=== PATIENT | female | born 1945 | race Caucasian/White ===

== ENCOUNTER 2022-09-30 15:05 | Observation (INO) ==
[2022-09-30 16:16] LABS: Basophils # (auto) 0.01 K/uL (0-0.2); Basophils % (auto) 0.1 %; Eosinophils # (auto) 0.07 K/uL (0-0.50); Eosinophils % (auto) 0.7 %; Hematocrit (blood only) 33.4 % (37.0-47.0); Hemoglobin 10.6 g/dl (12.0-16.0); Immature Granulocytes # (auto) 0.04 K/uL (0.01-0.20); Immature Granulocytes % (auto) 0.4 %; Lymphocytes # (auto) 2.23 K/uL (1.2-3.4); Lymphocytes % (auto) 21.2 %; Mean Corpuscular Hemoglobin 24.9 pg (25.0-34.0); Mean Corpuscular Hgb Conc 31.7 g/dL (32.0-36.0); Mean Corpuscular Volume 78.4 fL (80.0-100.0); Mean Platelet Volume 8.7 fL (9.4-12.4); Monocytes # (auto) 1.04 K/uL (0.11-0.59); Monocytes % (auto) 9.9 %; Neutrophils # (auto) 7.12 K/uL (1.40-6.50); Neutrophils % (auto) 67.7 %; Platelet Count 368 K/uL (130-400); RDW Coefficient of Variation 17.9 % (11.5-14.5); RDW Standard Deviation 50.6 fL (36.4-46.3); Red Blood Count 4.26 M/uL (4.20-5.40); White Blood Count 10.51 K/ul (4.8-10.8)
--- NOTE | 2022-09-30 16:22 | Emergency Department Note ---
Impression & Plan Partial small bowel obstruction, DVT (deep venous thrombosis) ED Provider Note NAME: RAMA LAWTON AGE: 77 SEX: F : 1945 ARRIVES VIA: Ambulance INFORMANT: Patient ED PROVIDER(S): Tommy Yanes DO CHIEF COMPLAINT: Swelling in the right lower extremity HPI: Patient is a 77-year-old female who presents to the ER for abdominal pain associated with swelling in the right lower extremity. Patient symptoms have been present and worsening for the past 2 months. She was seen at [place] and had a thrombectomy performed there in mid September. She was discharged on Coumadin. Her INR has been therapeutic. Her swelling in the right lower extremity has been getting worse. She admits to some nausea no vomiting. She did vomit over the weekend on Wednesday. Denies any headache or change in vision. No chest pain. No dysuria, urgency, or frequency. She denies any tingling or numbness but admits to pain and difficulty walking in the right leg. PAST MEDICAL HISTORY:See Below PAST SURGICAL HISTORY:See Below FAMILY HISTORY:See Below SOCIAL HISTORY:See Below HOME MEDICATIONS:See Below ALLERGIES:See Below VITALS:See Below PHYSICAL EXAMINATION: GENERAL: Sitting up in bed, alert, well appearing, well nourished, no distress, non-toxic EYE EXAM: normal conjunctiva. OROPHARYNX: no exudate, no erythema, lips, buccal mucosa, and tongue normal and mucous membranes are moist NECK: supple, no nuchal rigidity, no adenopathy, non-tender LUNGS: Clear to auscultation. Normal chest wall mechanics HEART: no murmurs, S1 normal and S2 normal ABDOMEN: abdomen soft, non-tender, normo-active bowel sounds, no masses, no rebound or guarding. UPPER EXTREMITIES: upper extremities are grossly normal. LOWER EXTREMITIES: Pitting edema in the right extremity significantly larger than the left. Difficult to obtain DP and PT. NEURO EXAM: Normal sensorium, cranial nerves II-XII grossly intact, normal speech, no gross weakness of arms, no gross weakness of legs. MEDICAL DECISION MAKING: Patient is a 77-year-old female who presents ER for above-stated complaint. IV was established blood work was obtained. Labs show no significant leukocytosis. Mild anemia 10. INR therapeutic at 2.1. BMP along LFTs bilirubin and troponin and lipase was negative. Patient does have a history of cancer and does have a positive PET scan per the report of the daughter. Patient is on Coumadin. Significant increase in swelling in the right leg consistent with failure of Coumadin. Ideally the patient would have been on Lovenox with a known cancer and DVT. Patient was placed on heparin drip. CT abdomen pelvis showed partial bowel obstruction. Discussed with Andre from general surgery who evaluate the patient. Discussed with Dr. Rivera for further evaluation management treatment from the hospitalist service. Patient was placed on heparin drip and given heparin bolus in light of the therapeutic Coumadin at 2.1 which is clearly not treating the DVT. Triage Nursing notes reviewed. Limited review of prior medical records performed Vital Signs: reviewed and remarkable for no significant abnormalities Differential diagnosis: Differential diagnoses includes but is not limited to gastritis, peptic ulcer disease, GERD, gallbladder disease, pancreatitis, small bowel obstruction, appendicitis, diverticulitis, hernia, urinary tract infection, torsion, perforation, trauma, infectious. ER treatment provided: See below Diagnostics interpreted by me include EKG and cardiac monitoring as listed below: -Cardiac Monitoring: An order was placed for continuous cardiac monitoring. The monitor shows a rate of 90 with sinus rhythm. -ECG: Sinus rhythm rate of 85 Normal axis No PVCs Septal Q waves QTc 421 -Laboratory studies:Interpreted by me as stated above in MDM and shown below. Imaging studies: Xrays: As interpreted by me: Portable AP upright 1 view of the chest shows no focal infiltrate Venous duplex of the right lower extremity shows extensive DVT Arterial duplex of the leg shows normal pulses CTs show: CT abdomen pelvis as described above Consultation(s): As described in MDM Procedures:none Critical Care: I have personally spent 32 minutes of critical care time in the direct management of this patient. This includes bedside care, interpretation of diagnostic studies, and testing, discussion with consultants, patient, and family members, and other required patient management activities. This 32 minutes is in excess of all separately billable procedures. Past Med/Surg History Social History Smoking Status: Never smoker Preferred Language: Estonian Feels Safe at Home: Yes Allergies Allergies Allergy/AdvReac Type Severity Reaction Status Date / Time No Known Drug Allergies Allergy Unknown . Verified 09/30/22 17:38 Home Meds Home Medications Medication Instructions Recorded Confirmed acetaminophen 500 mg tablet 500 - 1,000 mg PO Q6H PRN Pain 09/30/22 09/30/22 (Tylenol Extra Strength) hydrochlorothiazide 25 mg tablet 25 mg PO DAILY PRN swelling in legs 09/30/22 09/30/22 metoprolol succinate 50 mg 50 mg PO DAILY 09/30/22 09/30/22 tablet,extended release 24 hr oxycodone-acetaminophen 5 mg-325 1 tab PO Q6 PRN Pain 09/30/22 09/30/22 mg tablet pantoprazole 40 mg tablet,delayed 40 mg PO QAM 09/30/22 09/30/22 release promethazine 12.5 mg tablet 12.6 mg PO Q6 PRN Nausea And 09/30/22 09/30/22 Vomiting warfarin 2.5 mg tablet 2.5 mg PO UD 09/30/22 09/30/22 Results & Data (ED) Vital Signs Vital Signs - 24 hr 09/30/22 15:13 09/30/22 16:01 09/30/22 16:21 Temperature 36.4 C L Temperature Source Temporal Artery Scan Pulse Rate 92 H 85 Pulse Rate [Apical] 88 Pulse Rate from SpO2 Sensor Pulse Rhythm [Apical] Regular Respiratory Rate 20 17 Respiratory Depth Normal Normal Blood Pressure 136/79 Blood Pressure [Left Arm] 156/89 H Blood Pressure Mean 98 Blood Pressure Mean [Left Arm] 111 Pulse Oximetry 96 95 Oxygen Delivery Method Room Air Room Air Sepsis Recent Fever Within 48 Hours No Sepsis New/Unexplained Change in Mental Status N/A Sepsis Action Taken by Nursing No Action Required 09/30/22 16:20 09/30/22 16:20 09/30/22 16:30 Temperature Temperature Source Pulse Rate 86 86 Pulse Rate [Apical] Pulse Rate from SpO2 Sensor 87 86 Pulse Rhythm [Apical] Respiratory Rate 22 17 Respiratory Depth Blood Pressure 156/99 H Blood Pressure [Left Arm] Blood Pressure Mean 101 Blood Pressure Mean [Left Arm] Pulse Oximetry 95 96 Oxygen Delivery Method Sepsis Recent Fever Within 48 Hours Sepsis New/Unexplained Change in Mental Status Sepsis Action Taken by Nursing 09/30/22 18:26 09/30/22 18:30 09/30/22 18:40 Temperature Temperature Source Pulse Rate 90 90 90 Pulse Rate [Apical] Pulse Rate from SpO2 Sensor 90 90 92 H Pulse Rhythm [Apical] Respiratory Rate 18 21 20 Respiratory Depth Blood Pressure Blood Pressure [Left Arm] Blood Pressure Mean Blood Pressure Mean [Left Arm] Pulse Oximetry 97 97 96 Oxygen Delivery Method Sepsis Recent Fever Within 48 Hours Sepsis New/Unexplained Change in Mental Status Sepsis Action Taken by Nursing 09/30/22 19:07 09/30/22 20:09 Temperature Temperature Source Pulse Rate Pulse Rate [Apical] 92 H 101 H Pulse Rate from SpO2 Sensor Pulse Rhythm [Apical] Respiratory Rate 20 20 Respiratory Depth Normal Blood Pressure Blood Pressure [Left Arm] 119/70 140/85 Blood Pressure Mean Blood Pressure Mean [Left Arm] 86 103 Pulse Oximetry 96 96 Oxygen Delivery Method Room Air Room Air Sepsis Recent Fever Within 48 Hours Sepsis New/Unexplained Change in Mental Status Sepsis Action Taken by Nursing Laboratory Data 09/30/22 15:58 09/30/22 15:58 Lab Results 09/30/22 09/30/22 09/30/22 Range/Units 15:58 15:58 15:58 WBC 10.51 (4.8-10.8) K/ul RBC 4.26 (4.20-5.40) M/uL Hgb 10.6 L (12.0-16.0) g/dl Hct 33.4 L (37.0-47.0) % MCV 78.4 L (80.0-100.0) fL MCH 24.9 L (25.0-34.0) pg MCHC 31.7 L (32.0-36.0) g/dL RDW Std Deviation 50.6 H (36.4-46.3) fL RDW Coeff of Adam 17.9 H (11.5-14.5) % Plt Count 368 (130-400) K/uL MPV 8.7 L (9.4-12.4) fL Immature Gran % (Auto) 0.4 % Neut % (Auto) 67.7 % Lymph % (Auto) 21.2 % Bibb % (Auto) 9.9 % Eos % (Auto) 0.7 % Baso % (Auto) 0.1 % Neut # (Auto) 7.12 H (1.40-6.50) K/uL Lymph # (Auto) 2.23 (1.2-3.4) K/uL Bibb # (Auto) 1.04 H (0.11-0.59) K/uL Eos # (Auto) 0.07 (0-0.50) K/uL Baso # (Auto) 0.01 (0-0.2) K/uL Immature Gran # (Auto) 0.04 (0.01-0.20) K/uL PT 21.9 H (9.0-12.0) Seconds INR 2.1 H (0.9-1.1) APTT (21.0-31.0) Seconds PTT Ratio Sodium 135 L (136-145) mmol/L Potassium 3.9 (3.5-5.1) mmol/L Chloride 104 (98-107) mmol/L Carbon Dioxide 23 (21-32) mmol/L Anion Gap 8 (3-11) BUN 36 H (6-23) mg/dl Creatinine 1.02 (0.6-1.2) mg/dl Est Cr Clr Drug Dosing Not Reportable Est GFR ( Amer) 61.4 ml/min Est GFR (Non-Af Amer) 53.0 ml/min BUN/Creatinine Ratio 35.3 H (10-20) Glucose 123 H (70-99(Fasting)) mg/dl Calcium 8.4 L (8.6-10.3) mg/dl Total Bilirubin 0.3 (0.2-1.0) mg/dl AST 10 L (13-39) U/L ALT 6 L (7-52) U/L Alkaline Phosphatase 54 (34-104) U/L Troponin I High Sens 6.6 (0-14) pg/ml Total Protein 6.5 (6.0-8.3) gm/dl Albumin 3.0 L (3.4-5.0) gm/dl Globulin 3.5 (2.5-4.0) gm/dl Albumin/Globulin Ratio 0.9 (0.9-2) Lipase 19 (11-82) U/L 09/30/22 Range/Units 15:58 WBC (4.8-10.8) K/ul RBC (4.20-5.40) M/uL Hgb (12.0-16.0) g/dl Hct (37.0-47.0) % MCV (80.0-100.0) fL MCH (25.0-34.0) pg MCHC (32.0-36.0) g/dL RDW Std Deviation (36.4-46.3) fL RDW Coeff of Adam (11.5-14.5) % Plt Count (130-400) K/uL MPV (9.4-12.4) fL Immature Gran % (Auto) % Neut % (Auto) % Lymph % (Auto) % Bibb % (Auto) % Eos % (Auto) % Baso % (Auto) % Neut # (Auto) (1.40-6.50) K/uL Lymph # (Auto) (1.2-3.4) K/uL Bibb # (Auto) (0.11-0.59) K/uL Eos # (Auto) (0-0.50) K/uL Baso # (Auto) (0-0.2) K/uL Immature Gran # (Auto) (0.01-0.20) K/uL PT (9.0-12.0) Seconds INR (0.9-1.1) APTT 35.6 H (21.0-31.0) Seconds PTT Ratio 1.3 Sodium (136-145) mmol/L Potassium (3.5-5.1) mmol/L Chloride (98-107) mmol/L Carbon Dioxide (21-32) mmol/L Anion Gap (3-11) BUN (6-23) mg/dl Creatinine (0.6-1.2) mg/dl Est Cr Clr Drug Dosing Est GFR ( Amer) ml/min Est GFR (Non-Af Amer) ml/min BUN/Creatinine Ratio (10-20) Glucose (70-99(Fasting)) mg/dl Calcium (8.6-10.3) mg/dl Total Bilirubin (0.2-1.0) mg/dl AST (13-39) U/L ALT (7-52) U/L Alkaline Phosphatase (34-104) U/L Troponin I High Sens (0-14) pg/ml Total Protein (6.0-8.3) gm/dl Albumin (3.4-5.0) gm/dl Globulin (2.5-4.0) gm/dl Albumin/Globulin Ratio (0.9-2) Lipase (11-82) U/L Administered Medications Heparin Sodium/Dextrose (Heparin Sodium/Dextrose) 25,000 units in 500 mls @ 27 mls/hr IV .[id number] [facility]; Protocol Stop: 10/30/22 19:59 Last Admin: 09/30/22 20:22 Dose: 1,350 units/hr, 27 mls/hr Documented By: Co-signed By: AY Discontinued Medications Heparin Sodium (Porcine) (Heparin Sod (Porcine) 1000 Unit/Ml) 6,000 units IV NOW ONE Stop: 09/30/22 20:16 Last Admin: 09/30/22 20:22 Dose: 6,000 units Documented By: Co-signed By: AY Heparin Sodium/Dextrose (Heparin Iv Adult Wt-Based Standard With Bolus Protocol) 1 each IV NOW STA; Protocol Stop: 09/30/22 19:42 Last Admin: 09/30/22 20:27 Dose: 1 each Documented By: Ioversol (Optiray 320 100ml) 93 ml IV ONCE ONE Stop: 09/30/22 18:21 Last Admin: 09/30/22 18:22 Dose: 93 ml Documented By: JONAS Imaging Data Radiologist's Impression: Abdomen/Pelvis CT 09/30/22 16:19 CT abd pelvis IV con only CLINICAL HISTORY: llq abd pain and swelling in rle TECHNIQUE: Helical axial images of the abdomen and pelvis were obtained and displayed. Automated dose lowering techniques and/or adjustment according to patient size were utilized for this exam. This exam was performed with intrave nous contrast. CT DOSE: 1380.75 mGy.cm COMPARISON: None available at the time of this dictation. FINDINGS: Lower chest: No acute abnormality. Liver: Unremarkable. No focal lesions are seen. Gallbladder and biliary tree: Patient is status post cholecystectomy. No intra- or extrahepatic biliary ductal dilation. Pancreas: Unremarkable, no focal lesions. Spleen: Unremarkable. Adrenals: Unremarkable. Kidneys and ureters: Unremarkable. Bladder: Unremarkable. Reproductive organs: Surgical clips are seen about the uterus. There is marked thickening of the endometrium for a postmenopausal patient with the appearance of spiculated margins. Bowel: Numerous gas-distended loops of small bowel measure up to 35 mm in diameter. Under distended distal bowel is seen. There is a gradual transition to under distended bowel which appears to center around the endometrial mass in the pelvis. Postsurgical changes of partial colectomy are seen with a relatively small amount of stool. Lymph nodes Retroperitoneal: There is a 13 mm right retroperitoneal lymph node. Additional smaller nodes are seen. Pelvic: Unremarkable. Mesenteric: Subcentimeter lymph nodes are noted. Peritoneum: Ill-defined mesenteric nodules are seen for example in the anterior pelvis measuring approximately 16 mm in diameter. Moderate ascites is seen. Vessels: There is questionable narrowing of the right iliac vein at the level of the pelvis. The distal vein appears distended. Aortic calcifications are seen and there is a tiny infrarenal aneurysm measuring 20 mm. Abdominal wall: Prominent fat stranding and swelling is seen most prominently in the right lower extremity. Bones: Degenerative changes in the visualized spine. IMPRESSION: 1. There is marked thickening of the endometrial cavity with spiculation concerning for metastatic endometrial carcinoma. Prominent lymph nodes are seen in the mesentery and retroperitoneum and there are ill-defined mesenteric mass is concerning for peritoneal deposits. Prominent ascites is seen. 2. Partial small bowel obstruction with numerous distended loops of small bowel which appear to transition sagittally to underdistended bowel distal to the pelvic mass. 3. Additional findings as above. ACT 112: Negative or not required by law. Electronically signed by: Cristi Pastrana M.D. 09/30/2022 7:25 PM Venous Doppler Study 09/30/22 16:19 US venous doppler LE RT CLINICAL HISTORY: swelling rle TECHNIQUE: Right lower extremity real-time compression venous ultrasound with Color Doppler imaging. Utilizing real-time ultrasonic imaging multiple real time high-resolution ultrasonic images with compression and noncompression maneuvers of the deep venous system in addition to color doppler imaging were performed from the common femoral vein through the proximal calf veins. COMPARISON: None available at the time of this dictation. FINDINGS/IMPRESSION: Occlusive thrombus extends from the right common femoral vein through the calf vessels. There is also extension into the greater saphenous vein. ACT 112: Negative or not required by law. Electronically signed by: Cristi Pastrana M.D. 09/30/2022 5:34 PM Duplex Scan Lower Extremity Artery 09/30/22 16:24 US arterial duplex LE RT CLINICAL HISTORY: rle swelling TECHNIQUE: Real-time grayscale and color and spectral Doppler ultrasound imaging of the right lower extremity arteries was performed. Measurements calculated based on NASCET criteria. COMPARISON: None available at the time of this dictation. FINDINGS: Biphasic waveforms are seen throughout the right lower extremity without elevated velocities. IMPRESSION: Biphasic waveforms without hemodynamically significant stenosis. ACT 112: Negative or not required by law. Electronically signed by: Cristi Pastrana M.D. 09/30/2022 5:48 PM Discharge Plan Visit Data Chief Complaint: Abdominal Pain Stated Complaint: ABDOMINAL PAIN, SWELLING TO GROIN ED Provider: Tommy Yanes Discharge Problem: Partial small bowel obstruction, DVT (deep venous thrombosis) Forms Stand Alone Forms: [facility] Prescriptions Prescriptions: No Action warfarin 2.5 mg tablet 2.5 mg PO UD Rx Instructions: per INR 2.6 yesterday metoprolol succinate 50 mg tablet extended release 24 hr 50 mg PO DAILY pantoprazole 40 mg tablet,delayed release (DR/EC) 40 mg PO QAM hydrochlorothiazide 25 mg tablet 25 mg PO DAILY PRN (Reason: swelling in legs) promethazine 12.5 mg tablet 12.6 mg PO Q6 PRN (Reason: Nausea And Vomiting) acetaminophen [Tylenol Extra Strength] 500 mg Tablet 500 - 1,000 mg PO Q6H PRN (Reason: Pain) Rx Instructions: doseage depends on last time having percocet oxycodone-acetaminophen 5-325 mg tablet 1 tab PO Q6 PRN (Reason: Pain) Referrals Referrals: John Covington [Primary Care Provider] -
[2022-09-30 16:27] LABS: Anion Gap 8 (3-11); Blood Urea Nitrogen 36 mg/dl (6-23); Carbon Dioxide 23 mmol/L (21-32); Chloride 104 mmol/L (98-107); Potassium 3.9 mmol/L (3.5-5.1); Sodium 135 mmol/L (136-145)
[2022-09-30 16:28] LABS: Alanine Aminotransferase 6 U/L (7-52); Albumin Globulin Ratio 0.9 (0.9-2); Alkaline Phosphatase 54 U/L (34-104); Aspartate Aminotransferase 10 U/L (13-39); BUN Creatinine Ratio 35.3 (10-20); Bilirubin,Total 0.3 mg/dl (0.2-1.0); Calcium 8.4 mg/dl (8.6-10.3); Est GFR (African American) 61.4 ml/min; Globulin 3.5 gm/dl (2.5-4.0); Glucose 123 mg/dl (70-99(Fasting)); Lipase 19 U/L (11-82); Total Protein 6.5 gm/dl (6.0-8.3)
--- NOTE | 2022-09-30 16:35 | Electrocardiogram Report ---
Test Reason : Blood Pressure : / mmHG Vent. Rate : 085 BPM Atrial Rate : 085 BPM P-R Int : 148 ms QRS Dur : 076 ms QT Int : 354 ms P-R-T Axes : 047 007 028 degrees QTc Int : 421 ms Normal sinus rhythm Anterior infarct , age undetermined Abnormal ECG No previous ECGs available Confirmed by Santi Carrillo ([id number]) on 09/30/2022 4:34:46 PM Referred By: Confirmed By:Santi Carrillo
[2022-09-30 16:36] LABS: INR 2.1 (0.9-1.1); Prothrombin Time 21.9 Seconds (9.0-12.0)
[2022-09-30 17:16] LABS: Troponin I High Sensitivity 6.6 pg/ml (0-14)
--- NOTE | 2022-09-30 17:36 | Ultrasound Report ---
US venous doppler LE RT CLINICAL HISTORY: swelling rle TECHNIQUE: Right lower extremity real-time compression venous ultrasound with Color Doppler imaging. Utilizing real-time ultrasonic imaging multiple real time high-resolution ultrasonic images with comp ression and noncompression maneuvers of the deep venous system in addition to color doppler imaging w ere performed from the common femoral vein through the proximal calf veins. COMPARISON: None available at the time of this dictation. FINDINGS/IMPRESSION: Occlusive thrombus extends from the right common femoral vein through the calf vessels. There is also extension into the greater saphenous vein. ACT 112: Negative or not required by law. Electronically signed by: Cristi Pastrana M.D. 09/30/2022 5:34 PM
--- NOTE | 2022-09-30 17:50 | Ultrasound Report ---
US arterial duplex LE RT CLINICAL HISTORY: rle swelling TECHNIQUE: Real-time grayscale and color and spectral Doppler ultrasound imaging of the right lower e xtremity arteries was performed. Measurements calculated based on NASCET criteria. COMPARISON: None available at the time of this dictation. FINDINGS: Biphasic waveforms are seen throughout the right lower extremity without elevated velocities. IMPRESSION: Biphasic waveforms without hemodynamically significant stenosis. ACT 112: Negative or not required by law. Electronically signed by: Cristi Pastrana M.D. 09/30/2022 5:48 PM
[2022-09-30] MEDS ORDERED: OPTIRAY 320 100ml IV ONE (18:20)
--- NOTE | 2022-09-30 19:27 | CT Scan Report ---
CT abd pelvis IV con only CLINICAL HISTORY: llq abd pain and swelling in rle TECHNIQUE: Helical axial images of the abdomen and pelvis were obtained and displayed. Automated dose lowering techniques and/or adjustment according to patient size were utilized for this exam. This e xam was performed with intravenous contrast. CT DOSE: 1380.75 mGy.cm COMPARISON: None available at the time of this dictation. FINDINGS: Lower chest: No acute abnormality. Liver: Unremarkable. No focal lesions are seen. Gallbladder and biliary tree: Patient is status post cholecystectomy. No intra- or extrahepatic bilia ry ductal dilation. Pancreas: Unremarkable, no focal lesions. Spleen: Unremarkable. Adrenals: Unremarkable. Kidneys and ureters: Unremarkable. Bladder: Unremarkable. Reproductive organs: Surgical clips are seen about the uterus. There is marked thickening of the endo metrium for a postmenopausal patient with the appearance of spiculated margins. Bowel: Numerous gas-distended loops of small bowel measure up to 35 mm in diameter. Under distended d istal bowel is seen. There is a gradual transition to under distended bowel which appears to center a round the endometrial mass in the pelvis. Postsurgical changes of partial colectomy are seen with a r elatively small amount of stool. Lymph nodes Retroperitoneal: There is a 13 mm right retroperitoneal lymph node. Additional smaller nodes are seen . Pelvic: Unremarkable. Mesenteric: Subcentimeter lymph nodes are noted. Peritoneum: Ill-defined mesenteric nodules are seen for example in the anterior pelvis measuring appr oximately 16 mm in diameter. Moderate ascites is seen. Vessels: There is questionable narrowing of the right iliac vein at the level of the pelvis. The dist al vein appears distended. Aortic calcifications are seen and there is a tiny infrarenal aneurysm marcelino suring 20 mm. Abdominal wall: Prominent fat stranding and swelling is seen most prominently in the right lower extr emity. Bones: Degenerative changes in the visualized spine. IMPRESSION: 1. There is marked thickening of the endometrial cavity with spiculation concerning for metastatic e ndometrial carcinoma. Prominent lymph nodes are seen in the mesentery and retroperitoneum and there a re ill-defined mesenteric mass is concerning for peritoneal deposits. Prominent ascites is seen. 2. Partial small bowel obstruction with numerous distended loops of small bowel which appear to ward sition sagittally to underdistended bowel distal to the pelvic mass. 3. Additional findings as above. ACT 112: Negative or not required by law. Electronically signed by: Cristi Pastrana M.D. 09/30/2022 7:25 PM
[2022-09-30] MEDS ORDERED: Heparin IV Adult Wt-Based Standard WITH Bolus Protocol IV STA (19:41)
--- NOTE | 2022-09-30 19:56 | History & Physical Report ---
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 in [place], initially scheduled for biopsies of lymph nodes and endometrial/abdominal masses in November -Unsure if she will be able to wait until November for biopsy and initiation of treatment -For now we can treat her acute issues here, but could consider eventual transfer to [facility] for expedited biopsies -Was on Warfarin, INR today at 2.1, was transitioned to a heparin drip in the ED -Will likely need to be transferred to [facility] prior to discharge or transfer -AM CBC, CMP, Mag, PT/INR and aptt -NPO except meds for now with partial SBO (2) Partial small bowel obstruction: Plan: -Found on CT of the abd/pelvis today -Currently comfortable, labs BM was yesterday but is still passing gas -Was evaluated by General Surgery in the ED, recommends conservative treatment for now -NPO except meds, will give light IV fluids overnight (3) Endometrial mass: Plan: -Patient with known masses of the endometrium with Prominent lymph nodes are seen in the mesentery and retroperitoneum and there are ill-defined mesenteric mass is concerning for peritoneal deposits -Patient also noted to have prominent ascites, likely due to her known cancer and vein compression, could consider IR consult for drainage but would be difficult due to current anticoagulation for DVT -Will need biopsies at [facility] as discussed above (4) HTN (hypertension): Plan: -Stable -Hold hydrochlorothiazide -Will continue PO metoprolol to prevent rebound tachycardia Plan The patient was discussed with Dr. Rivera at the time of the admission History of Present Illness Chief Complaint: abdominal pain Primary Care Provider: John Langley is a 77 year old female with a PMH significant for cervical cancer S/P Chemo/radiation/brachytherapy at [facility] approximately 10 years ago, colon cancer S/P partial colectomy approximately 3 years ago, recently diagnosed PE's and RLE DVT on Warfarin, HTN, who presented to the [facility] ED on 09/30/22 via ALS for abdominal pain. In the ED vitals were stable. Labs were significant for an INR of 2.1, BUN of 36, sodium of 135 and calcium of 8.4. She was noted to have a significantly swollen/erythematous right LE. Venous doppler of the RLE was read as "Occlusive thrombus extends from the right common femoral vein through the calf vessels. There is also extension into the greater saphenous vein.". Arterial doppler of the RLE was read as "Biphasic waveforms without hemodynam ically significant stenosis.". Ct of the abd/pelvis with IV con was read as "1.There is marked thickening of the endometrial cavity with spiculation concerning for metastatic endometrial carcinoma. Prominent lymph nodes are seen in the mesentery and retroperitoneum and there are ill-defined mesenteric mass is concerning for peritoneal deposits. Prominent ascites is seen. 2. Partial small bowel obstruction with numerous distended loops of small bowel which appear to transition sagittally to underdistended bowel distal to the pelvic mass. 3. Additional findings as above.". The patient was evaluated by general surgery for her partial SBO who recommended conservative at this time. Prior to admission the patient was started on a heparin drip. At time of the exam the exam the patient was lying in bed, tearful but in no acute distress with her Daughter (Mckenna) sitting bedside, history was obtained from both. Her daughter states that the patient was previously diagnosed with cervical cancer which invaded her uterine wall. She completed chemo/radiation/brachytherapy but they did not remove her uterus as the procedure would have been too complicated. They state that all of this treatment was down in [place] at [facility]. Approximately 3 years ago she was diagnosed with colon cancer and underwent partial colectomy at [facility]. She had been in her normal state of health until she had a PET scan completed on August 13 where her recurrently abdominal masses and lymphadenopathy were found. They have been coordinating with her [facility] provider for biopsy, which cannot be scheduled until November at [facility]. On 09/12 she presented to the [facility] ED and was diagnosed with RLE DVT and PE's. She was initially started on a heparin drip and transitioned to eliquis on discharge. On 09/14 she returned to the [facility] ED with worsening swelling, erythema, and pain of the RLE. She underwent IR thrombectomy of the recurrent DVT. Her daughter states they were told the large lymph nodes compressing the large veins in the RLE which is contributing to her DVT's. She was transitioned to Warfarin and discharged home on 09/24. She started to develop Nausea and non- bloody emesis on 09/27 where she presented back to the [facility] ED where she was given IV fluids and zofran with improvement of symptoms. Her daughter brought her to our ED today for worsening abd pain and RLE swelling/eryth graciela/pain. The patient and her daughter are aware of her recurrent cancer which is contributing to her partial SBO and recurrent DVT's. Her daughter is concerned that her mother is not going to be able to wait until November for biopsies of her known masses and enlarged lymph nodes. For now they are in agreement with initial treatment of her acute issues here with possible transfer to [place] if able for expedited biopsy and treatment. Her last bowel movement was yesterday, she is still passing gas today. The patient denies recent fever, chills, chest pain, SOB, hematemesis, dysuria, hematuria, melena, and recent trauma. We had a long discussion regarding code status, she wishes to be a DNR/DNI. Please refer to Dr. Rivera's attestation for any changes to the treatment plan. Allergies Allergy/AdvReac Type Severity Reaction Status Date / Time No Known Drug Allergies Allergy Unknown . Verified 09/30/22 17:38 Home Medications Medication Instructions Recorded Confirmed Type acetaminophen 500 mg tablet 500 - 1,000 mg PO Q6H PRN Pain 09/30/22 09/30/22 History (Tylenol Extra Strength) hydrochlorothiazide 25 mg tablet 25 mg PO DAILY PRN swelling in legs 09/30/22 09/30/22 History metoprolol succinate 50 mg 50 mg PO DAILY 09/30/22 09/30/22 History tablet,extended release 24 hr oxycodone-acetaminophen 5 mg-325 1 tab PO Q6 PRN Pain 09/30/22 09/30/22 History mg tablet pantoprazole 40 mg tablet,delayed 40 mg PO QAM 09/30/22 09/30/22 History release promethazine 12.5 mg tablet 12.6 mg PO Q6 PRN Nausea And 09/30/22 09/30/22 History Vomiting warfarin 2.5 mg tablet 2.5 mg PO UD 09/30/22 09/30/22 History Past Med/Surg History Social History Smoking Status: Never smoker Second Hand Exposure: No; Do You Dip or Chew Tobacco: No; Tobacco Cessation Education Requested by Patient: No Hx Alcohol Use: No Hx Substance Use: No Preferred Language: Hungarian Communication Ability: Effective 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 Required: No Beliefs That Will Affect Care: None Current Living Situation: Alone Feels Safe at Home: Yes Safety Concerns: Feels Safe At This Time Assistive Devices: Bedside Commode Physical Exam Physical Exam: Physical Exam: General: In no acute distress, stated age, chronically ill-appearing but non- toxic HEENT: Normocephalic, atraumatic, no scleral icterus, pupils around round, symmetrical, and reactive to light, moist mucus membranes, trachea midline, no thyromegaly Chest/Pulm: No respiratory distress, symmetrical chest expansion, clear breath sounds throughout Cardiac: RRR, no murmurs noted Abdomen: Negative for ascites and bruising, normoactive bowel sounds, soft, mildly tender in the upper abdominal ayers, no rebound tenderness Musculoskeletal: No acute trauma in the BL upper and lower extremities Extremities: Radial, dorsalis pedis, and posterior tibial pulses are palpable and intact in the LLE, RLE with significant (4+) edema with erythema and tenderness to palpation Skin: RLE is erythematous and not consistent with cellulitis Neuro: Alert and oriented to person, place, month, year, and president, no focal defects, no tremors noted Psych: anxious/tearful due to current medical issues, but pleasant and cooperative during the exam Results & Data Results & Data Vital Signs (Past 12 Hours) Vital Signs Temp Pulse Pulse Resp BP BP Pulse Ox 09/30/22 19:07 92 H 20 119/70 96 09/30/22 18:40 90 20 96 09/30/22 18:30 90 21 97 09/30/22 18:26 90 18 97 09/30/22 16:30 86 17 96 09/30/22 16:20 86 22 95 09/30/22 16:20 156/99 H 09/30/22 16:21 85 09/30/22 16:01 88 17 156/89 H 95 09/30/22 15:13 36.4 C L 92 H 20 136/79 96 O2 Del Method 09/30/22 19:07 Room Air 09/30/22 18:40 09/30/22 18:30 09/30/22 18:26 09/30/22 16:30 09/30/22 16:20 09/30/22 16:20 09/30/22 16:21 09/30/22 16:01 Room Air 09/30/22 15:13 Room Air Laboratory Results Abnormal lab results 09/30/22 09/30/22 09/30/22 Range/Units 15:58 15:58 15:58 Hgb 10.6 L (12.0-16.0) g/dl Hct 33.4 L (37.0-47.0) % MCV 78.4 L (80.0-100.0) fL MCH 24.9 L (25.0-34.0) pg MCHC 31.7 L (32.0-36.0) g/dL RDW Std Deviation 50.6 H (36.4-46.3) fL RDW Coeff of Adam 17.9 H (11.5-14.5) % MPV 8.7 L (9.4-12.4) fL Neut # (Auto) 7.12 H (1.40-6.50) K/uL Anderson # (Auto) 1.04 H (0.11-0.59) K/uL PT 21.9 H (9.0-12.0) Seconds INR 2.1 H (0.9-1.1) APTT (21.0-31.0) Seconds Sodium 135 L (136-145) mmol/L BUN 36 H (6-23) mg/dl BUN/Creatinine Ratio 35.3 H (10-20) Glucose 123 H (70-99(Fasting)) mg/dl Calcium 8.4 L (8.6-10.3) mg/dl AST 10 L (13-39) U/L ALT 6 L (7-52) U/L Albumin 3.0 L (3.4-5.0) gm/dl 09/30/22 Range/Units 15:58 Hgb (12.0-16.0) g/dl Hct (37.0-47.0) % MCV (80.0-100.0) fL MCH (25.0-34.0) pg MCHC (32.0-36.0) g/dL RDW Std Deviation (36.4-46.3) fL RDW Coeff of Adam (11.5-14.5) % MPV (9.4-12.4) fL Neut # (Auto) (1.40-6.50) K/uL Anderson # (Auto) (0.11-0.59) K/uL PT (9.0-12.0) Seconds INR (0.9-1.1) APTT 35.6 H (21.0-31.0) Seconds Sodium (136-145) mmol/L BUN (6-23) mg/dl BUN/Creatinine Ratio (10-20) Glucose (70-99(Fasting)) mg/dl Calcium (8.6-10.3) mg/dl AST (13-39) U/L ALT (7-52) U/L Albumin (3.4-5.0) gm/dl Diagnostic Findings Abdomen/Pelvis CT 09/30/22 16:19 CT abd pelvis IV con only CLINICAL HISTORY: llq abd pain and swelling in rle TECHNIQUE: Helical axial images of the abdomen and pelvis were obtained and displayed. Automated dose lowering techniques and/or adjustment according to patient size were utilized for this exam. This exam was performed with intravenous contrast. CT DOSE: 1380.75 mGy.cm COMPARISON: None available at the time of this dictation. FINDINGS: Lower chest: No acute abnormality. Liver: Unremarkable. No focal lesions are seen. Gallbladder and biliary tree: Patient is status post cholecystectomy. No intra- or extrahepatic biliary ductal dilation. Pancreas: Unremarkable, no focal lesions. Spleen: Unremarkable. Adrenals: Unremarkable. Kidneys and ureters: Unremarkable. Bladder: Unremarkable. Reproductive organs: Surgical clips are seen about the uterus. There is marked thickening of the endometrium for a postmenopausal patient with the appearance of spiculated margins. Bowel: Numerous gas-distended loops of small bowel measure up to 35 mm in diameter. Under distended distal bowel is seen. There is a gradual transition to under distended bowel which appears to center around the endometrial mass in the pelvis. Postsurgical changes of partial colectomy are seen with a relatively small amount of stool. Lymph nodes Retroperitoneal: There is a 13 mm right retroperitoneal lymph node. Additional smaller nodes are seen. Pelvic: Unremarkable. Mesenteric: Subcentimeter lymph nodes are noted. Peritoneum: Ill-defined mesenteric nodules are seen for example in the anterior pelvis measuring approximately 16 mm in diameter. Moderate ascites is seen. Vessels: There is questionable narrowing of the right iliac vein at the level of the pelvis. The distal vein appears distended. Aortic calcifications are seen and there is a tiny infrarenal aneurysm measuring 20 mm. Abdominal wall: Prominent fat stranding and swelling is seen most prominently in the right lower extremity. Bones: Degenerative changes in the visualized spine. IMPRESSION: 1. There is marked thickening of the endometrial cavity with spiculation concerning for metastatic endometrial carcinoma. Prominent lymph nodes are seen in the mesentery and retroperitoneum and there are ill-defined mesenteric mass is concerning for peritoneal deposits. Prominent ascites is seen. 2. Partial small bowel obstruction with numerous distended loops of small bowel which appear to transition sagittally to underdistended bowel distal to the p elvic mass. 3. Additional findings as above. ACT 112: Negative or not required by law. Electronically signed by: Cristi Pastrana M.D. 09/30/2022 7:25 PM Venous Doppler Study 09/30/22 16:19 US venous doppler LE RT CLINICAL HISTORY: swelling rle TECHNIQUE: Right lower extremity real-time compression venous ultrasound with Color Doppler imaging. Utilizing real-time ultrasonic imaging multiple real time high-resolution ultrasonic images with compression and noncompression maneuvers of the deep venous system in addition to color doppler imaging were performed from the common femoral vein through the proximal calf veins. COMPARISON: None available at the time of this dictation. FINDINGS/IMPRESSION: Occlusive thrombus extends from the right common femoral vein through the calf vessels. There is also extension into the greater saphenous vein. ACT 112: Negative or not required by law. Electronically signed by: Cristi Pastrana M.D. 09/30/2022 5:34 PM Duplex Scan Lower Extremity Artery 09/30/22 16:24 US arterial duplex LE RT CLINICAL HISTORY: rle swelling TECHNIQUE: Real-time grayscale and color and spectral Doppler ultrasound imaging of the right lower extremity arteries was performed. Measurements calculated based on NASCET criteria. COMPARISON: None available at the time of this dictation. FINDINGS: Biphasic waveforms are seen throughout the right lower extremity without elevated velocities. IMPRESSION: Biphasic waveforms without hemodynamically significant stenosis. ACT 112: Negative or not required by law. Electronically signed by: Cristi Pastrana M.D. 09/30/2022 5:48 PM ECG Additional Comments: Normal sinus rhythm Anterior infarct , age undetermined Abnormal ECG No previous ECGs available Confirmed by Santi Carrillo ([id number]) on 09/30/2022 4:34:46 PM Code Status & VTE Plan Code Status DNR/DNI VTE Prophylaxis Plan VTE Prophylaxis will be ordered: Yes Supervising Physician Co-Signing Physician Notes Patient seen and examined, chart reviewed, case discussed with JD Cordova and I agree with the assessment and plan as above. PG Care Time/CCT Total # of Minutes Spent Total Time Spent with Patient: Total time spent is greater than 50% in coordination of care (as documented) at patient's floor/unit and/or counseling patient: [place] [address] INT INP/OBS CARE 3/75MIN Patient Type Established Medical Decision Making High Complexity Diagnoses DVT (deep venous thrombosis) I82.409 Partial small bowel obstruction K56.600 Endometrial mass N94.89 HTN (hypertension) I10
[2022-09-30] MEDS ORDERED: HEPARIN SOD (PORCINE) 1000 UNIT/ML IV ONE ×2 (19:57→20:15)
--- NOTE | 2022-09-30 20:13 | Surgery Consultation ---
Date of Consultation September 30, 2022 Assessment & Plan (1) Partial small bowel obstruction: I discussed with the treating emergency room physician patient is being admitted on the hospitalist service. The patient has been initiated on a heparin drip secondary to her recurrent DVT. Concerning the patient's partial small bowel obstruction we recommend the following: At the present time the patient has an entirely benign abdominal exam. For this evening I recommend keeping the patient n.p.o. and if her abdominal exam improves or remains benign and she continues to pass flatus consideration be given to advancing her diet beginning with clear liquids tomorrow I did discuss the possibility with the patient that if her clinical exam deteriorates or if nausea and vomiting ensue an NG tube may require be required but I do not feel that this is needed at this time Intravenous fluids to be utilized for hydration As needed analgesics and antiemetics to be provided Supervising Physician Co-Signing Physician Notes Dr Dubon- discussed case with Andre Michelle and reviewed history and studies- pt with abd pain, PSbo, Rt LE DVT now on IV heparin. 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 Consider paracentesis to assess ascites for malignancy. Nonoperative mgt of sbo, If she were to require surgery- best to transfer to [place] History of Present Illness Reason for Consultation: Partial small bowel History of Present Illness This is a 77-year-old female who presented to [facility] emergency department secondary to right lower extremity swelling along with a cramp-like abdominal pain. This patient has a complex past medical history which was consistent for previous colon cancer for which she has undergone a partial colon resection. She was unsure of the exact date but believes it was 5 to 10 years ago and was informed by Dr. Odin Neal in [facility]. Patient says that she has had a partial small bowel obstruction since this surgery but did not require surgical intervention. Patient has also had history of uterine cancer for which she underwent chemotherapy along with radiation therapy. Patient has not undergone any surgical resection for this issue and she does follow with a [employer] oncologist at [facility]. She was most recently seen by her BOX [employer] OPER[employer] oncologist on August 17 as patient was noted to have an abnormal PET scan. According to the patient and her daughter she did have a vaginal exam performed which was unrevealing so the patient is subsequent been scheduled for a uterine biopsy which is scheduled for November of this year. Concerning the patient's current abdominal pain she describes a cramp-like abdominal pain that has been present for 1 month. She says that the pain comes and goes without radiation. She notes that the pain is somewhat worse when she is constipated and she reports alternating periods of constipation with loose bowel movements. Approximate 3 days ago she did have nausea and vomiting which has resolved. Over the past several weeks she reports a poor appetite. She has not had any fevers, shakes, or chills. She notes that her most recent colonoscopy was in 2019 and according to her there is no significant pathology noted on the study. Patient did have a normal bowel movement yesterday and she has been passing flatus up to and including the time she has been in the [facility] emergency department. It is nowhere the mention that the patient also has a recent history of a DVT and pulmonary emboli. Patient says that she was treated at [facility] where she underwent extraction of the right lower extremity DVT and interventional radiology. She has since been placed on Coumadin for which she takes. Since arrival to the hospital at [facility] the patient has had labs and imaging which I independently reviewed. Patient did have a chest x-ray that did not show any evidence of pneumonia. A CT scan of the abdomen and pelvis showed the patient had thickening of the endometrial cavity with spiculation which was concerning for metastatic endometrial cancer. She was also noted to have prominent mesenteric and retroperitoneal lymphadenopathy. There is an ill-defined mesenteric mass which was concerning for peritoneal deposits. Patient was noted to have prominent ascites. There were numerous distended loops of small bowel which transitioned near a pelvic mass concerning for partial small bowel obstruction. The patient had a venous Doppler of the right lower extremity which showed occlusive thrombus extending from the right common femoral vein through the calf vessels. This thrombus also involve the greater saphenous vein. The patient had a arterial duplex of the right lower extremity that showed biphasic waveforms without any hemodynamically significant stenosis noted in this extremity. Labs include a CBC her white blood cell count was normal. Hemoglobin and hematocrit were 10.6 and 33.4. Platelet count was normal. Her INR is noted to be 2.1. Chemistry profile shows sodium is 135 with a normal potassium and normal creatinine. BUN was slightly elevated at 36. There is no significant elevation of patient's LFTs or lipase. An EKG showed normal sinus rhythm without any changes indicative of acute ischemia. Since arrival to the emergency department the patient has been initiated on a heparin drip secondary to the right lower extremity DVT noted. At the time of my interview the patient was resting comfortably in bed and she was in no distress. Concerning past medical history the patient has a history of colon cancer, uterine cancer, right lower extremity deep vein thrombosis, pulmonary emboli, and hypertension Concerning past surgical history the patient has undergone a partial colon resection, cholecystectomy, and tubal ligation Allergies Allergy/AdvReac Type Severity Reaction Status Date / Time No Known Drug Allergies Allergy Unknown . Verified 09/30/22 17:38 Home Medications Medication Instructions Recorded Confirmed Type acetaminophen 500 mg tablet 500 - 1,000 mg PO Q6H PRN Pain 09/30/22 09/30/22 History (Tylenol Extra Strength) hydrochlorothiazide 25 mg tablet 25 mg PO DAILY PRN swelling in legs 09/30/22 09/30/22 History metoprolol succinate 50 mg 50 mg PO DAILY 09/30/22 09/30/22 History tablet,extended release 24 hr oxycodone-acetaminophen 5 mg-325 1 tab PO Q6 PRN Pain 09/30/22 09/30/22 History mg tablet pantoprazole 40 mg tablet,delayed 40 mg PO QAM 09/30/22 09/30/22 History release promethazine 12.5 mg tablet 12.6 mg PO Q6 PRN Nausea And 09/30/22 09/30/22 History Vomiting warfarin 2.5 mg tablet 2.5 mg PO UD 09/30/22 09/30/22 History Patient History Social History Smoking Status: Never smoker Preferred Language: Russian Feels Safe at Home: Yes Review of Systems Constitutional: no fever and no chills Ear, Nose, Mouth, Throat: no hearing loss Respiratory: no cough and no dyspnea Cardiovascular: no chest pain Gastrointestinal: as per Subjective / HPI Genitourinary: no dysuria Musculoskeletal: no back pain Integumentary: no rash Neurologic: no localized weakness Physical Exam Constitutional: WD/WN, vitals as above Eyes: no conjunctival abnormality ENMT: Ears: no hearing impairment and no external ear abnormality Mouth: no oropharynx abnormality Neck: trachea midline Respiratory: normal respiratory effort, lungs clear to auscultation Cardiovascular: Rate/Rhythm: regular rate and regular rhythm Gastrointestinal (Abdomen): Abdomen is soft, nonrigid, nondistended. Bowel sounds are present. Patient had a well-healed midline incision from previous laparotomy. There is no pain with palpation. There is no rebound tenderness or guarding. Musculoskeletal: The patient was noted to have marked swelling of her right lower extremity compared to the left lower extremity extending from the ankle all the way to the right groin. Neurologic: moves all extremities Psychiatric: A+Ox3, euthymic affect Results & Data Vital Signs (Past 12 Hours) Vital Signs Temp Pulse Pulse Resp BP BP Pulse Ox 09/30/22 19:07 92 H 20 119/70 96 09/30/22 18:40 90 20 96 09/30/22 18:30 90 21 97 09/30/22 18:26 90 18 97 09/30/22 16:30 86 17 96 09/30/22 16:20 86 22 95 09/30/22 16:20 156/99 H 09/30/22 16:21 85 09/30/22 16:01 88 17 156/89 H 95 09/30/22 15:13 36.4 C L 92 H 20 136/79 96 O2 Del Method 09/30/22 19:07 Room Air 09/30/22 18:40 09/30/22 18:30 09/30/22 18:26 09/30/22 16:30 09/30/22 16:20 09/30/22 16:20 09/30/22 16:21 09/30/22 16:01 Room Air 09/30/22 15:13 Room Air PG Care Time/CCT Total # of Minutes Spent Total Time Spent with Patient: Total time spent is greater than 50% in coordination of care (as documented) at patient's floor/unit and/or counseling patient: Coding Level of Care Code 77755 INT INP/OBS CARE 3/75MIN Diagnoses Partial small bowel obstruction K56.600
[2022-09-30] MEDS: HEPARIN SODIUM/DEXTROSE 25,000 UNITS/500 ML BAG IV SCH (20:22)
[2022-09-30 20:45] LABS: Partial Thromboplastin Ratio 1.3; Partial Thromboplastin Time 35.6 Seconds (21.0-31.0)
[2022-09-30] MEDS: LACTATED RINGER'S 1,000 ML IV SCH (21:32)
[2022-09-30 21:52] LABS: Appearance Urine Clear (Clear); Bacteria Urine Automated 3+ (Negative); Bilirubin Urine Negative (Negative); Blood Urine 1+ (Negative); Color Urine Dark Yellow; Epithelial Cell Urine Auto 20-30 /lpf (0-5); Glucose Urine UA Negative (Negative); Ketones Urine Trace (Negative); Leukocyte Esterase Urine Trace (Negative); Nitrite Urine Positive (Negative); Protein Urine 1+ (Negative); Specific Gravity Urine > 1.045 (1.000-1.030); Urobilinogen Urine Negative (Negative); WBC Urine Automated >30 /hpf (0-5); pH Urine 5.5 (4.5-7.5)
[2022-10-01 02:59] LABS: Partial Thromboplastin Ratio 4.2
[2022-10-01 03:02] LABS: Partial Thromboplastin Time 119.2 Seconds (21.0-31.0)
[2022-10-01] MEDS: ACETAMINOPHEN 1,000 MG/100 ML VIAL IV PRN ×2 (03:16→14:18)
[2022-10-01 03:23] LABS: Calcium 8.6 mg/dl (8.6-10.3); Creatinine Clr Calc Pharmacy 66.9 ml/min; Est GFR (African American) 78.8; Magnesium 1.5 mg/dl (1.7-2.4); Potassium 3.9 mmol/L (3.5-5.1)
[2022-10-01 03:24] LABS: Albumin Globulin Ratio 0.9 (0.9-2); Albumin Level 2.9 gm/dl (3.4-5.0); Basophils # (auto) 0.01 K/uL (0-0.2); Basophils % (auto) 0.1 %; Bilirubin,Total 0.3 mg/dl (0.2-1.0); Eosinophils # (auto) 0.06 K/uL (0-0.50); Eosinophils % (auto) 0.8 %; Globulin 3.1 gm/dl (2.5-4.0); Hematocrit (blood only) 32.5 % (37.0-47.0); Hemoglobin 10.6 g/dl (12.0-16.0); Immature Granulocytes # (auto) 0.02 K/uL (0.01-0.20); Immature Granulocytes % (auto) 0.3 %; Lymphocytes # (auto) 1.72 K/uL (1.2-3.4); Lymphocytes % (auto) 22.4 %; Mean Corpuscular Hemoglobin 24.9 pg (25.0-34.0); Mean Corpuscular Hgb Conc 32.6 g/dL (32.0-36.0); Mean Corpuscular Volume 76.5 fL (80.0-100.0); Mean Platelet Volume 8.8 fL (9.4-12.4); Monocytes # (auto) 0.81 K/uL (0.11-0.59); Monocytes % (auto) 10.6 %; Neutrophils # (auto) 5.05 K/uL (1.40-6.50); Neutrophils % (auto) 65.8 %; Platelet Count 406 K/uL (130-400); RDW Standard Deviation 50.1 fL (36.4-46.3); Red Blood Count 4.25 M/uL (4.20-5.40); White Blood Count 7.67 K/ul (4.8-10.8)
--- NOTE | 2022-10-01 06:44 | XRay Report ---
SINGLE VIEW CHEST CLINICAL HISTORY: Generalized abdominal pain. FINDINGS: An AP, portable, upright chest radiograph is obtained. No prior studies are available for c omparison at the time of dictation. The cardiomediastinal silhouette is unremarkable noting atheroscl erotic calcification of the thoracic aorta. The lungs and pleural spaces are clear. No pneumothorax i s seen. The skeletal structures are osteopenic. The bony thorax is grossly intact. Excreted IV contra st is seen in the renal collecting systems. IMPRESSION: No active disease in the chest. ACT 112: Negative or not required by law. Electronically signed by: Juan Seo M.D. 10/01/2022 6:42 AM
--- NOTE | 2022-10-01 06:56 | Surgery Progress Note ---
Date of Service October 01, 2022 Assessment & Plan (1) Partial small bowel obstruction: Plan: Patient states that her right leg is what is really bothering her and brought her to the hospital She has extensive DVT in the right leg and is now on IV heparin I do not know if the patient would be a candidate for thrombolytic therapy-this would likely require tertiary care center She likely has metastatic endometrial cancer, with malignant ascites and carcinomatosis She has been seen in the past by oncology at [facility]-apparently they told her they cannot operate as she has had too much radiation injury Her ascites could be causing some abdominal pain and dysmotility I would try her on clear liquids and advance her diet as tolerated We have no plan on any operation in this hospital-she would need to be transferred to [place] if this were necessary Admission and Anticipated Discharge Date Admission Date: September 30, 2022 Subjective Patient is awake and alert in no distress She said her right leg bothers her and she has some crampy abdominal pain Review of Systems Review of Systems: All systems reviewed & are unremarkable except as noted in HPI & below Physical Exam Physical Exam: Patient in no distress Her abdomen is soft she has minimal tenderness Constitutional: well developed; no acute distress Eyes: + anicteric sclerae Respiratory: normal respiratory effort; no respiratory distress Cardiovascular: Rate/Rhythm: regular rate Gastrointestinal (Abdomen): Inspection/Auscultation: abdomen not distended See above Musculoskeletal: Head/Neck/Chest: head atraumatic Skin: no rashes, warm and dry Neurologic: awake Psychiatric: Orientation: alert Results & Data Vital Signs (Past 12 Hours) Vital Signs Temp Pulse Pulse Resp BP Pulse Ox Pulse Ox 10/01/22 03:53 36.6 C 83 18 112/69 96 09/30/22 23:17 09/30/22 23:17 93 H 09/30/22 23:17 36.7 C 88 16 121/74 99 09/30/22 23:17 09/30/22 23:17 99 09/30/22 23:37 36.7 C 88 16 121/74 99 09/30/22 22:31 09/30/22 22:23 93 H 20 126/70 95 09/30/22 20:20 93 H 09/30/22 20:09 101 H 20 140/85 96 09/30/22 19:07 92 H 20 119/70 96 O2 Del Method O2 Del Method 10/01/22 03:53 Room Air 09/30/22 23:17 Room Air 09/30/22 23:17 09/30/22 23:17 Room Air 09/30/22 23:17 Room Air 09/30/22 23:17 Room Air 09/30/22 23:37 Room Air 09/30/22 22:31 Room Air 09/30/22 22:23 Room Air 09/30/22 20:20 09/30/22 20:09 Room Air 09/30/22 19:07 Room Air PG Care Time/CCT Total # of Minutes Spent Total Time Spent with Patient: Total time spent is greater than 50% in coordination of care (as documented) at patient's floor/unit and/or counseling patient: Coding Level of Care Code 82450 SUB INP/OBS CARE 04/29MIN Diagnoses Partial small bowel obstruction K56.600
[2022-10-01] MEDS: MAGNESIUM SULFATE / D5W 1 GM/100 ML BAG IV SCH ×2 (08:23→11:31)
[2022-10-01] MEDS ORDERED: METOPROLOL SUCC 50MG EXT REL TAB PO SCH (09:00)
[2022-10-01] MEDS: SENNOSIDES 8.8 MG/5 ML UDC PO SCH ×2 (10:28→20:23)
[2022-10-01] MEDS: LACTATED RINGER'S 1,000 ML IV SCH (10:30)
[2022-10-01] MEDS ORDERED: PANTOprazole 40 MG in SYRINGE 0 ML IV SCH (11:00)
[2022-10-01 11:14] LABS: Partial Thromboplastin Ratio 2.3
[2022-10-01 11:20] LABS: Partial Thromboplastin Time 64.3 Seconds (21.0-31.0)
--- NOTE | 2022-10-01 14:10 | Hospitalist Progress Note ---
Date of Service October 01, 2022 Assessment & Plan (1) DVT (deep venous thrombosis): Plan: Found to have a recurrent, extensive DVT from the right common femoral vein t hrough the calf vessels with extension into the greater saphenous vein. Currently stable. Arterial duplex in the RLE was negative for hemodynamically significant stenosis. Patient was previously on Eliquis and Warfarin and had a thrombectomy for RLE DVT at [facility] on 09/15. Likely secondary to lymphadenopathy for likely recurrent and metastatic endometrial carcinoma. For now we can treat her acute issues here, but could consider eventual transfer to [facility] for expedited biopsies PT/INR: aPtt: -On heparin drip -Will likely need to be transferred to [facility] prior to discharge or transfer (2) Partial small bowel obstruction: Plan: CT showed: "Partial small bowel obstruction with numerous distended loops of sm all bowel which appear to transition sagittally to underdistended bowel distal to the pelvic mass." Currently comfortable, last BM was yesterday but is still passing gas -Was evaluated by General Surgery in the ED, recommends conservative treatment for now -Clear liquids, progressing as patient is comfortable. (3) Endometrial mass: Plan: Patient with known masses of the endometrium with Prominent lymph nodes are seen in the mesentery and retroperitoneum and there are ill-defined mesenteric mass is concerning for peritoneal deposits Patient also noted to have prominent ascites, likely due to her known cancer and vein compression, could consider IR consult for drainage but would be difficult due to current anticoagulation for DVT -Will need biopsies at [facility] as discussed above (4) HTN (hypertension): Plan: Stable -Hold hydrochlorothiazide -Will continue PO metoprolol to prevent rebound tachycardia Plan DVT: Heparin drip FEN: Clear liquids DNR/DNI Dispo: PCU Admission and Anticipated Discharge Date Admission Date: September 30, 2022 Supervising Physician Co-Signing Physician Notes Medical Student Supervision Note: I was personally present during medical student patient encounter and independently interviewed and examined the patient and verified the oshea history and physical, reviewed labs and image studies, discussed the case with Lashon Saeed and agree with the findings and care plan. 77y/o F with uterine cancer with mets and recent right leg dvt s/p thrombectomy here with worsening right leg swelling and pain and abdominal discomfort. DVT - Noted to have acute extensive right leg DVT on doppler. started heparin drip. -considering that patient had recent thrombectomy and has iliac vein compression on CT scan - she needs definitive management. -[facility] has accepted patient for transfer. PSBO - In setting of uterine ca with mets. CT abdomen showed PSBO and multiple lymphadenopathy with prominent ascites -Kept NPO and IVF. -Evaluated by surgery- reviewed need for [facility] transfer in setting of met astatic cancer. Subjective No acute events overnight. Pt is feeling pain free today, secondary to the acetamiophen drip. She does not endorse abdominal pain or leg pain. She reports that she has not had a bowel movement but has passed gas and is hungry. She is on clear fluids. She denies any shortness of breath or chest pain. Review of Systems Respiratory: Denied cough or shortness of breath. Cardiovascular: Additional Comments: Denied chest pain, palpitations Gastrointestinal: Denied nausea, vomiting, diarrhea, abdominal pain. Physical Exam Constitutional: Alert and oriented x3 in hopsital bed Neck: Respiratory: CTA, no increased work of breathing Cardiovascular: Normal rate and regular rhythmn. S1 S2, no r/m/g on exam. Radial pulses equal b/l. Gastrointestinal (Abdomen): Nondistended, nontender, hyperoactive bowel sounds. Musculoskeletal: Could move all extremeties independently. Right leg edema. Right leg noticibly larger than left. Skin was erythematous towards the groin. Was not warm to the touch. Was not tender. Mild edema on the left leg. Skin: Warm dry, no apparent rashed. No weeping in the right leg. Psychiatric: Appropriate mood and affect. Lymphatic: No lymphadenopathy in the neck and cervical region. Results & Data Results & Data Vital Signs (Past 12 Hours) Vital Signs Temp Pulse Resp BP Pulse Ox O2 Del Method 10/01/22 12:00 36.4 C L 85 18 135/81 98 Room Air 10/01/22 08:01 36.4 C L 91 H 21 144/83 H 96 Room Air 10/01/22 03:53 36.6 C 83 18 112/69 96 Room Air Laboratory Results 10/01/22 02:20 10/01/22 02:20 Diagnostic Findings Chest X-Ray 09/30/22 15:20 SINGLE VIEW CHEST CLINICAL HISTORY: Generalized abdominal pain. FINDINGS: An AP, portable, upright chest radiograph is obtained. No prior studies are available for comparison at the time of dictation. The cardiomediastinal silhouette is unremarkable noting atherosclerotic calcification of the thoracic aorta. The lungs and pleural spaces are clear. No pneumothorax is seen. The skeletal structures are osteopenic. The bony thorax is grossly intact. Excreted IV contrast is seen in the renal collecting systems. IMPRESSION: No active disease in the chest. ACT 112: Negative or not required by law. Electronically signed by: Juan Seo M.D. 10/01/2022 6:42 AM Abdomen/Pelvis CT 09/30/22 16:19 CT abd pelvis IV con only CLINICAL HISTORY: llq abd pain and swelling in rle TECHNIQUE: Helical axial images of the abdomen and pelvis were obtained and displayed. Automated dose lowering techniques and/or adjustment according to patient size were utilized for this exam. This exam was performed with intravenous contrast. CT DOSE: 1380.75 mGy.cm COMPARISON: None available at the time of this dictation. FINDINGS: Lower chest: No acute abnormality. Liver: Unremarkable. No focal lesions are seen. Gallbladder and biliary tree: Patient is status post cholecystectomy. No intra- or extrahepatic biliary ductal dilation. Pancreas: Unremarkable, no focal lesions. Spleen: Unremarkable. Adrenals: Unremarkable. Kidneys and ureters: Unremarkable. Bladder: Unremarkable. Reproductive organs: Surgical clips are seen about the uterus. There is marked thickening of the endometrium for a postmenopausal patient with the appearance of spiculated margins. Bowel: Numerous gas-distended loops of small bowel measure up to 35 mm in diameter. Under distended distal bowel is seen. There is a gradual transition to under distended bowel which appears to center around the endometrial mass in the pelvis. Postsurgical changes of partial colectomy are seen with a relatively small amount of stool. Lymph nodes Retroperitoneal: There is a 13 mm right retroperitoneal lymph node. Additional smaller nodes are seen. Pelvic: Unremarkable. Mesenteric: Subcentimeter lymph nodes are noted. Peritoneum: Ill-defined mesenteric nodules are seen for example in the anterior pelvis measuring approximately 16 mm in diameter. Moderate ascites is seen. Vessels: There is questionable narrowing of the right iliac vein at the level of the pelvis. The distal vein appears distended. Aortic calcifications are seen and there is a tiny infrarenal aneurysm measuring 20 mm. Abdominal wall: Prominent fat stranding and swelling is seen most prominently in the right lower extremity. Bones: Degenerative changes in the visualized spine. IMPRESSION: 1. There is marked thickening of the endometrial cavity with spiculation concerning for metastatic endometrial carcinoma. Prominent lymph nodes are seen in the mesentery and retroperitoneum and there are ill-defined mesenteric mass is concerning for peritoneal deposits. Prominent ascites is seen. 2. Partial small bowel obstruction with numerous distended loops of small bowel which appear to transition sagittally to underdistended bowel distal to the pelvic mass. 3. Additional findings as above. ACT 112: Negative or not required by law. Electronically signed by: Cristi Pastrana M.D. 09/30/2022 7:25 PM Venous Doppler Study 09/30/22 16:19 US venous doppler LE RT CLINICAL HISTORY: swelling rle TECHNIQUE: Right lower extremity real-time compression venous ultrasound with Color Doppler imaging. Utilizing real-time ultrasonic imaging multiple real time high-resolution ultrasonic images with compression and noncompression maneuvers of the deep venous system in addition to color doppler imaging were performed from the common femoral vein through the proximal calf veins. COMPARISON: None available at the time of this dictation. FINDINGS/IMPRESSION: Occlusive thrombus extends from the right common femoral vein through the calf vessels. There is also extension into the greater saphenous vein. ACT 112: Negative or not required by law. Electronically signed by: Cristi Pastrana M.D. 09/30/2022 5:34 PM Duplex Scan Lower Extremity Artery 09/30/22 16:24 US arterial duplex LE RT CLINICAL HISTORY: rle swelling TECHNIQUE: Real-time grayscale and color and spectral Doppler ultrasound imaging of the right lower extremity arteries was performed. Measurements calculated based on NASCET criteria. COMPARISON: None available at the time of this dictation. FINDINGS: Biphasic waveforms are seen throughout the right lower extremity without elevated velocities. IMPRESSION: Biphasic waveforms without hemodynamically significant stenosis. ACT 112: Negative or not required by law. Electronically signed by: Cristi Pastrana M.D. 09/30/2022 5:48 PM
[2022-10-01] MEDS: HEPARIN SODIUM/DEXTROSE 25,000 UNITS/500 ML BAG IV SCH (18:29)
--- NOTE | 2022-10-02 06:27 | Consultation ---
Date of Consultation October 02, 2022 Assessment & Plan (1) Endometrial mass: Record review patient has an apparent metastatic malignancy which perhaps is more likely her relapsed cervical cancer though her colon cancer is more recent. Appropriate plans were made for transfer and she has been sent to [facility] where her original treatment for cervical cancer had been delivered. Plan Patient has been appropriately transferred to a quaternary center. We will be happy to help evaluate and manage her locally if it becomes appropriate after her treatment there. History of Present Illness Reason for Consultation: History of both cervical and colon cancer presenting with extensive right leg DVT and signs of widespread metastatic malignancy Attending Physician: Mellissa Zuniga MD History of Present Illness Patient was transferred to [facility] prior to oncology consult being completed Allergies Allergy/AdvReac Type Severity Reaction Status Date / Time No Known Drug Allergies Allergy Unknown . Verified 09/30/22 17:38 Home Medications Medication Instructions Recorded Confirmed Type acetaminophen 500 mg tablet 500 - 1,000 mg PO Q6H PRN Pain 09/30/22 09/30/22 History (Tylenol Extra Strength) hydrochlorothiazide 25 mg tablet 25 mg PO DAILY PRN swelling in legs 09/30/22 09/30/22 History metoprolol succinate 50 mg 50 mg PO DAILY 09/30/22 09/30/22 History tablet,extended release 24 hr oxycodone-acetaminophen 5 mg-325 1 tab PO Q6 PRN Pain 09/30/22 09/30/22 History mg tablet pantoprazole 40 mg tablet,delayed 40 mg PO QAM 09/30/22 09/30/22 History release promethazine 12.5 mg tablet 12.6 mg PO Q6 PRN Nausea And 09/30/22 09/30/22 History Vomiting warfarin 2.5 mg tablet 2.5 mg PO UD 09/30/22 09/30/22 History Patient History Social History Smoking Status: Never smoker Second Hand Exposure: No; Do You Dip or Chew Tobacco: No; Hx Alcohol Use: No Hx Substance Use: No Preferred Language: Vietnamese Communication Ability: Effective Associate Doctor Required: No Beliefs That Will Affect Care: None Current Living Situation: Alone Feels Safe at Home: Yes Assistive Devices: Bedside Commode Results & Data Vital Signs (Past 12 Hours) Vital Signs Temp Pulse Resp BP Pulse Ox O2 Del Method 10/01/22 21:40 36.4 C L 84 18 138/80 95 10/01/22 21:37 36.4 C L 84 18 138/80 95 10/01/22 19:29 36.4 C L 84 18 138/80 95 Room Air PG Care Time/CCT Total # of Minutes Spent Total Time Spent with Patient: Total time spent is greater than 50% in coordination of care (as documented) at patient's floor/unit and/or counseling patient: Coding Level of Care Code None Diagnoses Endometrial mass N94.89
--- NOTE | 2022-10-02 14:44 | Discharge Summary ---
Date of Service October 02, 2022 Admission HPI Per Admitting Provider Korin is a 77 year old female with a PMH significant for cervical cancer S/P Chemo/radiation/brachytherapy at [facility] approximately 10 years ago, colon cancer S/P partial colectomy approximately 3 years ago, recently diagnosed PE's and RLE DVT on Warfarin, HTN, who presented to the [facility] ED on 09/30/22 via ALS for abdominal pain. In the ED vitals were stable. Labs were significant for an INR of 2.1, BUN of 36, sodium of 135 and calcium of 8.4. She was noted to have a significantly swollen/erythematous right LE. Venous doppler of the RLE was read as "Occlusive thrombus extends from the right common femoral vein through the calf vessels. There is also extension into the greater saphenous vein.". Arterial doppler of the RLE was read as "Biphasic waveforms without hemodynamically significant stenosis.". Ct of the abd/pelvis with IV con was read as "1.There is marked thickening of the endometrial cavity with spiculation concerning for metastatic endometrial carcinoma. Prominent lymph nodes are seen in the mesentery and retroperitoneum and there are ill-defined mesenteric mass is concerning for peritoneal deposits. Prominent ascites is seen. 2. Partial small bowel obstruction with numerous distended loops of small bowel which appear to transition sagittally to underdistended bowel distal to the pelvic mass. 3. Additional findings as above.". The patient was evaluated by general surgery for her partial SBO who recommended conservative at this time. Prior to admission the patient was started on a heparin drip. At time of the exam the exam the patient was lying in bed, tearful but in no acute distress with her Daughter (Mckenna) sitting bedside, history was obtained from both. Her daughter states that the patient was previously diagnosed with cervical cancer which invaded her uterine wall. She completed chemo/radiation/brachytherapy but they did not remove her uterus as the procedure would have been too complicated. They state that all of this treatment was down in [place] at [facility]. Approximately 3 years ago she was diagnosed with colon cancer and underwent partial colectomy at [facility]. She had been in her normal state of health until she had a PET scan completed on August 13 where her recurrently abdominal masses and lymphadenopathy were found. They have been coordinating with her [employer]/Onc provider for biopsy, which cannot be scheduled until November at [facility]. On 09/12 she presented to the [place] ED and was diagnosed with RLE DVT and PE's. She was initially started on a heparin drip and transitioned to eliquis on discharge. On 09/14 she returned to the [place] ED with worsening swelling, erythema, and pain of the RLE. She underwent IR thrombectomy of the recurrent DVT. Her daughter states they were told the large lymph nodes compressing the large veins in the RLE which is contributing to her DVT's. She was transitioned to Warfarin and discharged home on 09/24. She started to develop Nausea and non- bloody emesis on 09/27 where she presented back to the [place] ED where she was given IV fluids and zofran with improvement of symptoms. Her daughter brought her to our ED today for worsening abd pain and RLE swelling/erythema/pain. The patient and her daughter are aware of her recurrent cancer which is contributing to her partial SBO and recurrent DVT's. Her daughter is concerned that her mother is not going to be able to wait until November for biopsies of her known masses and enlarged lymph nodes. For now they are in agreement with initial treatment of her acute issues here with possible transfer to [place] if able for expedited biopsy and treatment. Her last bowel movement was yesterday, she is still passing gas today. The patient denies recent fever, chills, chest pain, SOB, hematemesis, dysuria, hematuria, melena, and recent trauma. We had a long discussion regarding code status, she wishes to be a DNR/DNI. Please refer to Dr. Rivera's attestation for any changes to the treatment plan. Admission Exam Per Admitting Provider Physical Exam: General:In no acute distress, stated age, chronically ill-appearing but non- toxic HEENT:Normocephalic, atraumatic, no scleral icterus, pupils around round, symmetrical, and reactive to light, moist mucus membranes, trachea midline, no thyromegaly Chest/Pulm:No respiratory distress, symmetrical chest expansion, clear breath sounds throughout Cardiac:RRR, no murmurs noted Abdomen:Negative for ascites and bruising, normoactive bowel sounds, soft, mildly tender in the upper abdominal ayers, no rebound tenderness Musculoskeletal:No acute trauma in the BL upper and lower extremities Extremities:Radial, dorsalis pedis, and posterior tibial pulses are palpable and intact in the LLE, RLE with significant (4+) edema with erythema and tenderness to palpation Skin:RLE is erythematous and not consistent with cellulitis Neuro:Alert and oriented to person, place, month, year, and president, no focal defects, no tremors noted Psych:anxious/tearful due to current medical issues, but pleasant and cooperative during the exam Principal Diagnosis Recurrent Deep Vein Thrombosis and partial Small Bowel Obstruction Discharge Exam Constitutional AOx3 afebrile Respiratory CTA, no labored breathing Cardiovascular Regular rhythm normal rate, S1 S2 no r/m/g, radial pulses equal b/l, Gastrointestinal (Abdomen) nd, nt, hyperactive bowel sounds Musculoskeletal Overtly edematous R leg. Can move all extremities independently. Skin no rashes on exam. warm, dry Psychiatric Appropriate mood and affect. Good clinical insight. Discharge Data Allergies Allergy/AdvReac Type Severity Reaction Status Date / Time No Known Drug Allergies Allergy Unknown . Verified 09/30/22 17:38 Consultations 09/30/22 19:42 ED Decision to Admit Stat 09/30/22 20:55 Consult General Surgery Routine 10/01/22 18:29 Consult Hematology Routine 10/01/22 19:13 Burn CD for patient Stat Ordered Studies 09/30/22 16:19 CT Abd and Pelvis [CT abd pelvis IV con only] Stat US venous doppler LE RT Stat 09/30/22 16:24 US arterial duplex LE RT Stat Hospital Course (1) DVT (deep venous thrombosis): Pt presented in the ER with 3 days of increased pain and swelling in right leg, warm to the touch. Patient was previously on Eliquis and Warfarin and had a thrombectomy for RLE DVT at [facility] on 09/15. Venous Doppler noted extensive DVT from the right common femoral vein through the calf vessels with extension into the greater saphenous vein. Arterial duplex in the RLE was negative for hemodynamically significant stenosis. Patient was started on a heparin drip. CT showed compression of the common iliac vein by lymph node, likely recurrent and metastatic endometrial carcinoma. Considering recurrence of extensive DVT and iliac vein stenosis from lymphadenopathy - Determined a need for transfer to [facility] for expedited biopsies and potential lymph node removal. (2) Partial small bowel obstruction: On admission, CT showed: "Partial small bowel obstruction with numerous distended loops of small bowel which appear to transition sagittally to underdistended bowel distal to the pelvic mass." Was evaluated by General Surgery and recommended for conservative treatment. Patient was on clear liquids and treated with Senna. (3) Endometrial mass: Patient with known masses of the endometrium with Prominent lymph nodes are seen in the mesentery and retroperitoneum and there are ill-defined mesenteric mass is concerning for peritoneal deposits Patient also noted to have prominent ascites, likely due to her known cancer and vein compression, could consider IR consult for drainage but would be difficult due to current anticoagulation for DVT (4) HTN (hypertension): Held hydrochlorothiazide and continued PO metoprolol to prevent rebound tachycardia Total Time Total Time Spent Total Time Spent (In Minutes): See attending attestation Discharge Plan Discharge Items Patient Disposition: Transfer Acute Care Hospital Reason For Visit: RIGHT LE DVT, SMALL BOWEL OBSTRUCTION Discharge Diagnosis: Recurrent DVT, metastatic disease, partial SBO Activity: Per Instructions section Non-emergency contact: Primary Care Provider Call non-emergency contact if: your symptoms worsen Follow-up/Referrals: John Covington [Primary Care Provider] - Diet: Regular Addtl Attending Provider Instructions: (1) DVT (deep venous thrombosis): Plan: Found to have a recurrent, extensive DVT from the right common femoral vein through the calf vessels with extension into the greater saphenous vein. Currently stable. Arterial duplex in the RLE was negative for hemodynamically significant stenosis. Patient was previously on Eliquis and Warfarin and had a thrombectomy for RLE DVT at [facility] on 09/15. Likely secondary to lymphadenopathy for likely recurrent and metastatic endometrial carcinoma. For now we can treat her acute issues here, but could consider eventual transfer to [facility] for expedited biopsies PT/INR: aPtt: -On heparin drip -Will likely need to be transferred to [facility] prior to discharge or transfer (2) Partial small bowel obstruction: Plan: CT showed: "Partial small bowel obstruction with numerous distended loops of small bowel which appear to transition sagittally to underdistended bowel distal to the pelvic mass." Currently comfortable, last BM was yesterday but is still passing gas -Was evaluated by General Surgery in the ED, recommends conservative treatment for now -Clear liquids, progressing as patient is comfortable. (3) Endometrial mass: Plan: Patient with known masses of the endometrium with Prominent lymph nodes are seen in the mesentery and retroperitoneum and there are ill-defined mesenteric mass is concerning for peritoneal deposits Patient also noted to have prominent ascites, likely due to her known cancer and vein compression, could consider IR consult for drainage but would be difficult due to current anticoagulation for DVT -Will need biopsies at [facility] as discussed above (4) HTN (hypertension): Plan: Stable -Hold hydrochlorothiazide -Will continue PO metoprolol to prevent rebound tachycardia Plan DVT: Heparin drip FEN: Clear liquids DNR/DNI Pending Studies at Discharge: No Stand-Alone Forms: [facility] Skilled Items Patient informed of condition?: Yes DNR: Yes Discharge Level of Care: Other Communicable Disease: No Discharge Prognosis: Improving Lines: Peripheral IV Urinary Catheter: No Medications and DC Order Prescriptions: Continued warfarin 2.5 mg tablet 2.5 mg PO UD Rx Instructions: per INR 2.6 yesterday metoprolol succinate 50 mg tablet extended release 24 hr 50 mg PO DAILY pantoprazole 40 mg tablet,delayed release (DR/EC) 40 mg PO QAM hydrochlorothiazide 25 mg tablet 25 mg PO DAILY PRN (Reason: swelling in legs) promethazine 12.5 mg tablet 12.6 mg PO Q6 PRN (Reason: Nausea And Vomiting) acetaminophen [Tylenol Extra Strength] 500 mg Tablet 500 - 1,000 mg PO Q6H PRN (Reason: Pain) Rx Instructions: doseage depends on last time having percocet oxycodone-acetaminophen 5-325 mg tablet 1 tab PO Q6 PRN (Reason: Pain) Discharge Orders: Discharge Order (Routine); Ordered 10/01/22 Ordered By: Danny Pacheco Admission Data Admit Date/Time: 09/30/22 20:10 Attending Provider: Mellissa Zuniga Admit Provider: Payton Rivera Primary Care Provider: John Covington Other Providers: Payton Rivera ; [place] Raya Jeanne Other Interventions: Discharge Summary Assessment (RN) Last Done: 10/01/22 21:40
== END 2022-10-01 22:07 | disposition short-term general hospital (02) | DRG 300 ==
LOC: ED 15:05 → INTOOBSV 20:10 → SUATTDRO 20:10 → 4W 20:10

== ENCOUNTER 2022-10-22 14:25 | Inpatient (IN) ==
--- NOTE | 2022-10-22 15:14 | Emergency Department Note ---
Impression & Plan CHI (closed head injury), Contusion of face, Contusion of knee, Acute UTI (urinary tract infection), Acute hyponatremia, Anasarca ED Provider Note ED Provider Note NAME: RAMA LAWTON AGE:77 SEX: Female : 1945 ARRIVES VIA: EMS INFORMANT: Patient ED PROVIDER(s): Tatiana Herrera DO CHIEF COMPLAINT: Fall, head injury HPI: This is a 77-year-old female who presents emergency department due to concern for fall and accompanying head injury. Patient was just coming home from rehab with her daughter. She got out of the daughter's vehicle and started using her walker and had to step up over a small 2 or 3 inch step onto the pavement. Daughter states she got 1 leg up over and then her knee gave out and she dropped onto that knee and down to her hands and knees. She went to try and lower herself and then abruptly fell striking her head and face on the pavement. Daughter states there is no loss of consciousness. Patient does use Lovenox daily. She does have a history of no malignancy as well as blood clots. She has chronic difficulty walking and significant edema secondary to these conditions. Patient complains of pain to the face where she struck her head/face as well as pain at the left knee which was the knee she fell onto. Daughter states no other change in mentation and she is at baseline right now. Daughter states she did take a dose of pain medication at time of discharge from the rehab facility. PAST MEDICAL HISTORY:See Below PAST SURGICAL HISTORY:See Below FAMILY HISTORY:See Below SOCIAL HISTORY:See Below HOME MEDICATIONS:See Below ALLERGIES:See Below VITALS:See Below PHYSICAL EXAMINATION: GENERAL: alert, well appearing, well nourished, no distress, non-toxic HEAD: nc/at, contusion noted to left forehead, nasal bridge, with small superficial laceration/abrasion noted to nasal bridge additionally NOSE: No epistaxis EYE EXAM: normal conjunctiva, PERRL and EOM's grossly intact OROPHARYNX: no exudate, no erythema, lips, buccal mucosa, and tongue normal and mucous membranes are moist NECK: supple, no nuchal rigidity, no adenopathy, non-tender, c collar in place LUNGS: Clear to auscultation. Normal chest wall mechanics, no w/r/r HEART: no murmurs, S1 normal and S2 normal CHEST WALL: Nontender with palpation, no crepitus, no step-off, no ecchymosis ABDOMEN: abdomen soft, non-tender, normo-active bowel sounds, no masses, no rebound or guarding. Edema noted laterally out over the flanks which daughter states is normal. No overlying ecchymosis. PELVIS: Stable to compression, nontender with palpation BACK: Back is symmetrical on inspection and there is no deformity, no midline tenderness, no CVA tenderness. SKIN: no rashes, petechiae, orbruising UPPER EXTREMITIES: upper extremities are grossly normal. FROM, nml pulses b/l. No evidence of trauma or deformity. LOWER EXTREMITIES: 3+ b/l pitting edema. Baseline range of motion and strength per daughter at bedside, evolving ecchymosis and abrasion noted at left knee and patient does report pain with flexion of the left knee, nml pulses b/l. NEURO EXAM: Normal sensorium, cranial nerves II-XII grossly intact, normal speech, no facial droop,nogross weakness of arms, no gross weakness of legs. Gross sensation intact. No ataxia. Vital Signs: reviewed and remarkable Differential Diagnosis: Dehydration, mechanical fall, syncope, medication ADR, electrolyte abnormality, MEDICAL DECISION MAKING: This is a 77-year-old female who presents emergency department after an accidental fall while going into her daughter's house. Patient was afebrile and vital signs stable, she was at cognitive baseline per the daughter's report upon my evaluation. She complained of pain at her knees as well as facial pain. Patient with obvious head/facial trauma. Labs are drawn and sent, IV established, EKG performed at bedside and interpreted by me as were x-rays of the patient's knees bilaterally and a chest x-ray, patient was monitored on telemetry. She was sent for additional CT imaging due to the trauma, her advanced age, as well as concurrent use of Lovenox. Patient noted to have a leukocytosis which is new compared to prior. This was discussed with the daughter and we pursued obtaining a urine specimen. This did reveal a UTI and she was given a dose of antibiotics. Patient also found to have worsening hyponatremia compared to prior. I called and discussed with the daughter that the fall today may have been multifactorial as well the patient does have chronic weakness and ambulatory dysfunction, she may have also been more weak or dizzy due to the addition of the pain medication as well as the concurrent UTI and her worsening hyponatremia. Due to overall concern is daughter intends to h ave her home however home health arrangements have not yet been made, I feel it is in the patient's best interest to be monitored as an inpatient for additional treatment. Daughter verbalized understanding and was in agreement with this plan. Consultation(s): 2010: Discussed with Dr. Dean. ER Treatment Provided: See below Diagnostics Interpreted By Me: -ECG: Normal sinus at 97, normal axis, normal intervals, no acute ST/T wave changes -Cardiac Monitoring: An order was placed for continuous cardiac monitoring. The monitor shows a rate of 96 with normal sinus rhythm. -Laboratory studies: As stated above and show below. -Imaging studies: X-ray Chest: A single view study of the chest was reviewed and was negative for cardiomegaly, focal infiltrate, effusion, pulmonary edema, or wide mediastinum. No evidence of rib fracture or pneumothorax Triage Nursing Note Reviewed Prior/Outside Records Reviewed Past Med/Surg History Social History Smoking Status: Never smoker Second Hand Exposure: No; Do You Dip or Chew Tobacco: No; Hx Alcohol Use: No Hx Substance Use: No Preferred Language: Guamanian Communication Ability: Effective Employment Appeals Examiner Required: No Beliefs That Will Affect Care: None Current Living Situation: Alone Feels Safe at Home: Yes Assistive Devices: Bedside Commode Allergies Allergies Allergy/AdvReac Type Severity Reaction Status Date / Time No Known Drug Allergies Allergy Unknown . Verified 09/30/22 17:38 Home Meds Home Medications Medication Instructions Recorded Confirmed acetaminophen 500 mg tablet 500 - 1,000 mg PO Q6H PRN Pain 09/30/22 10/22/22 (Tylenol Extra Strength) metoprolol succinate 50 mg 50 mg PO DAILY 09/30/22 10/22/22 tablet,extended release 24 hr pantoprazole 40 mg tablet,delayed 40 mg PO QAM 09/30/22 10/22/22 release enoxaparin 100 mg/mL subcutaneous 100 mg subcut BID 10/22/22 10/22/22 syringe granisetron HCl 1 mg tablet 1 mg PO Q12H PRN n/v 10/22/22 10/22/22 hydromorphone 2 mg tablet 2 mg PO Q3H PRN Pain 10/22/22 10/22/22 (Dilaudid) metoclopramide HCl 10 mg tablet 10 mg PO BID 10/22/22 10/22/22 (Reglan) simethicone 1 tab PO Q6H PRN Other 10/22/22 10/22/22 Results & Data (ED) Vital Signs Vital Signs - 24 hr 10/22/22 14:32 10/22/22 14:58 10/22/22 17:46 Temperature 36.7 C Temperature Source Oral Pulse Rate 99 H 98 H Pulse Rate [Apical] 97 H Pulse Rhythm [Apical] Regular Respiratory Rate 18 18 Respiratory Effort / Characteristics Non-Labored Spontaneous Non-Labored Spontaneous Respiratory Depth Normal Normal Respiratory Pattern Regular Regular Blood Pressure 136/89 Blood Pressure [Right Arm] 139/97 Blood Pressure Mean 104 Blood Pressure Mean [Right Arm] 111 Blood Pressure Position Lying Blood Pressure Position [Right Arm] Lying Pulse Oximetry 94 96 Oxygen Delivery Method Room Air Sepsis Recent Fever Within 48 Hours No Sepsis New/Unexplained Change in Mental Status No Sepsis Action Taken by Nursing No Action Required 10/22/22 18:50 10/22/22 19:31 10/22/22 21:08 Temperature Temperature Source Pulse Rate 104 H Pulse Rate [Apical] 104 H 105 H Pulse Rhythm [Apical] Regular Regular Respiratory Rate 18 18 Respiratory Effort / Characteristics Non-Labored Spontaneous Non-Labored Spontaneous Respiratory Depth Normal Normal Respiratory Pattern Regular Regular Blood Pressure Blood Pressure [Right Arm] 144/90 H 134/89 Blood Pressure Mean Blood Pressure Mean [Right Arm] 108 104 Blood Pressure Position Blood Pressure Position [Right Arm] Lying Pulse Oximetry 96 96 Oxygen Delivery Method Room Air Room Air Sepsis Recent Fever Within 48 Hours Sepsis New/Unexplained Change in Mental Status Sepsis Action Taken by Nursing 10/22/22 22:45 Temperature Temperature Source Pulse Rate 98 H Pulse Rate [Apical] Pulse Rhythm [Apical] Respiratory Rate Respiratory Effort / Characteristics Respiratory Depth Respiratory Pattern Blood Pressure Blood Pressure [Right Arm] Blood Pressure Mean Blood Pressure Mean [Right Arm] Blood Pressure Position Blood Pressure Position [Right Arm] Pulse Oximetry Oxygen Delivery Method Sepsis Recent Fever Within 48 Hours Sepsis New/Unexplained Change in Mental Status Sepsis Action Taken by Nursing Laboratory Data 10/22/22 15:16 10/22/22 15:16 Lab Results 10/22/22 10/22/22 10/22/22 Range/Units 15:16 15:16 18:08 WBC 19.13 H (4.8-10.8) K/ul RBC 4.33 (4.20-5.40) M/uL Hgb 10.7 L (12.0-16.0) g/dl Hct 33.5 L (37.0-47.0) % MCV 77.4 L (80.0-100.0) fL MCH 24.7 L (25.0-34.0) pg MCHC 31.9 L (32.0-36.0) g/dL RDW Std Deviation 50.7 H (36.4-46.3) fL RDW Coeff of Adam 18.4 H (11.5-14.5) % Plt Count 584 H (130-400) K/uL MPV 8.6 L (9.4-12.4) fL Immature Gran % (Auto) 0.8 % Neut % (Auto) 88.5 % Lymph % (Auto) 4.9 % [place] % (Auto) 5.5 % Eos % (Auto) 0.1 % Baso % (Auto) 0.2 % Neut # (Auto) 16.96 H (1.40-6.50) K/uL Lymph # (Auto) 0.93 L (1.2-3.4) K/uL [place] # (Auto) 1.05 H (0.11-0.59) K/uL Eos # (Auto) 0.01 (0-0.50) K/uL Baso # (Auto) 0.03 (0-0.2) K/uL Immature Gran # (Auto) 0.15 (0.01-0.20) K/uL Sodium 125 L (136-145) mmol/L Potassium 5.7 H (3.5-5.1) mmol/L Chloride 95 L (98-107) mmol/L Carbon Dioxide 22 (21-32) mmol/L Anion Gap 8 (3-11) BUN 49 H (6-23) mg/dl Creatinine 1.10 (0.6-1.2) mg/dl Est Cr Clr Drug Dosing 53.6 ml/min Est GFR ( Amer) 56.1 ml/min Est GFR (Non-Af Amer) 48.4 ml/min BUN/Creatinine Ratio 44.5 H (10-20) Glucose 123 H (70-99(Fasting)) mg/dl Calcium 8.5 L (8.6-10.3) mg/dl Total Bilirubin 0.4 (0.2-1.0) mg/dl AST 11 L (13-39) U/L ALT 6 L (7-52) U/L Alkaline Phosphatase 108 H (34-104) U/L Total Protein 5.7 L (6.0-8.3) gm/dl Albumin 2.6 L (3.4-5.0) gm/dl Globulin 3.1 (2.5-4.0) gm/dl Albumin/Globulin Ratio 0.8 L (0.9-2) Urine Color Dark Yellow Urine Appearance Turbid A (Clear) Urine pH 7.0 (4.5-7.5) Ur Specific [place] 1.022 (1.000-1.030) Urine Protein 1+ H (Negative) Urine Glucose (UA) Negative (Negative) Urine Ketones Trace H (Negative) Urine Blood 1+ H (Negative) Urine Nitrite Negative (Negative) Urine Bilirubin Negative (Negative) Urine Urobilinogen Negative (Negative) Ur Leukocyte Esterase 1+ H (Negative) Urine WBC (Auto) >30 H (0-5) /hpf Urine RBC (Auto) >30 H (0-4) /hpf U Hyaline Cast (Auto) 1-5 (0-5) /lpf U Epithel Cells (Auto) 0-5 (0-5) /lpf Urine Bacteria (Auto) 4+ H (Negative) Urine Yeast Not Reportable SARS-CoV-2 (PCR) (Negative) Influenza Type A (PCR) (Neg) Influenza Type B (PCR) (Neg) RSV (RT-PCR) (Neg) 10/22/22 Range/Units 19:42 WBC (4.8-10.8) K/ul RBC (4.20-5.40) M/uL Hgb (12.0-16.0) g/dl Hct (37.0-47.0) % MCV (80.0-100.0) fL MCH (25.0-34.0) pg MCHC (32.0-36.0) g/dL RDW Std Deviation (36.4-46.3) fL RDW Coeff of Adam (11.5-14.5) % Plt Count (130-400) K/uL MPV (9.4-12.4) fL Immature Gran % (Auto) % Neut % (Auto) % Lymph % (Auto) % [place] % (Auto) % Eos % (Auto) % Baso % (Auto) % Neut # (Auto) (1.40-6.50) K/uL Lymph # (Auto) (1.2-3.4) K/uL [place] # (Auto) (0.11-0.59) K/uL Eos # (Auto) (0-0.50) K/uL Baso # (Auto) (0-0.2) K/uL Immature Gran # (Auto) (0.01-0.20) K/uL Sodium (136-145) mmol/L Potassium (3.5-5.1) mmol/L Chloride (98-107) mmol/L Carbon Dioxide (21-32) mmol/L Anion Gap (3-11) BUN (6-23) mg/dl Creatinine (0.6-1.2) mg/dl Est Cr Clr Drug Dosing ml/min Est GFR ( Amer) ml/min Est GFR (Non-Af Amer) ml/min BUN/Creatinine Ratio (10-20) Glucose (70-99(Fasting)) mg/dl Calcium (8.6-10.3) mg/dl Total Bilirubin (0.2-1.0) mg/dl AST (13-39) U/L ALT (7-52) U/L Alkaline Phosphatase (34-104) U/L Total Protein (6.0-8.3) gm/dl Albumin (3.4-5.0) gm/dl Globulin (2.5-4.0) gm/dl Albumin/Globulin Ratio (0.9-2) Urine Color Urine Appearance (Clear) Urine pH (4.5-7.5) Ur Specific [place] (1.000-1.030) Urine Protein (Negative) Urine Glucose (UA) (Negative) Urine Ketones (Negative) Urine Blood (Negative) Urine Nitrite (Negative) Urine Bilirubin (Negative) Urine Urobilinogen (Negative) Ur Leukocyte Esterase (Negative) Urine WBC (Auto) (0-5) /hpf Urine RBC (Auto) (0-4) /hpf U Hyaline Cast (Auto) (0-5) /lpf U Epithel Cells (Auto) (0-5) /lpf Urine Bacteria (Auto) (Negative) Urine Yeast SARS-CoV-2 (PCR) NEGATIVE (Negative) Influenza Type A (PCR) Negative (Neg) Influenza Type B (PCR) Negative (Neg) RSV (RT-PCR) Negative (Neg) Administered Medications Albumin Human (Albumin 25%) 25 gm in 100 mls @ 50 mls/hr IV 2200 ONE Stop: 10/22/22 23:59 Last Admin: 10/22/22 21:54 Dose: 50 mls/hr Documented By: JULIO Discontinued Medications Enoxaparin Sodium (Enoxaparin 100 Mg/1ml Syr) 100 mg SQ NOW STA Stop: 10/22/22 21:50 Last Admin: 10/22/22 21:58 Dose: 100 mg Documented By: JULIO Acetaminophen (Ofirmev) 1,000 mg in 100 mls @ 400 mls/hr IV NOW STA Stop: 10/22/22 19:15 Last Infusion: 10/22/22 21:03 Dose: 0 mls/hr Documented By: Admin: 10/22/22 20:25 Dose: 400 mls/hr Documented By: JULIO Cefepime HCl (Maxipime) 2,000 mg in 20 mls @ 5 mls/min IV NOW STA; Protocol Stop: 10/22/22 19:05 Last Admin: 10/22/22 20:24 Dose: 5 mls/min Documented By: JULIO Imaging Data Radiologist's Impression: Cervical Spine CT 10/22/22 15:08 CT SCAN OF THE CERVICAL SPINE CLINICAL HISTORY: Trauma. COMPARISON STUDY: No priors. TECHNIQUE: CT scan of the cervical spine is performed from the skull base to the upper thoracic spine. Images are reviewed in the axial, sagittal, and coronal planes. IV contrast was not administered for this examination. A dose lowering technique was utilized adhering to the principles of ALARA. FINDINGS: Skeletal structures: The skeletal structures are osteopenic. C1 is fused with the occiput. There is partial bony fusion of C2 and C3. There is no evidence of fracture or subluxation involving the cervical spine. Vertebral body height is maintained. There is minimal anterolisthesis at C3-C4. Alignment is otherwise preserved. There is straightening of the cervical lordosis. Anterior osteophytes are seen throughout. The odontoid process and lateral masses are intact. The atlantoaxial articulation is preserved. The spinous processes appear intact. There is [id number] multilevel facet arthropathy. Intervertebral discs: There is mild multilevel disc space narrowing. Central canal: Grossly patent. Soft tissues: The prevertebral and paraspinous soft tissues are within normal limits. Calvarium: The visualized calvarium at the skull base appears intact. Brain parenchyma: Partially visualized brain parenchyma at the skull base is within normal limits. Sinuses and mastoids: The visualized paranasal sinuses are clear. The mastoid air cells are well pneumatized. Lung apices: Clear as visualized. IMPRESSION: 1. There is no evidence of cervical spine fracture or subluxation. 2. Osteopenia with developmental and degenerative change as above. ACT 112: Negative or not required by law. Electronically signed by: Juan Seo M.D. 10/22/2022 4:43 PM Chest X-Ray 10/22/22 15:08 SUPINE PORTABLE AP CHEST RADIOGRAPH CLINICAL HISTORY: trauma COMPARISON STUDY: Chest radiograph September 30, 2022. FINDINGS: There is no pneumothorax on supine exam. Minimal hazy right basilar opacity is noted. There may be a trace right pleural effusion. A hiatal hernia is noted. Cardiomediastinal silhouette is otherwise unremarkable on supine exam. IMPRESSION: 1. No pneumothorax identified on supine exam. 2. Hazy right basilar opacity. This could reflect a small right pleural effusion or minimal airspace opacity. ACT 112: Negative or not required by law. Electronically signed by: Ernesto Nguyen M.D. 10/22/2022 5:[address] 10/22/22 15:[address] WITHOUT CONTRAST CLINICAL HISTORY: trauma COMPARISON STUDY: None. TECHNIQUE: A maxillofacial CT was performed without IV contrast. Coronal and sagittal reformats were viewed. Automated exposure control was utilized for the study. A dose lowering technique was utilized adhering to the principles of ALARA. FINDINGS: There may be a nasal contusion. No acute facial bone fracture is identified. Globes are intact. No retrobulbar hematoma. Alignment of the temporomandibular joints is anatomic. Severe degenerative changes within the upper cervical spine are noted. Cervical spine CT will be reported separately. IMPRESSION: No acute facial fracture. ACT 112: Negative or not required by law. Electronically signed by: Ernesto Nguyen M.D. 10/22/2022 4:[address] 10/22/22 15:08 CT OF THE HEAD WITHOUT CONTRAST CLINICAL HISTORY: trauma COMPARISON STUDY: No previous studies for comparison. CT DOSE: 1212.84 mGy.cm TECHNIQUE: Helical axial images of the head were obtained without IV contrast. Automated exposure control was utilized for the study. A dose lowering technique was utilized adhering to the principles of ALARA. FINDINGS: No acute intracranial hemorrhage, midline shift or mass effect is present. A 4 mm calcific density within the left cerebellar hemisphere is noted. This is not acute. There is bilateral basilar ganglia calcification. The ventricular system is unremarkable. The basal cisterns are patent. No extra- axial collections are present. There are no findings to suggest acute dural s inus thrombosis or acute territorial infarct. No significant calvarial abnormalities are present. Visualized portions of the sinuses and mastoid air cells are clear. IMPRESSION: 1. No acute intracranial findings. 2. No acute calvarial fracture. ACT 112: Negative or not required by law. Electronically signed by: Ernesto Nguyen M.D. 10/22/2022 4:33 PM Knee X-Ray 10/22/22 15:08 XR knee LT 1 or 2V routine CLINICAL HISTORY: trauma COMPARISON: None FINDINGS: No definite acute fracture is identified. Note is made of a vertical lucency through the patella on AP projection. There is no joint effusion. A 1.6 cm calcific density medial to the distal tibial plateau is chronic. Severe medial compartment joint space narrowing is noted with osteophytosis. There are several suspected joint bodies. Soft tissue swelling is noted. IMPRESSION: 1. Vertical lucency through the patella on AP projection. This is likely art ifactual however an acute nondisplaced fracture could appear similar. 2. Severe left knee osteoarthritis with several suspected joint bodies. 3. Left knee soft tissue swelling. ACT 112: Negative or not required by law. Electronically signed by: Ernesto Nguyen M.D. 10/22/2022 4:39 PM Knee X-Ray 10/22/22 15:08 XR knee RT 1 or 2V routine CLINICAL HISTORY: trauma COMPARISON: None FINDINGS: No definite acute fracture is identified. There is no joint effusion. Apparent lucency within the patella on AP projection is noted. This appears to have sclerotic margins. Severe medial compartment joint space narrowing is noted. There is knee soft tissue swelling. Patellofemoral compartment osteophytosis also present. IMPRESSION: 1. No definite acute fracture. Apparent lucency within the patella on AP projection. This is likely artifactual or chronic. An acute fracture is considered less likely although could be correlated with point tenderness. 2. Severe medial compartment osteoarthritis of the right knee. 3. Right knee soft tissue swelling. ACT 112: Negative or not required by law. Electronically signed by: Ernesto Nguyen M.D. 10/22/2022 5:01 PM Discharge Plan Visit Data Chief Complaint: Fall ED Provider: Tatiana Herrera Discharge Problem: CHI (closed head injury), Contusion of face, Contusion of knee, Acute UTI (urinary tract infection), Acute hyponatremia, Anasarca Forms Stand Alone Forms: [facility] Prescriptions Prescriptions: No Action hydromorphone [Dilaudid] 2 mg Tablet 2 mg PO Q3H PRN (Reason: Pain) metoclopramide HCl [Reglan] 10 mg Tablet 10 mg PO BID Rx Instructions: before meals and at bedtime enoxaparin 100 mg/mL syringe 100 mg subcut BID Rx Instructions: due for dose tonight granisetron HCl [Kytril] 1 mg Tablet 1 mg PO Q12H PRN (Reason: n/v) simethicone 1 tab PO Q6H PRN (Reason: Other) metoprolol succinate 50 mg tablet extended release 24 hr 50 mg PO DAILY pantoprazole 40 mg tablet,delayed release (DR/EC) 40 mg PO QAM acetaminophen [Tylenol Extra Strength] 500 mg Tablet 500 - 1,000 mg PO Q6H PRN (Reason: Pain) Rx Instructions: doseage depends on last time having percocet Referrals Referrals: John Covington [Primary Care Provider] -
[2022-10-22 15:40] LABS: Basophils # (auto) 0.03 K/uL (0-0.2); Basophils % (auto) 0.2 %; Eosinophils # (auto) 0.01 K/uL (0-0.50); Eosinophils % (auto) 0.1 %; Hematocrit (blood only) 33.5 % (37.0-47.0); Hemoglobin 10.7 g/dl (12.0-16.0); Immature Granulocytes # (auto) 0.15 K/uL (0.01-0.20); Immature Granulocytes % (auto) 0.8 %; Lymphocytes # (auto) 0.93 K/uL (1.2-3.4); Lymphocytes % (auto) 4.9 %; Mean Corpuscular Hemoglobin 24.7 pg (25.0-34.0); Mean Corpuscular Hgb Conc 31.9 g/dL (32.0-36.0); Mean Corpuscular Volume 77.4 fL (80.0-100.0); Mean Platelet Volume 8.6 fL (9.4-12.4); Monocytes # (auto) 1.05 K/uL (0.11-0.59); Monocytes % (auto) 5.5 %; Neutrophils # (auto) 16.96 K/uL (1.40-6.50); Neutrophils % (auto) 88.5 %; Platelet Count 584 K/uL (130-400); RDW Coefficient of Variation 18.4 % (11.5-14.5); RDW Standard Deviation 50.7 fL (36.4-46.3); Red Blood Count 4.33 M/uL (4.20-5.40); White Blood Count 19.13 K/ul (4.8-10.8)
[2022-10-22 15:54] LABS: Albumin Globulin Ratio 0.8 (0.9-2); Albumin Level 2.6 gm/dl (3.4-5.0); BUN Creatinine Ratio 44.5 (10-20); Bilirubin,Total 0.4 mg/dl (0.2-1.0); Calcium 8.5 mg/dl (8.6-10.3); Creatinine Clr Calc Pharmacy 53.6 ml/min; Est GFR (African American) 56.1 ml/min; Est GFR (Non-African American) 48.4 ml/min; Globulin 3.1 gm/dl (2.5-4.0); Potassium 5.7 mmol/L (3.5-5.1); Total Protein 5.7 gm/dl (6.0-8.3)
--- NOTE | 2022-10-22 16:35 | CT Scan Report ---
CT OF THE HEAD WITHOUT CONTRAST CLINICAL HISTORY: trauma COMPARISON STUDY: No previous studies for comparison. CT DOSE: 1212.84 mGy.cm TECHNIQUE: Helical axial images of the head were obtained without IV contrast. Automated exposure con trol was utilized for the study. A dose lowering technique was utilized adhering to the principles o f ALARA. FINDINGS: No acute intracranial hemorrhage, midline shift or mass effect is present. A 4 mm calcific density within the left cerebellar hemisphere is noted. This is not acute. There is bilateral basilar ganglia calcification. The ventricular system is unremarkable. The basal cisterns are patent. No ext ra-axial collections are present. There are no findings to suggest acute dural sinus thrombosis or ac tesfaye territorial infarct. No significant calvarial abnormalities are present. Visualized portions of t he sinuses and mastoid air cells are clear. IMPRESSION: 1. No acute intracranial findings. 2. No acute calvarial fracture. ACT 112: Negative or not required by law. Electronically signed by: Ernesto Nguyen M.D. 10/22/2022 4:33 PM
--- NOTE | 2022-10-22 16:39 | CT Scan Report ---
MAXILLOFACIAL CT WITHOUT CONTRAST CLINICAL HISTORY: trauma COMPARISON STUDY: None. TECHNIQUE: A maxillofacial CT was performed without IV contrast. Coronal and sagittal reformats were viewed. Automated exposure control was utilized for the study. A dose lowering technique was utiliz ed adhering to the principles of ALARA. FINDINGS: There may be a nasal contusion. No acute facial bone fracture is identified. Globes are int act. No retrobulbar hematoma. Alignment of the temporomandibular joints is anatomic. Severe degenerat guru changes within the upper cervical spine are noted. Cervical spine CT will be reported separately. IMPRESSION: No acute facial fracture. ACT 112: Negative or not required by law. Electronically signed by: Ernesto Nguyen M.D. 10/22/2022 4:36 PM
--- NOTE | 2022-10-22 16:40 | XRay Report ---
XR knee LT 1 or 2V routine CLINICAL HISTORY: trauma COMPARISON: None FINDINGS: No definite acute fracture is identified. Note is made of a vertical lucency through the p atella on AP projection. There is no joint effusion. A 1.6 cm calcific density medial to the distal t ibial plateau is chronic. Severe medial compartment joint space narrowing is noted with osteophytosis . There are several suspected joint bodies. Soft tissue swelling is noted. IMPRESSION: 1. Vertical lucency through the patella on AP projection. This is likely artifactual however an acute nondisplaced fracture could appear similar. 2. Severe left knee osteoarthritis with several suspected joint bodies. 3. Left knee soft tissue swelling. ACT 112: Negative or not required by law. Electronically signed by: Ernesto Nguyen M.D. 10/22/2022 4:39 PM
--- NOTE | 2022-10-22 16:44 | CT Scan Report ---
CT SCAN OF THE CERVICAL SPINE CLINICAL HISTORY: Trauma. COMPARISON STUDY: No priors. TECHNIQUE: CT scan of the cervical spine is performed from the skull base to the upper thoracic spine . Images are reviewed in the axial, sagittal, and coronal planes. IV contrast was not administered fo r this examination. A dose lowering technique was utilized adhering to the principles of ALARA. FINDINGS: Skeletal structures: The skeletal structures are osteopenic. C1 is fused with the occiput. There is p artial bony fusion of C2 and C3. There is no evidence of fracture or subluxation involving the cervic al spine. Vertebral body height is maintained. There is minimal anterolisthesis at C3-C4. Alignment i s otherwise preserved. There is straightening of the cervical lordosis. Anterior osteophytes are seen throughout. The odontoid process and lateral masses are intact. The atlantoaxial articulation is pr eserved. The spinous processes appear intact. There is [id number]-[id number] multilevel facet arthropathy. Intervertebral discs: There is mild multilevel disc space narrowing. Central canal: Grossly patent. Soft tissues: The prevertebral and paraspinous soft tissues are within normal limits. Calvarium: The visualized calvarium at the skull base appears intact. Brain parenchyma: Partially visualized brain parenchyma at the skull base is within normal limits. Sinuses and mastoids: The visualized paranasal sinuses are clear. The mastoid air cells are well pneu matized. Lung apices: Clear as visualized. IMPRESSION: 1. There is no evidence of cervical spine fracture or subluxation. 2. Osteopenia with developmental and degenerative change as above. ACT 112: Negative or not required by law. Electronically signed by: Juan Seo M.D. 10/22/2022 4:43 PM
--- NOTE | 2022-10-22 17:03 | XRay Report ---
XR knee RT 1 or 2V routine CLINICAL HISTORY: trauma COMPARISON: None FINDINGS: No definite acute fracture is identified. There is no joint effusion. Apparent lucency wit hin the patella on AP projection is noted. This appears to have sclerotic margins. Severe medial comp artment joint space narrowing is noted. There is knee soft tissue swelling. Patellofemoral compartmen t osteophytosis also present. IMPRESSION: 1. No definite acute fracture. Apparent lucency within the patella on AP projection. This is likely a rtifactual or chronic. An acute fracture is considered less likely although could be correlated with point tenderness. 2. Severe medial compartment osteoarthritis of the right knee. 3. Right knee soft tissue swelling. ACT 112: Negative or not required by law. Electronically signed by: Ernesto Nguyen M.D. 10/22/2022 5:01 PM
--- NOTE | 2022-10-22 17:07 | XRay Report ---
SUPINE PORTABLE AP CHEST RADIOGRAPH CLINICAL HISTORY: trauma COMPARISON STUDY: Chest radiograph September 30, 2022. FINDINGS: There is no pneumothorax on supine exam. Minimal hazy right basilar opacity is noted. There may be a trace right pleural effusion. A hiatal hernia is noted. Cardiomediastinal silhouette is oth erwise unremarkable on supine exam. IMPRESSION: 1. No pneumothorax identified on supine exam. 2. Hazy right basilar opacity. This could reflect a small right pleural effusion or minimal airspace opacity. ACT 112: Negative or not required by law. Electronically signed by: Ernesto Nguyen M.D. 10/22/2022 5:05 PM
--- NOTE | 2022-10-22 17:31 | Electrocardiogram Report ---
Test Reason : Blood Pressure : / mmHG Vent. Rate : 097 BPM Atrial Rate : 097 BPM P-R Int : 138 ms QRS Dur : 074 ms QT Int : 320 ms P-R-T Axes : 050 -18 062 degrees QTc Int : 406 ms Normal sinus rhythm When compared with ECG of 30-SEP-2022 16:15, Nonspecific T wave abnormality no longer evident in Anterior leads Confirmed by David Rashid ([id number]) on 10/22/2022 5:31:17 PM Referred By: REFERRED SELF Confirmed By:Michael Rashid
[2022-10-22 18:31] LABS: Appearance Urine Turbid (Clear); Bacteria Urine Automated 4+ (Negative); Bilirubin Urine Negative (Negative); Blood Urine 1+ (Negative); Color Urine Dark Yellow; Epithelial Cell Urine Auto 0-5 /lpf (0-5); Glucose Urine UA Negative (Negative); Ketones Urine Trace (Negative); Leukocyte Esterase Urine 1+ (Negative); Nitrite Urine Negative (Negative); Protein Urine 1+ (Negative); RBC Urine Automated >30 /hpf (0-4); Specific Gravity Urine 1.022 (1.000-1.030); Urobilinogen Urine Negative (Negative); WBC Urine Automated >30 /hpf (0-5)
[2022-10-22] MEDS ORDERED: ACETAMINOPHEN 1,000 MG/100 ML VIAL IV STA (19:01)
[2022-10-22] MEDS ORDERED: CEFEPIME 2,000 MG/20 ML VIAL IV STA (19:02)
--- NOTE | 2022-10-22 20:36 | History & Physical Report ---
Date of Service October 22, 2022 Assessment & Plan (1) CHI (closed head injury): (2) Acute hyponatremia: (3) Anasarca: (4) DVT (deep venous thrombosis): (5) Acute UTI (urinary tract infection): Plan Closed head injury- Secondary to mechanical fall as she was trying to get up over step with her walker when getting out of a car Minor skin abrasions on face and forehead CT of the head was negative Hyponatremia/anasarca- Secondary to volume overload Sodium is 125, potassium 5.7, albumin is 2.6, Give albumin 25 g IV twice daily followed by furosemide 40 mg IV twice daily, with first doses this evening Follow serial BMP and magnesium levels in a.m. 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, and was changed to Lovenox during last admission History of Present Illness Chief Complaint: The patient presents to the emergency department with reports that as she was getting out of her daughter's car, and trying to step up over a step onto the pavement with her walker, she lifted 1 leg up successfully, then when she attempted to lift a second leg up, she ultimately fell forward, hitting her face and head Primary Care Provider: John Covington The patient is a 77-year-old female with a past medical history including anasarca, endometrial mass, hypertension, DVT right lower extremity and partial small bowel obstruction. She was most recently mated to [facility] from 09/30-10/02/2022 for partial small bowel obstruction and DVT of right lower extremity. She was then sent to rehab,, had completed her stay today, and was attempting to get out of her daughter's car and into her daughter's house, when she fell as noted above. Allergies Allergy/AdvReac Type Severity Reaction Status Date / Time No Known Drug Allergies Allergy Unknown . Verified 09/30/22 17:38 Home Medications Medication Instructions Recorded Confirmed Type acetaminophen 500 mg tablet 500 - 1,000 mg PO Q6H PRN Pain 09/30/22 10/22/22 History (Tylenol Extra Strength) metoprolol succinate 50 mg 50 mg PO DAILY 09/30/22 10/22/22 History tablet,extended release 24 hr pantoprazole 40 mg tablet,delayed 40 mg PO QAM 09/30/22 10/22/22 History release enoxaparin 100 mg/mL subcutaneous 100 mg subcut BID 10/22/22 10/22/22 History syringe granisetron HCl 1 mg tablet 1 mg PO Q12H PRN n/v 10/22/22 10/22/22 History hydromorphone 2 mg tablet 2 mg PO Q3H PRN Pain 10/22/22 10/22/22 History (Dilaudid) metoclopramide HCl 10 mg tablet 10 mg PO BID 10/22/22 10/22/22 History (Reglan) simethicone 1 tab PO Q6H PRN Other 10/22/22 10/22/22 History Past Med/Surg History Social History Smoking Status: Never smoker Second Hand Exposure: No; Do You Dip or Chew Tobacco: No; Tobacco Cessation Education Requested by Patient: No Hx Alcohol Use: No Hx Substance Use: No Preferred Language: Lebanese Communication Ability: Effective Education Technician Required: No Beliefs That Will Affect Care: None Current Living Situation: Alone Other Information That Helps Us Care for You: No Feels Safe at Home: Yes Safety Concerns: Feels Safe At This Time Assistive Devices: Cane, Walker and Wheelchair Review of Systems Review of Systems: The patient denies chest pain, palpitations, shortness of breath, dyspnea on exertion, cough, sore throat, fevers, chills, sweats, nausea, vomiting, diarrhea , constipation, abdominal pain, pelvic pain, blood in urine or stool, dysuria, urinary frequency or urgency, lightheadedness, dizziness, headache, memory loss, loss of consciousness, focal or generalized weakness, numbness or tingling in arms, generalized arthralgias or myalgias, back or neck pain, or night sweats. The review of systems is otherwise negative other than for that already noted above, and at least 10 systems have been reviewed. Physical Exam Physical Exam: The patient is awake, alert and oriented 3, well developed and well nourished, abrasions on nose and forehead, lying in bed and in no acute distress. HEENT--PERRL, EOMI, mucous membranes and oropharynx normal. Neck--supple. No JVD. No bruits. Thyroid normal, trachea midline, no adenopathy. Heart--normal S1 and S2. No murmurs, rubs or gallops. Lungs--clear bilaterally, no respiratory distress, no accessory muscle use. Abdomen--normal bowel sounds and soft. Nontender. Nondistended, no hernias or masses, no organomegaly. Extremities--2+ bilateral pretibial, and thigh pitting edema Dermatologic--facial abrasions as noted Neurologic--cranial nerves II through XII grossly intact. Rheumatologic--normal range of motion. Psychiatric--normal affect. Results & Data Results & Data Vital Signs (Past 12 Hours) Vital Signs Temp Pulse Pulse Resp BP BP Pulse Ox 10/22/22 19:31 104 H 18 144/90 H 96 10/22/22 18:50 104 H 10/22/22 17:46 97 H 18 139/97 96 10/22/22 14:58 98 H 10/22/22 14:32 36.7 C 99 H 18 136/89 94 O2 Del Method 10/22/22 19:31 Room Air 10/22/22 18:50 10/22/22 17:46 10/22/22 14:58 10/22/22 14:32 Room Air Laboratory Results Laboratory Results WBC 19.13 K/ul (4.8-10.8) H 10/22/22 15:16 RBC 4.33 M/uL (4.20-5.40) 10/22/22 15:16 Hgb 10.7 g/dl (12.0-16.0) L 10/22/22 15:16 Hct 33.5 % (37.0-47.0) L 10/22/22 15:16 MCV 77.4 fL (80.0-100.0) L 10/22/22 15:16 MCH 24.7 pg (25.0-34.0) L 10/22/22 15:16 MCHC 31.9 g/dL (32.0-36.0) L 10/22/22 15:16 RDW Std Deviation 50.7 fL (36.4-46.3) H 10/22/22 15:16 RDW Coeff of Adam 18.4 % (11.5-14.5) H 10/22/22 15:16 Plt Count 584 K/uL (130-400) H 10/22/22 15:16 MPV 8.6 fL (9.4-12.4) L 10/22/22 15:16 Immature Gran % (Auto) 0.8 % 10/22/22 15:16 Neut % (Auto) 88.5 % 10/22/22 15:16 Lymph % (Auto) 4.9 % 10/22/22 15:16 Guthrie % (Auto) 5.5 % 10/22/22 15:16 Eos % (Auto) 0.1 % 10/22/22 15:16 Baso % (Auto) 0.2 % 10/22/22 15:16 Neut # (Auto) 16.96 K/uL (1.40-6.50) H 10/22/22 15:16 Lymph # (Auto) 0.93 K/uL (1.2-3.4) L 10/22/22 15:16 Guthrie # (Auto) 1.05 K/uL (0.11-0.59) H 10/22/22 15:16 Eos # (Auto) 0.01 K/uL (0-0.50) 10/22/22 15:16 Baso # (Auto) 0.03 K/uL (0-0.2) 10/22/22 15:16 Immature Gran # (Auto) 0.15 K/uL (0.01-0.20) 10/22/22 15:16 Sodium 125 mmol/L (136-145) L 10/22/22 15:16 Potassium 5.7 mmol/L (3.5-5.1) H 10/22/22 15:16 Chloride 95 mmol/L (98-107) L 10/22/22 15:16 Carbon Dioxide 22 mmol/L (21-32) 10/22/22 15:16 Anion Gap 8 (3-11) 10/22/22 15:16 BUN 49 mg/dl (6-23) H 10/22/22 15:16 Creatinine 1.10 mg/dl (0.6-1.2) 10/22/22 15:16 Est Cr Clr Drug Dosing 53.6 ml/min 10/22/22 15:16 Est GFR ( Amer) 56.1 ml/min 10/22/22 15:16 Est GFR (Non-Af Amer) 48.4 ml/min 10/22/22 15:16 BUN/Creatinine Ratio 44.5 (10-20) H 10/22/22 15:16 Glucose 123 mg/dl (70-99(Fasting)) H 10/22/22 15:16 Calcium 8.5 mg/dl (8.6-10.3) L 10/22/22 15:16 Total Bilirubin 0.4 mg/dl (0.2-1.0) 10/22/22 15:16 AST 11 U/L (13-39) L 10/22/22 15:16 ALT 6 U/L (7-52) L 10/22/22 15:16 Alkaline Phosphatase 108 U/L (34-104) H 10/22/22 15:16 Total Protein 5.7 gm/dl (6.0-8.3) L 10/22/22 15:16 Albumin 2.6 gm/dl (3.4-5.0) L 10/22/22 15:16 Globulin 3.1 gm/dl (2.5-4.0) 10/22/22 15:16 Albumin/Globulin Ratio 0.8 (0.9-2) L 10/22/22 15:16 Urine Color Dark Yellow 10/22/22 18:08 Urine Appearance Turbid (Clear) A 10/22/22 18:08 Urine pH 7.0 (4.5-7.5) 10/22/22 18:08 Ur Specific Alma 1.022 (1.000-1.030) 10/22/22 18:08 Urine Protein 1+ (Negative) H 10/22/22 18:08 Urine Glucose (UA) Negative (Negative) 10/22/22 18:08 Urine Ketones Trace (Negative) H 10/22/22 18:08 Urine Blood 1+ (Negative) H 10/22/22 18:08 Urine Nitrite Negative (Negative) 10/22/22 18:08 Urine Bilirubin Negative (Negative) 10/22/22 18:08 Urine Urobilinogen Negative (Negative) 10/22/22 18:08 Ur Leukocyte Esterase 1+ (Negative) H 10/22/22 18:08 Urine WBC (Auto) >30 /hpf (0-5) H 10/22/22 18:08 Urine RBC (Auto) >30 /hpf (0-4) H 10/22/22 18:08 U Hyaline Cast (Auto) 1-5 /lpf (0-5) 10/22/22 18:08 U Epithel Cells (Auto) 0-5 /lpf (0-5) 10/22/22 18:08 Urine Bacteria (Auto) 4+ (Negative) H 10/22/22 18:08 Urine Yeast Not Reportable 10/22/22 18:08 SARS-CoV-2 (PCR) NEGATIVE (Negative) 10/22/22 19:42 Influenza Type A (PCR) Negative (Neg) 10/22/22 19:42 Influenza Type B (PCR) Negative (Neg) 10/22/22 19:42 RSV (RT-PCR) Negative (Neg) 10/22/22 19:[address] 10/22/22 15:08 CT SCAN OF THE CERVICAL SPINE CLINICAL HISTORY: Trauma. COMPARISON STUDY: No priors. TECHNIQUE: CT scan of the cervical spine is performed from the skull base to the upper thoracic spine. Images are reviewed in the axial, sagittal, and coronal planes. IV contrast was not administered for this examination. A dose lowering technique was utilized adhering to the principles of ALARA. FINDINGS: Skeletal structures: The skeletal structures are osteopenic. C1 is fused with the occiput. There is partial bony fusion of C2 and C3. There is no evidence of fracture or subluxation involving the cervical spine. Vertebral body height is maintained. There is minimal anterolisthesis at C3-C4. Alignment is otherwise preserved. There is straightening of the cervical lordosis. Anterior osteophytes are seen throughout. The odontoid process and lateral masses are intact. The atlantoaxial articulation is preserved. The spinous processes appear intact. There is [id number] multilevel facet arthropathy. Intervertebral discs: There is mild multilevel disc space narrowing. Central canal: Grossly patent. Soft tissues: The prevertebral and paraspinous soft tissues are within normal limits. Calvarium: The visualized calvarium at the skull base appears intact. Brain parenchyma: Partially visualized brain parenchyma at the skull base is within normal limits. Sinuses and mastoids: The visualized paranasal sinuses are clear. The mastoid air cells are well pneumatized. Lung apices: Clear as visualized. IMPRESSION: 1. There is no evidence of cervical spine fracture or subluxation. 2. Osteopenia with developmental and degenerative change as above. ACT 112: Negative or not required by law. Electronically signed by: Juan Seo M.D. 10/22/2022 4:43 PM Chest X-Ray 10/22/22 15:08 SUPINE PORTABLE AP CHEST RADIOGRAPH CLINICAL HISTORY: trauma COMPARISON STUDY: Chest radiograph September 30, 2022. FINDINGS: There is no pneumothorax on supine exam. Minimal hazy right basilar opacity is noted. There may be a trace right pleural effusion. A hiatal hernia is noted. Cardiomediastinal silhouette is otherwise unremarkable on supine exam. IMPRESSION: 1. No pneumothorax identified on supine exam. 2. Hazy right basilar opacity. This could reflect a small right pleural effusion or minimal airspace opacity. ACT 112: Negative or not required by law. Electronically signed by: Ernesto Nguyen M.D. 10/22/2022 5:[address] 10/22/22 15:[address] WITHOUT CONTRAST CLINICAL HISTORY: trauma COMPARISON STUDY: None. TECHNIQUE: A maxillofacial CT was performed without IV contrast. Coronal and sagittal reformats were viewed. Automated exposure control was utilized for the study. A dose lowering technique was utilized adhering to the principles of ALARA. FINDINGS: There may be a nasal contusion. No acute facial bone fracture is identified. Globes are intact. No retrobulbar hematoma. Alignment of the temporomandibular joints is anatomic. Severe degenerative changes within the upper cervical spine are noted. Cervical spine CT will be reported separately. IMPRESSION: No acute facial fracture. ACT 112: Negative or not required by law. Electronically signed by: Ernesto Nguyen M.D. 10/22/2022 4:[address] 10/22/22 15:08 CT OF THE HEAD WITHOUT CONTRAST CLINICAL HISTORY: trauma COMPARISON STUDY: No previous studies for comparison. CT DOSE: 1212.84 mGy.cm TECHNIQUE: Helical axial images of the head were obtained without IV contrast. Automated exposure control was utilized for the study. A dose lowering technique was utilized adhering to the principles of ALARA. FINDINGS: No acute intracranial hemorrhage, midline shift or mass effect is present. A 4 mm calcific density within the left cerebellar hemisphere is noted. This is not acute. There is bilateral basilar ganglia calcification. The ventr icular system is unremarkable. The basal cisterns are patent. No extra-axial collections are present. There are no findings to suggest acute dural sinus thrombosis or acute territorial infarct. No significant calvarial abnormalities are present. Visualized portions of the sinuses and mastoid air cells are clear. IMPRESSION: 1. No acute intracranial findings. 2. No acute calvarial fracture. ACT 112: Negative or not required by law. Electronically signed by: Ernesto Nguyen M.D. 10/22/2022 4:33 PM Knee X-Ray 10/22/22 15:08 XR knee RT 1 or 2V routine CLINICAL HISTORY: trauma COMPARISON: None FINDINGS: No definite acute fracture is identified. There is no joint effusion. Apparent lucency within the patella on AP projection is noted. This appears to have sclerotic margins. Severe medial compartment joint space narrowing is noted. There is knee soft tissue swelling. Patellofemoral compartment osteophytosis also present. IMPRESSION: 1. No definite acute fracture. Apparent lucency within the patella on AP projection. This is likely artifactual or chronic. An acute fracture is considered less likely although could be correlated with point tenderness. 2. Severe medial compartment osteoarthritis of the right knee. 3. Right knee soft tissue swelling. ACT 112: Negative or not required by law. Electronically signed by: Ernesto Nguyen M.D. 10/22/2022 5:01 PM Code Status & VTE Plan Code Status Full code VTE Prophylaxis Plan VTE Prophylaxis will be ordered: Yes PG Care Time/CCT Total # of Minutes Spent Total Time Spent with Patient: Total time spent is greater than 50% in coordination of care (as documented) at patient's floor/unit and/or counseling patient: Coding Level of Care Code 39396 INT INP/OBS CARE 3/75MIN Diagnoses CHI (closed head injury) S09.90XA Acute hyponatremia E87.1 Anasarca R60.1 DVT (deep venous thrombosis) I82.409 Acute UTI (urinary tract infection) N39.0
[2022-10-22 20:39] LABS: Influenza A virus by PCR Negative (Neg); Influenza B virus by PCR Negative (Neg); RSV by PCR Negative (Neg); SARS CoV2 RNA(COVID-19) Ceph NEGATIVE (Negative)
[2022-10-22] MEDS ORDERED: ENOXAPARIN 100 MG/1ML SYR SQ STA (21:49)
[2022-10-22] MEDS ORDERED: ALBUMIN 25% 25 GM/100 ML VIAL IV ONE (22:00)
[2022-10-22] MEDS ORDERED: FUROSEMIDE 40 MG/4 ML VIAL IV ONE (23:00)
[2022-10-23] MEDS ORDERED: FUROSEMIDE 40 MG/4 ML VIAL IV ONE
[2022-10-23] MEDS ORDERED: SIMETHICONE 80 MG CHEW PO PRN (00:51)
[2022-10-23] MEDS: METOCLOPRAMIDE HCL 10 MG TABLET PO SCH ×3 (02:17→21:14)
[2022-10-23] MEDS: ACETAMINOPHEN 325 MG TAB PO PRN ×4 (03:08→23:25)
[2022-10-23] MEDS: ONDANSETRON INJ 2 MG/ML 2 ML VIAL IV PRN (03:15)
[2022-10-23] MEDS ORDERED: HYDROmorphone INJ 0.5 MG/0.5 ML SYR IV STA (03:34)
[2022-10-23 08:17] LABS: BUN Creatinine Ratio 42.9 (10-20); Bilirubin,Total 0.5 mg/dl (0.2-1.0); Calcium 8.9 mg/dl (8.6-10.3); Creatinine Clr Calc Pharmacy 49.5 ml/min; Globulin 2.9 gm/dl (2.5-4.0); Magnesium 1.7 mg/dl (1.7-2.4); Potassium 5.1 mmol/L (3.5-5.1); Total Protein 5.9 gm/dl (6.0-8.3)
[2022-10-23] MEDS: METOPROLOL SUCC 50MG EXT REL TAB PO SCH (08:28)
[2022-10-23] MEDS: ENOXAPARIN 100 MG/1ML SYR SQ SCH ×2 (08:29→21:14)
[2022-10-23] MEDS: PANTOprazole 40 MG TAB PO SCH (08:29)
[2022-10-23] MEDS: CEFEPIME 2,000 MG in SYRINGE 0 ML IV SCH ×2 (08:36→19:31)
--- NOTE | 2022-10-23 09:07 | Hospitalist Progress Note ---
Date of Service October 23, 2022 Assessment & Plan (1) CHI (closed head injury): Plan: Attending: Dr. Cavanaugh Secondary to mechanical fall getting out of car CT scan of the head was negative for any acute findings (2) Contusion of face: Plan: Secondary to mechanical fall CT of the head and face with no evidence of acute fracture (3) Contusion of knee: Plan: Secondary to mechanical fall No definitive fracture but there is some lucency. PT/OT to see how patient tolerates function. If function is limited, may warrant consultation with orthopedics (4) Acute hyponatremia: Plan: Sodium at 125 on admission This level may be a result of dilution as patient appears to have significant volume overload Diuresis has been initiated Patient given albumin Follow serial labs (5) Endometrial mass: Plan: Patient with previous history of cervical cancer as well as colon cancer. Patient received considerable radiation for her cervical cancer in the past. At this time patient and daughter indicate that completed treatment resulted in remission of all cancer of both the colon as well as the cervix Patient most recently identified with endometrial mass. Patient was transferred to [facility] in [place] where biopsy was obtained. Pathology results are not immediately available, but patient and daughter indicate that it was positive for malignancy. Staining is not available so differentiation is not known at this time Patient continues to have active bleeding from biopsy which was completed 10/05/[address] Jaclyn Rueda from radiation oncology. There may be benefit to radiation to help with bleeding but at this time database is not complete and we are not aware of total fractions received by patient in the past. Records have been requested and will be afforded to Dr. Rueda as soon as available. Nonetheless, we will not be able to initiate mapping or treatment prior to Wednesday Also discussed with Dr. Fish from oncology. He also agrees that once records are reviewed, there may be options regarding chemotherapeutic or immunological treatment but cannot determine that until records are reviewed with current pathology We will request records and have them scanned into [employer] and forwarded to Dr. Fish and Mohit Long discussion with patient and daughter regarding probable third primary malignancy. Patient does want to undergo treatment but understands that current state may result in palliative care and/or hospice. She understands that most likely any treatment will not be curative. She is very engaged in conversation and reports that she does not want to have any heroic resuscitation and would defer from any cardiopulmonary resuscitation including chest compressions, endotracheal intubation, mechanical ventilation or feeding tubes should she have a significant decline. She would want to continue with treatment for any illnesses associated with her malignancy as well as treatment for malignancy if it is available. If it is determined that significant treatment is futile, patient does indicate that she would prefer to be at home on hospice when it is time for her to pass. Daughter is very supportive with her mother's decision. At this time, due to uterine bleeding, severe anasarca, electrolyte imbalance, patient's profound weakness, will continue to remain inpatient pending complete work-up and determination of treatment plan early next week. (6) HTN (hypertension): Plan: Treated with Toprol XL 50 mg p.o. daily at home May be exacerbated secondary to pain from fall We will continue home medications Currently stable with a blood pressure of 127/78. (7) DVT (deep venous thrombosis): Plan: Recent diagnosis and most likely secondary to known malignancy Patient was discharged on enoxaparin 100 mg subcutaneously twice daily Will review for appropriateness of DOAC Ambulate as tolerated Admission and Anticipated Discharge Date Admission Date: October 22, 2022 Subjective Attending: Dr. Cavanaugh This is a 77-year-old female that was recently admitted to [facility] from 09/30/2022 to 10/02/2022 for small bowel obstruction and DVT of right lower extremity. Patient was discharged to rehab and completed her therapy yesterday and was discharged home. She is attempting to get out of her daughter's car after leaving rehab and fell striking her head. CT scan of the head and face were negative for acute findings. X-ray of the knee showed no definite acute fracture. Severe osteoarthritis noted. On admission, patient was hyponatremic with a sodium of 125. She also had elevated potassium of 5.7. Patient does have history of uterine cancer with metastatic spread. Recent hospitalization with significant right lower extremity DVT with thrombectomy. Patient was discharged on enoxaparin 100 mg subcutaneously twice daily. Review of Systems Review of Systems: A total of 10 systems was reviewed and is negative other than as listed in the HPI Physical Exam Physical Exam: GENERAL : No acute distress EYES: No icterus, gaze conjugate NOSE: No evidence of epistaxis MOUTH: No lesions or candidiasis NECK: Supple LUNGS: CTA B/L, no wheezes, rales or rhonchi HEART: Regular, rate controlled ABDOMEN: Soft, NT, BS Present. Considerable ascites appreciated EXTREMITIES: +3 bilateral LE edema, pedal pulses intact and equal bilaterally NEURO: A&OX3 Results & Data Results & Data Vital Signs (Past 12 Hours) Vital Signs Temp Pulse Pulse Resp BP BP Pulse Ox 10/23/22 07:25 36.6 C 101 H 18 127/78 95 10/23/22 02:39 36.5 C 93 H 18 149/86 H 97 10/23/22 00:58 102 H 10/23/22 00:50 36.5 C 97 H 18 150/84 H 99 10/23/22 00:00 93 H 15 152/82 H 97 10/22/22 23:30 95 H 20 138/89 97 10/22/22 23:00 102 H 20 155/90 H 99 10/22/22 22:45 98 H 10/22/22 21:08 105 H 18 134/89 96 O2 Del Method 10/23/22 07:25 Room Air 10/23/22 02:39 Room Air 10/23/22 00:58 10/23/22 00:50 Room Air 10/23/22 00:00 10/22/22 23:30 10/22/22 23:00 10/22/22 22:45 10/22/22 21:08 Room Air Critical Care Results & Data Vital Signs (Past 12 Hours) Vital Signs Temp Pulse Pulse Resp BP BP Pulse Ox 10/23/22 07:25 36.6 C 101 H 18 127/78 95 10/23/22 02:39 36.5 C 93 H 18 149/86 H 97 10/23/22 00:58 102 H 10/23/22 00:50 36.5 C 97 H 18 150/84 H 99 10/23/22 00:00 93 H 15 152/82 H 97 10/22/22 23:30 95 H 20 138/89 97 10/22/22 23:00 102 H 20 155/90 H 99 10/22/22 22:45 98 H 10/22/22 21:08 105 H 18 134/89 96 O2 Del Method 10/23/22 07:25 Room Air 10/23/22 02:39 Room Air 10/23/22 00:58 10/23/22 00:50 Room Air 10/23/22 00:00 10/22/22 23:30 10/22/22 23:00 10/22/22 22:45 10/22/22 21:08 Room Air Lab & Micro Results (Past 24 Hours) RBC 4.28 M/uL (4.20-5.40) 10/23/22 WBC 15.54 K/ul (4.8-10.8) H 10/23/22 Hgb 10.9 g/dl (12.0-16.0) L 10/23/22 Hct 32.8 % (37.0-47.0) L 10/23/22 MCV 76.6 fL (80.0-100.0) L 10/23/22 MCH 25.5 pg (25.0-34.0) 10/23/22 MCHC 33.2 g/dL (32.0-36.0) 10/23/22 RDW Standard Deviation 51.0 fL (36.4-46.3) H 10/23/22 RDW Coefficient of Variation 18.5 % (11.5-14.5) H 10/23/22 Plt Count 526 K/uL (130-400) H 10/23/22 MPV 8.9 fL (9.4-12.4) L 10/23/22 Neutrophils (%) (Auto) 80.4 % 10/23/22 Lymphocytes (%) (Auto) 11.8 % 10/23/22 Monocytes # (Auto) 1.09 K/uL (0.11-0.59) H 10/23/22 Eosinophils # (Auto) 0.02 K/uL (0-0.50) 10/23/22 Immature Granulocyte % (Auto) 0.6 % 10/23/22 Neutrophils # (Auto) 12.49 K/uL (1.40-6.50) H 10/23/22 Lymphocytes # (Auto) 1.84 K/uL (1.2-3.4) 10/23/22 Monocytes # (Auto) 1.09 K/uL (0.11-0.59) H 10/23/22 Eosinophils # (Auto) 0.02 K/uL (0-0.50) 10/23/22 Basophils # (Auto) 0.01 K/uL (0-0.2) 10/23/22 Immature Granulocyte # (Auto) 0.09 K/uL (0.01-0.20) 3 Na 125 mmol/L (136-145) L 10/23/22 K 5.1 mmol/L (3.5-5.1) 10/23/22 Cl 93 mmol/L (98-107) L 10/23/22 CO2 23 mmol/L (21-32) 10/23/22 Anion Gap 9 (3-11) 10/23/22 BUN 51 mg/dl (6-23) H 10/23/22 Creatinine 1.19 mg/dl (0.6-1.2) 10/23/22 Estimated GFR ( Amer) 51.0 ml/min 10/23/22 Estimated GFR (Non-Af Amer) 44.0 ml/min 10/23/22 BUN/Creatinine Ratio 42.9 (10-20) H 10/23/22 Glu 100 mg/dl (70-99(Fasting)) H 10/23/22 Ca 8.9 mg/dl (8.6-10.3) 10/23/22 Total Bilirubin 0.5 mg/dl (0.2-1.0) 10/23/22 AST 12 U/L (13-39) L 10/23/22 ALT 6 U/L (7-52) L 10/23/22 Alkaline Phosphatase 97 U/L (34-104) 10/23/22 TP 5.9 gm/dl (6.0-8.3) L 10/23/22 Albumin 3.0 gm/dl (3.4-5.0) L 10/23/22 Globulin 2.9 gm/dl (2.5-4.0) 10/23/22 Albumin/Globulin Ratio 1.0 (0.9-2) 10/23/22 Mg 1.7 mg/dl (1.7-2.4) 10/23/22 07:42 Calcium Level 8.9 mg/dl (8.6-10.3) 10/23/22 07:42 Microbiology 10/22/22 18:08 Urine Culture - Preliminary Urine,Straight Cath Gram negative bacilli Diagnostic Findings (Past 24 Hours) Cervical Spine CT 10/22/22 15:08 CT SCAN OF THE CERVICAL SPINE CLINICAL HISTORY: Trauma. COMPARISON STUDY: No priors. TECHNIQUE: CT scan of the cervical spine is performed from the skull base to the upper thoracic spine. Images are reviewed in the axial, sagittal, and coronal planes. IV contrast was not administered for this examination. A dose lowering technique was utilized adhering to the principles of ALARA. FINDINGS: Skeletal structures: The skeletal structures are osteopenic. C1 is fused with the occiput. There is partial bony fusion of C2 and C3. There is no evidence of fracture or subluxation involving the cervical spine. Vertebral body height is maintained. There is minimal anterolisthesis at C3-C4. Alignment is otherwise preserved. There is straightening of the cervical lordosis. Anterior osteophytes are seen throughout. The odontoid process and lateral masses are intact. The atlantoaxial articulation is preserved. The spinous processes appear intact. There is [id number] multilevel facet arthropathy. Intervertebral discs: There is mild multilevel disc space narrowing. Central canal: Grossly patent. Soft tissues: The prevertebral and paraspinous soft tissues are within normal limits. Calvarium: The visualized calvarium at the skull base appears intact. Brain parenchyma: Partially visualized brain parenchyma at the skull base is within normal limits. Sinuses and mastoids: The visualized paranasal sinuses are clear. The mastoid air cells are well pneumatized. Lung apices: Clear as visualized. IMPRESSION: 1. There is no evidence of cervical spine fracture or subluxation. 2. Osteopenia with developmental and degenerative change as above. ACT 112: Negative or not required by law. Electronically signed by: Juan Seo M.D. 10/22/2022 4:43 PM Chest X-Ray 10/22/22 15:08 SUPINE PORTABLE AP CHEST RADIOGRAPH CLINICAL HISTORY: trauma COMPARISON STUDY: Chest radiograph September 30, 2022. FINDINGS: There is no pneumothorax on supine exam. Minimal hazy right basilar opacity is noted. There may be a trace right pleural effusion. A hiatal hernia is noted. Cardiomediastinal silhouette is otherwise unremarkable on supine exam. IMPRESSION: 1. No pneumothorax identified on supine exam. 2. Hazy right basilar opacity. This could reflect a small right pleural effusion or minimal airspace opacity. ACT 112: Negative or not required by law. Electronically signed by: Ernesto Nguyen M.D. 10/22/2022 5:[address] 10/22/22 15:[address] WITHOUT CONTRAST CLINICAL HISTORY: trauma COMPARISON STUDY: None. TECHNIQUE: A maxillofacial CT was performed without IV contrast. Coronal and sagittal reformats were viewed. Automated exposure control was utilized for the study. A dose lowering technique was utilized adhering to the principles of ALARA. FINDINGS: There may be a nasal contusion. No acute facial bone fracture is identified. Globes are intact. No retrobulbar hematoma. Alignment of the temporomandibular joints is anatomic. Severe degenerative changes within the upper cervical spine are noted. Cervical spine CT will be reported separately. IMPRESSION: No acute facial fracture. ACT 112: Negative or not required by law. Electronically signed by: Ernesto Nguyen M.D. 10/22/2022 4:[address] 10/22/22 15:08 CT OF THE HEAD WITHOUT CONTRAST CLINICAL HISTORY: trauma COMPARISON STUDY: No previous studies for comparison. CT DOSE: 1212.84 mGy.cm TECHNIQUE: Helical axial images of the head were obtained without IV contrast. Automated exposure control was utilized for the study. A dose lowering technique was utilized adhering to the principles of ALARA. FINDINGS: No acute intracranial hemorrhage, midline shift or mass effect is present. A 4 mm calcific density within the left cerebellar hemisphere is noted. This is not acute. There is bilateral basilar ganglia calcification. The ventricular system is unremarkable. The basal cisterns are patent. No extra- axial collections are present. There are no findings to suggest acute dural sinus thrombosis or acute territorial infarct. No significant calvarial abnormalities are present. Visualized portions of the sinuses and mastoid air cells are clear. IMPRESSION: 1. No acute intracranial findings. 2. No acute calvarial fracture. ACT 112: Negative or not required by law. Electronically signed by: Ernesto Nguyen M.D. 10/22/2022 4:33 PM Knee X-Ray 10/22/22 15:08 XR knee LT 1 or 2V routine CLINICAL HISTORY: trauma COMPARISON: None FINDINGS: No definite acute fracture is identified. Note is made of a vertical lucency through the patella on AP projection. There is no joint effusion. A 1.6 cm calcific density medial to the distal tibial plateau is chronic. Severe medial compartment joint space narrowing is noted with osteophytosis. There are several suspected joint bodies. Soft tissue swelling is noted. IMPRESSION: 1. Vertical lucency through the patella on AP projection. This is likely artifactual however an acute nondisplaced fracture could appear similar. 2. Severe left knee osteoarthritis with several suspected joint bodies. 3. Left knee soft tissue swelling. ACT 112: Negative or not required by law. Electronically signed by: Ernesto Nguyen M.D. 10/22/2022 4:39 PM Knee X-Ray 10/22/22 15:08 XR knee RT 1 or 2V routine CLINICAL HISTORY: trauma COMPARISON: None FINDINGS: No definite acute fracture is identified. There is no joint effusion. Apparent lucency within the patella on AP projection is noted. This appears to have sclerotic margins. Severe medial compartment joint space narrowing is noted. There is knee soft tissue swelling. Patellofemoral compartment osteophytosis also present. IMPRESSION: 1. No definite acute fracture. Apparent lucency within the patella on AP projection. This is likely artifactual or chronic. An acute fracture is considered less likely although could be correlated with point tenderness. 2. Severe medial compartment osteoarthritis of the right knee. 3. Right knee soft tissue swelling. ACT 112: Negative or not required by law. Electronically signed by: Ernesto Nguyen M.D. 10/22/2022 5:01 PM I & O Totals 24 Hours 10/22/22 10/23/22 10/24/22 06:59 06:59 06:59 Intake Total 200 / 200 Output Total 201 / 201 Balance -1 / -1 Cumulative 10/22/22 14:11 thru 10/23/22 06:00 Intake Total 200 Output Total 201 Balance -1 RT Ventilator Mngmt (Last Documented) Ventilator Ordered Settings Respiratory Rate 18 10/23/22 07:25 Ventilator - PT Measurements Respiratory Rate 18 PG Care Time/CCT Total # of Minutes Spent Total Time Spent with Patient: Total time spent is greater than 50% in coordination of care (as documented) at patient's floor/unit and/or counseling patient:60 minutes and family discussion with [id number] conversation with patient and daughter. In addition, discussions throughout the day with both Dr. Fish and Mohit Coding Level of Care Code 84978 SUB INP/OBS CARE 3/50MIN Diagnoses CHI (closed head injury) S09.90XA Contusion of face S00.83XA Contusion of knee S80.00XA Acute hyponatremia E87.1 Endometrial mass N94.89 HTN (hypertension) I10 DVT (deep venous thrombosis) I82.409 Time Spent (min) 60
[2022-10-23 10:02] LABS: Basophils # (auto) 0.01 K/uL (0-0.2); Basophils % (auto) 0.1 %; Eosinophils # (auto) 0.02 K/uL (0-0.50); Eosinophils % (auto) 0.1 %; Hematocrit (blood only) 32.8 % (37.0-47.0); Hemoglobin 10.9 g/dl (12.0-16.0); Immature Granulocytes # (auto) 0.09 K/uL (0.01-0.20); Immature Granulocytes % (auto) 0.6 %; Lymphocytes # (auto) 1.84 K/uL (1.2-3.4); Lymphocytes % (auto) 11.8 %; Mean Corpuscular Hemoglobin 25.5 pg (25.0-34.0); Mean Corpuscular Hgb Conc 33.2 g/dL (32.0-36.0); Mean Corpuscular Volume 76.6 fL (80.0-100.0); Mean Platelet Volume 8.9 fL (9.4-12.4); Monocytes # (auto) 1.09 K/uL (0.11-0.59); Neutrophils # (auto) 12.49 K/uL (1.40-6.50); Neutrophils % (auto) 80.4 %; Platelet Count 526 K/uL (130-400); RDW Coefficient of Variation 18.5 % (11.5-14.5); Red Blood Count 4.28 M/uL (4.20-5.40); White Blood Count 15.54 K/ul (4.8-10.8)
[2022-10-23] MEDS: ALBUMIN 25% 25 GM/100 ML VIAL IV SCH ×2 (10:52→21:30)
[2022-10-23] MEDS: HYDROmorphone HCL 2 MG TAB PO PRN ×2 (10:53→21:13)
[2022-10-23] MEDS ORDERED: GABAPENTIN 150 MG/3 ML UDP PO SCH (12:30)
[2022-10-23] MEDS: FUROSEMIDE 40 MG/4 ML VIAL IV SCH ×2 (12:41→23:26)
[2022-10-23] MEDS ORDERED: HYDROmorphone INJ 2 MG/ML SYR/VIAL IV STA (13:09)
--- NOTE | 2022-10-23 14:14 | Radiation OncologyConsultation ---
Date of Consultation October 23, 2022 Assessment & Plan (1) Colon cancer: (2) Cervical cancer: (3) Endometrial cancer: Plan Assessment: Ms. Hines is a 77-year-old female who presents with a previous history of cervical cancer treated with radiation therapy and brachytherapy in 2010? at [facility] (limited records available), colon cancer treated with surgery and adjuvant chemotherapy in 2013? at [facility] (limited records available) and more recently a diagnosis of endometrial cancer as per the patient and her daughter. The patient states that she was seen by gynecology oncology at [facility] in [place] and they recommended systemic chemotherapy. The patient is having vaginal bleeding which has been persistent since her initial biopsy. The patient was going to meet with her medical oncologist, Dr. Nicole, shortly and then the patient did have a fall and was brought to the emergency room and then admitted to the hospital for further work-up and evaluation. I have been consulted to evaluate the patient regarding the role of radiation therapy. Plan: 1. No plan for radiation therapy at this point. Previous radiation therapy records need to be obtained. There is a potential role for radiation therapy to help palliate the patient's vaginal bleeding however further diagnostic imaging studies are needed to help identify the area of involvement and correlate that with previous radiation therapy. 2. Radiation oncology team will follow-up with the patient on Wednesday to make further recommendations. 3. MRI of pelvis or CT of pelvis with contrast would be helpful in assessing patient's current status of pelvic disease related to her vaginal bleeding. 4. Medical oncology input appreciated. 5. Palliative care consultation could be beneficial. 6. Defer all other care to primary medical team. 7. Patient and family encouraged to call us with any further questions or concerns. History of Present Illness Attending Physician: Gopi Cavanaugh MD History of Present Illness 2010. Diagnosis of cervical cancer. Treated with pelvic radiation therapy and interstitial or intracavitary brachytherapy. Outside records unavailable. Completed at [facility]. 2013. Diagnosis of colon cancer. Treated with surgery followed by adjuvant chemotherapy. 10/2022. Diagnosis of endometrial cancer. Patient states she has had vaginal bleeding since her biopsy procedure. Limited records available. 09/22/2022. CT of abdomen/pelvis. 1. There is marked thickening of the endometrial cavity with spiculation concerning for metastatic endometrial carcinoma. Prominent lymph nodes are seen in the mesentery and retroperitoneum and there are ill-defined mesenteric mass is concerning for peritoneal deposits. Prominent ascites is seen. 2. Partial small bowel obstruction with numerous distended loops of small bowel which appear to transition sagittally to underdistended bowel distal to the pelvic mass. 3. Additional findings as above. 10/22/2022. Patient admitted to hospital due to recent fall. 10/22/2022. CT cervical spine. 1. There is no evidence of cervical spine fracture or subluxation. 2. Osteopenia with developmental and degenerative change as above. 10/22/2022. CT head. IMPRESSION: 1. No acute intracranial findings. 2. No acute calvarial fracture. Allergies Allergy/AdvReac Type Severity Reaction Status Date / Time No Known Drug Allergies Allergy Unknown . Verified 09/30/22 17:38 Home Medications Medication Instructions Recorded Confirmed Type acetaminophen 500 mg tablet 500 - 1,000 mg PO Q6H PRN Pain 09/30/22 10/22/22 History (Tylenol Extra Strength) metoprolol succinate 50 mg 50 mg PO DAILY 09/30/22 10/22/22 History tablet,extended release 24 hr pantoprazole 40 mg tablet,delayed 40 mg PO QAM 09/30/22 10/22/22 History release enoxaparin 100 mg/mL subcutaneous 100 mg subcut BID 10/22/22 10/22/22 History syringe granisetron HCl 1 mg tablet 1 mg PO Q12H PRN n/v 10/22/22 10/22/22 History hydromorphone 2 mg tablet 2 mg PO Q3H PRN Pain 10/22/22 10/22/22 History (Dilaudid) metoclopramide HCl 10 mg tablet 10 mg PO BID 10/22/22 10/22/22 History (Reglan) simethicone 1 tab PO Q6H PRN Other 10/22/22 10/22/22 History Patient History Medical History (Updated 10/23/22 @ 14:17 by Jaclyn Rueda MD) Cervical cancer Colon cancer Endometrial cancer Social History Smoking Status: Never smoker Second Hand Exposure: No; Do You Dip or Chew Tobacco: No; Tobacco Cessation Education Requested by Patient: No Hx Alcohol Use: No Hx Substance Use: No Preferred Language: Swedish Communication Ability: Effective Golf Cart Attendant Required: No Beliefs That Will Affect Care: None Current Living Situation: Alone Other Information That Helps Us Care for You: No Feels Safe at Home: Yes Safety Concerns: Feels Safe At This Time Assistive Devices: Cane, Walker and Wheelchair Radiation History DIAGNOSIS: 2010? Cervical cancer. 2013? Colon cancer 2022. Endometrial cancer. TREATMENT: 2010. Pelvic radiation therapy with brachytherapy. Completed at [facility]. Limited records available. 2013. Partial colectomy with adjuvant chemotherapy. Review of Systems Review of Systems: Vaginal bleeding which has been persistent since biopsy. Physical Exam Constitutional: WD/WN, vitals as above Skin: no rashes, warm and dry Psychiatric: A+Ox3, euthymic affect Genitourinary: Pelvic exam deferred today due to patient's condition. PG Care Time/CCT Total # of Minutes Spent Total Time Spent with Patient: Total time spent is greater than 50% in coordination of care (as documented) at patient's floor/unit and/or counseling patient: Coding Level of Care Code 83476 INT INP/OBS CARE 2/55MIN Diagnoses Colon cancer C18.9 Cervical cancer C53.9 Endometrial cancer C54.1
[2022-10-23] MEDS: [UNRECOGNIZED DRUG - REMARK] SCH (18:05)
[2022-10-23] MEDS ORDERED: GADOBUTROL 65ML VIAL IV ONE (20:49)
[2022-10-23] MEDS: GABAPENTIN 250 MG/5 ML 470 ML BTL PO SCH (21:14)
[2022-10-24] MEDS: [UNRECOGNIZED DRUG - REMARK] SCH ×2 (00:53→11:05)
[2022-10-24] MEDS: HYDROmorphone HCL 2 MG TAB PO PRN ×2 (01:39→09:30)
--- NOTE | 2022-10-24 04:12 | Consultation ---
Date of Consultation October 24, 2022 Assessment & Plan (1) Endometrial cancer: We await confirmatory records from [facility] but patient has an apparent metachronous primary endometrial carcinoma. Abdominal imaging from September suggests regional adenopathy, peritoneal deposits, and prominent ascites with the potential for malignant involvement there. Based on the apparent peritoneal involvement she would be FIGO stage IVB. Were there is a de evan diagnosis, she might get a reasonable response to the combination of Taxol/carboplatinum and pelvic irradiation but her previous pelvic radiation precludes any consideration of surgery and probably limits the amount of radiation she could receive there and her overall performance status bodes poorly for her tolerance of the traditional cytotoxic chemotherapy. Molecular studies are apparently pending from the [facility] and there could be some consideration of noncytotoxic therapy with ICI with or without lenvatinib. This must all be set against the context, however, of her poor performance status. Even non-cytotoxic options are certainly not without potential toxicity which can occasionally be severe. In initial conversation, the patient and her daughter certainly are very concerned about the toxicity of any additional oncologic treatment given her poor tolerance of her previous treatments for cervical and colon cancer. A palliative care only approach is an important and very reasonable option. Suggest that we work as best as possible to stabilize her pain and to see what we can do in terms of achieving some improvement in performance status. I would suggest that she have her telephone conversation with [facility] team on November 02 to learn more about their perception of potential options and her molecular profile but it is clear that she will probably be too weak to travel back and forth there for any treatment. Based on the molecular findings I will be happy to reconvene with patient after that conversation to see if there are systemic options to consider that can be given locally Radiation oncology is also reviewing for any role for palliative radiation to the pelvis to try to control her cervical bleeding (2) Cervical cancer: Previously treated cervical carcinoma does not seem to be an oncologic issue at this time but unfortunately the radiation to her pelvis will be of practical import in terms of the ability to offer any additional radiation as palliation. It may further be the source of additional episodes of bowel obstruction (3) Colon cancer: Await [facility] data for confirmation but the current process seems to be a metachronous primary rather than a recurrence of her colon cancer (4) Gene mutation: There is a family history of uterine cancer and her metachronous primaries in the colon and endometrium are suggestive of possible germline mutation based risk. Await data from the [facility] which will likely include at least microsatellite testing that might imply the presence of Sullivan syndrome. If so, germline confirmation may be worthwhile the purpose of family members understanding their own potential risk for malignancy and with that making appropriate plans for surveillance or preemptive intervention Plan She is certainly not a candidate for aggressive and definitive therapy and even oncologic palliative therapy could have some important toxicities for this patient whose current performance status is 3 and who is very concerned to avoid toxicities similar to those that she previously experienced with treatment for her cervical and colon cancer. Will be important to learn the [facility] data confirming her diagnosis and also her molecular profile and the potential noncytotoxic options that might define. Even those are not without toxicity and could be concerning if she does not get a fundamental improvement in performance status over the next days. Certainly should focus on palliative intervention with optimal pain management and, if feasible, consideration of radiation for control of vaginal bleeding. Would foresee the next week as inpatient with perhaps a transition to either rehab or even home spent in stabilizing symptoms and seeing what we can do at terms of improving her performance status, getting input from [facility] about their perception of options, and I can thwn reconvene with the patient and her daughter to make some final determinations on how she would like to proceed History of Present Illness Reason for Consultation: Patient with previous cervical and colon cancer is now with what appears to be a metachronous primary endometrial carcinoma admitted with fall and head trauma in the context of decreasing performance status and anasarca, oncology input sought with regards to prognosis and realistic treatment options Attending Physician: Gopi Cavanaugh MD History of Present Illness Patient was previously treated in 2010 for cervical carcinoma primarily with combination external beam and brachytherapy apparently without surgery or chemotherapy and then in 2013 for colon cancer treated with surgery and adjuvant chemotherapy. She had prese nted 1 month ago with vaginal bleeding and was found at that time to have partial small bowel obstruction and a pelvic mass along with peritoneal deposits and prominent ascites with concern over recurrence of one of her previous carcinomas. Given that her original treatment had been at [facility] she was transferred to that institution for further care. We await formal records from that institution admission but history from her daughter who is trained as a nurse seems accurate and reliable. Ultimate conclusion was apparently of a metachronous primary endometrial carcinoma. There is apparent tumor based molecular review that is still pending and they are scheduled for a telephone consultation with the physician from the [facility] oncology team there on November 02 to be present with potential treatment options. She has been told because of her previous radiation she is not a candidate for surgical excision of her pelvic disease. She has had declining performance status with worsening anasarca and difficulty ambulation. She was on her way to see her local oncologist when she tripped and fell over a curb sustaining facial and head trauma. She is now admitted for stabilization. Patient had continued vaginal bleeding and worsening problems with abdominal/pelvic pain. Allergies Allergy/AdvReac Type Severity Reaction Status Date / Time No Known Drug Allergies Allergy Unknown . Verified 09/30/22 17:38 Home Medications Medication Instructions Recorded Confirmed Type acetaminophen 500 mg tablet 500 - 1,000 mg PO Q6H PRN Pain 09/30/22 10/22/22 History (Tylenol Extra Strength) metoprolol succinate 50 mg 50 mg PO DAILY 09/30/22 10/22/22 History tablet,extended release 24 hr pantoprazole 40 mg tablet,delayed 40 mg PO QAM 09/30/22 10/22/22 History release enoxaparin 100 mg/mL subcutaneous 100 mg subcut BID 10/22/22 10/22/22 History syringe granisetron HCl 1 mg tablet 1 mg PO Q12H PRN n/v 10/22/22 10/22/22 History hydromorphone 2 mg tablet 2 mg PO Q3H PRN Pain 10/22/22 10/22/22 History (Dilaudid) metoclopramide HCl 10 mg tablet 10 mg PO BID 10/22/22 10/22/22 History (Reglan) simethicone 1 tab PO Q6H PRN Other 10/22/22 10/22/22 History Patient History Medical History (Updated 10/24/22 @ 04:25 by Melvin Sanders MD) Cervical cancer Colon cancer Endometrial cancer Social History Smoking Status: Never smoker Second Hand Exposure: No; Do You Dip or Chew Tobacco: No; Tobacco Cessation Education Requested by Patient: No Hx Alcohol Use: No Hx Substance Use: No Preferred Language: Lebanese Communication Ability: Effective Tanning Wheel Filler Required: No Beliefs That Will Affect Care: None Current Living Situation: Alone Other Information That Helps Us Care for You: No Feels Safe at Home: Yes Safety Concerns: Feels Safe At This Time Assistive Devices: Cane, Walker and Wheelchair Physical Exam Physical Exam: Vital signs are stable but patient has difficulty getting up and about with an ECOG performance status of 3. She has a laceration over the bridge of her nose and a number of contusions and other lacerations on her face but is without evidence of major cervical trauma or more significant head trauma. Patient is alert and appropriate in conversation. Lung and cardiac examinations are stable, abdomen is mildly distended but not tense with ascites. There are no peritoneal signs but she does have some mild diffuse tenderness. Results & Data Vital Signs (Past 12 Hours) Vital Signs Temp Pulse Pulse Resp BP Pulse Ox O2 Del Method 10/24/22 00:57 102 H 10/23/22 22:50 37.0 C 99 H 16 110/63 93 Room Air 10/23/22 19:47 36.4 C L 94 H 17 137/82 93 Room Air Laboratory Results Laboratory Results - last 24 hr 10/23/22 10/23/22 10/23/22 07:42 07:42 07:42 WBC Cancelled RBC Cancelled Hgb Cancelled Hct Cancelled MCV Cancelled MCH Cancelled MCHC Cancelled RDW Std Deviation Cancelled RDW Coeff of Adam Cancelled Plt Count Cancelled MPV Cancelled Immature Gran % (Auto) Cancelled Neut % (Auto) Cancelled Lymph % (Auto) Cancelled [place] % (Auto) Cancelled Eos % (Auto) Cancelled Baso % (Auto) Cancelled Neut # (Auto) Cancelled Lymph # (Auto) Cancelled [place] # (Auto) Cancelled Eos # (Auto) Cancelled Baso # (Auto) Cancelled Immature Gran # (Auto) Cancelled Absolute Nucleated RBC Cancelled Nucleated RBC % (auto) Cancelled Neutrophils % (Manual) Cancelled Band Neutrophils % Cancelled Lymphocytes % (Manual) Cancelled Prolymphocyte % Cancelled Reactive Lymphs % (Man) Cancelled Monocytes % (Manual) Cancelled Eosinophils % (Manual) Cancelled Basophils % (Manual) Cancelled Metamyelocytes % (Man) Cancelled Myelocytes % (Man) Cancelled Promyelocytes % (Man) Cancelled Blast Cells % (Manual) Cancelled Plasma Cell % (Manual) Cancelled Other Cells % Cancelled Nucleated RBC % Cancelled Neutrophils # (Manual) Cancelled Band Neutrophils # Cancelled Total Absolute Neuts Cancelled Lymphocytes # (Manual) Cancelled Prolymphocyte # Cancelled Reactive Lymphs # Cancelled Total Abs Lymphocytes Cancelled Monocytes # (Manual) Cancelled Eosinophils # (Manual) Cancelled Basophils # (Manual) Cancelled Metamyelocytes # (Man) Cancelled Myelocytes # (Manual) Cancelled Promyelocytes # (Man) Cancelled Blast Cells # (Man) Cancelled Plasma Cell # (Manual) Cancelled Other Cells # Cancelled Nucleated RBCs # (Man) Cancelled Hypersegmented Neuts Cancelled Hyposegmented Neuts Cancelled Hypogranular Neuts Cancelled Large Granular Lymphs Cancelled # Lrg Granular Lymphs Cancelled Hairy Cells Cancelled Smudge Cells Cancelled Toxic Granulation Cancelled Toxic Vacuolation Cancelled Dohle Bodies Cancelled Lg Rods Cancelled Platelet Estimate Cancelled Hypogranular Platelets Cancelled Giant Platelets Cancelled Platelet Satelliting Cancelled RBC Morphology Cancelled Polychromasia Cancelled Hypochromasia Cancelled Poikilocytosis Cancelled Basophilic Stippling Cancelled Anisocytosis Cancelled Microcytosis Cancelled Macrocytosis Cancelled Spherocytes Cancelled Pappenheimer Bodies Cancelled Sickle Cells Cancelled Target Cells Cancelled Tear Drop Cells Cancelled Ovalocytes Cancelled Stomatocytes Cancelled Adkins-[place] Bodies Cancelled Echinocytes Cancelled Acanthocytes (Spur) Cancelled Rouleaux Cancelled RBC Agglutinates Cancelled Schistocytes Cancelled Sezary Cell Cancelled Sodium 125 L Potassium 5.1 Chloride 93 L Carbon Dioxide 23 Anion Gap 9 BUN 51 H Creatinine 1.19 Est Cr Clr Drug Dosing 49.5 Est GFR ( Amer) 51.0 Est GFR (Non-Af Amer) 44.0 BUN/Creatinine Ratio 42.9 H Glucose 100 H Calcium 8.9 Magnesium 1.7 Total Bilirubin 0.5 AST 12 L ALT 6 L Alkaline Phosphatase 97 Total Protein 5.9 L Albumin 3.0 L Globulin 2.9 Albumin/Globulin Ratio 1.0 Nasal Screen MRSA (PCR) Hepatitis C Ab (EIA) Pending Blood Parasites ID Cancelled 10/23/22 10/23/22 08:24 Unknown WBC 15.54 H RBC 4.28 Hgb 10.9 L Hct 32.8 L MCV 76.6 L MCH 25.5 MCHC 33.2 RDW Std Deviation 51.0 H RDW Coeff of Adam 18.5 H Plt Count 526 H MPV 8.9 L Immature Gran % (Auto) 0.6 Neut % (Auto) 80.4 Lymph % (Auto) 11.8 [place] % (Auto) 7.0 Eos % (Auto) 0.1 Baso % (Auto) 0.1 Neut # (Auto) 12.49 H Lymph # (Auto) 1.84 [place] # (Auto) 1.09 H Eos # (Auto) 0.02 Baso # (Auto) 0.01 Immature Gran # (Auto) 0.09 Absolute Nucleated RBC Nucleated RBC % (auto) Neutrophils % (Manual) Band Neutrophils % Lymphocytes % (Manual) Prolymphocyte % Reactive Lymphs % (Man) Monocytes % (Manual) Eosinophils % (Manual) Basophils % (Manual) Metamyelocytes % (Man) Myelocytes % (Man) Promyelocytes % (Man) Blast Cells % (Manual) Plasma Cell % (Manual) Other Cells % Nucleated RBC % Neutrophils # (Manual) Band Neutrophils # Total Absolute Neuts Lymphocytes # (Manual) Prolymphocyte # Reactive Lymphs # Total Abs Lymphocytes Monocytes # (Manual) Eosinophils # (Manual) Basophils # (Manual) Metamyelocytes # (Man) Myelocytes # (Manual) Promyelocytes # (Man) Blast Cells # (Man) Plasma Cell # (Manual) Other Cells # Nucleated RBCs # (Man) Hypersegmented Neuts Hyposegmented Neuts Hypogranular Neuts Large Granular Lymphs # Lrg Granular Lymphs Hairy Cells Smudge Cells Toxic Granulation Toxic Vacuolation Dohle Bodies Lg Rods Platelet Estimate Hypogranular Platelets Giant Platelets Platelet Satelliting RBC Morphology Polychromasia Hypochromasia Poikilocytosis Basophilic Stippling Anisocytosis Microcytosis Macrocytosis Spherocytes Pappenheimer Bodies Sickle Cells Target Cells Tear Drop Cells Ovalocytes Stomatocytes Adkins-[place] Bodies Echinocytes Acanthocytes (Spur) Rouleaux RBC Agglutinates Schistocytes Sezary Cell Sodium Potassium Chloride Carbon Dioxide Anion Gap BUN Creatinine Est Cr Clr Drug Dosing Est GFR ( Amer) Est GFR (Non-Af Amer) BUN/Creatinine Ratio Glucose Calcium Magnesium Total Bilirubin AST ALT Alkaline Phosphatase Total Protein Albumin Globulin Albumin/Globulin Ratio Nasal Screen MRSA (PCR) Negative Hepatitis C Ab (EIA) Blood Parasites ID Diagnostic Findings 09/22/2022. CT of abdomen/pelvis. 1. There is marked thickening of the endometrial cavity with spiculation concerning for metastatic endometrial carcinoma. Prominent lymph nodes are seen in the mesentery and retroperitoneum and there are ill-defined mesenteric mass is concerning for peritoneal deposits. Prominent ascites is seen. 2. Partial small bowel obstruction with numerous distended loops of small bowel which appear to transition sagittally to underdistended bowel distal to the pelvic mass. 3. Additional findings as above. Cervical Spine CT 10/22/22 15:08 CT SCAN OF THE CERVICAL SPINE CLINICAL HISTORY: Trauma. COMPARISON STUDY: No priors. TECHNIQUE: CT scan of the cervical spine is performed from the skull base to the upper thoracic spine. Images are reviewed in the axial, sagittal, and coronal planes. IV contrast was not administered for this examination. A dose lowering technique was utilized adhering to the principles of ALARA. FINDINGS: Skeletal structures: The skeletal structures are osteopenic. C1 is fused with the occiput. There is partial bony fusion of C2 and C3. There is no evidence of fracture or subluxation involving the cervical spine. Vertebral body height is maintained. There is minimal anterolisthesis at C3-C4. Alignment is otherwise preserved. There is straightening of the cervical lordosis. Anterior osteophytes are seen throughout. The odontoid process and lateral masses are intact. The atlantoaxial articulation is preserved. The spinous processes appear intact. There is [id number] multilevel facet arthropathy. Intervertebral discs: There is mild multilevel disc space narrowing. Central canal: Grossly patent. Soft tissues: The prevertebral and paraspinous soft tissues are within normal limits. Calvarium: The visualized calvarium at the skull base appears intact. Brain parenchyma: Partially visualized brain parenchyma at the skull base is within normal limits. Sinuses and mastoids: The visualized paranasal sinuses are clear. The mastoid air cells are well pneumatized. Lung apices: Clear as visualized. IMPRESSION: 1. There is no evidence of cervical spine fracture or subluxation. 2. Osteopenia with developmental and degenerative change as above. ACT 112: Negative or not required by law. Electronically signed by: Juan Seo M.D. 10/22/2022 4:43 PM Chest X-Ray 10/22/22 15:08 SUPINE PORTABLE AP CHEST RADIOGRAPH CLINICAL HISTORY: trauma COMPARISON STUDY: Chest radiograph September 30, 2022. FINDINGS: There is no pneumothorax on supine exam. Minimal hazy right basilar opacity is noted. There may be a trace right pleural effusion. A hiatal hernia is noted. Cardiomediastinal silhouette is otherwise unremarkable on supine exam. IMPRESSION: 1. No pneumothorax identified on supine exam. 2. Hazy right basilar opacity. This could reflect a small right pleural effusion or minimal airspace opacity. ACT 112: Negative or not required by law. Electronically signed by: Ernesto Nguyen M.D. 10/22/2022 5:[address] 10/22/22 15:[address] WITHOUT CONTRAST CLINICAL HISTORY: trauma COMPARISON STUDY: None. TECHNIQUE: A maxillofacial CT was performed without IV contrast. Coronal and sagittal reformats were viewed. Automated exposure control was utilized for the study. A dose lowering technique was utilized adhering to the principles of ALARA. FINDINGS: There may be a nasal contusion. No acute facial bone fracture is identified. Globes are intact. No retrobulbar hematoma. Alignment of the temporomandibular joints is anatomic. Severe degenerative changes within the upper cervical spine are noted. Cervical spine CT will be reported separately. IMPRESSION: No acute facial fracture. ACT 112: Negative or not required by law. Electronically signed by: Ernesto Nguyen M.D. 10/22/2022 4:[address] 10/22/22 15:08 CT OF THE HEAD WITHOUT CONTRAST CLINICAL HISTORY: trauma COMPARISON STUDY: No previous studies for comparison. CT DOSE: 1212.84 mGy.cm TECHNIQUE: Helical axial images of the head were obtained without IV contrast. Automated exposure control was utilized for the study. A dose lowering technique was utilized adhering to the principles of ALARA. FINDINGS: No acute intracranial hemorrhage, midline shift or mass effect is present. A 4 mm calcific density within the left cerebellar hemisphere is noted. This is not acute. There is bilateral basilar ganglia calcification. The ventricular system is unremarkable. The basal cisterns are patent. No extra- axial collections are present. There are no findings to suggest acute dural sinus thrombosis or acute territorial infarct. No significant calvarial abnorm alities are present. Visualized portions of the sinuses and mastoid air cells are clear. IMPRESSION: 1. No acute intracranial findings. 2. No acute calvarial fracture. ACT 112: Negative or not required by law. Electronically signed by: Ernesto Nguyen M.D. 10/22/2022 4:33 PM Knee X-Ray 10/22/22 15:08 XR knee LT 1 or 2V routine CLINICAL HISTORY: trauma COMPARISON: None FINDINGS: No definite acute fracture is identified. Note is made of a vertical lucency through the patella on AP projection. There is no joint effusion. A 1.6 cm calcific density medial to the distal tibial plateau is chronic. Severe medial compartment joint space narrowing is noted with osteophytosis. There are several suspected joint bodies. Soft tissue swelling is noted. IMPRESSION: 1. Vertical lucency through the patella on AP projection. This is likely artifactual however an acute nondisplaced fracture could appear similar. 2. Severe left knee osteoarthritis with several suspected joint bodies. 3. Left knee soft tissue swelling. ACT 112: Negative or not required by law. Electronically signed by: Ernesto Nguyen M.D. 10/22/2022 4:39 PM Knee X-Ray 10/22/22 15:08 XR knee RT 1 or 2V routine CLINICAL HISTORY: trauma COMPARISON: None FINDINGS: No definite acute fracture is identified. There is no joint effusion. Apparent lucency within the patella on AP projection is noted. This appears to have sclerotic margins. Severe medial compartment joint space narrowing is noted. There is knee soft tissue swelling. Patellofemoral compartment osteophytosis also present. IMPRESSION: 1. No definite acute fracture. Apparent lucency within the patella on AP projection. This is likely artifactual or chronic. An acute fracture is considered less likely although could be correlated with point tenderness. 2. Severe medial compartment osteoarthritis of the right knee. 3. Right knee soft tissue swelling. ACT 112: Negative or not required by law. Electronically signed by: Ernesto Nguyen M.D. 10/22/2022 5:01 PM PG Care Time/CCT Total # of Minutes Spent Total Time Spent with Patient: Total time spent is greater than 50% in coordination of care (as documented) at patient's floor/unit and/or counseling patient: Coding Level of Care Code 13045 IN/OBS CONSULT LVL 3,45M History Expanded Problem Focused Exam Expanded Problem Focused Medical Decision Making High Complexity Diagnoses Endometrial cancer C54.1 Cervical cancer C53.9 Colon cancer C18.9 Gene mutation Z15.89
[2022-10-24] MEDS: ACETAMINOPHEN 325 MG TAB PO PRN ×2 (05:34→09:37)
--- NOTE | 2022-10-24 05:54 | Magnetic Resonance Report ---
Exam(s): MRI PELVIS W/WO Contrast IV Amt: 10.5cc gadavist EXAM: MR Pelvis Without and With Intravenous Contrast CLINICAL HISTORY: Reason for exam: Refractory uterine bleeding - bx 10/05/2022. TECHNIQUE: Multiplanar magnetic resonance images of the pelvis without and with intravenous contrast. CONTRAST: Patient received 10.5cc gadavist of IV contrast COMPARISON: No relevant prior studies available. FINDINGS: Bowel: There is hyperenhancement of the distal colonic and rectal wall. No obstruction. Intraperitoneal space: There is moderate ascites. Moderate volume of abdominal and pelvic ascites. Bladder: Unremarkable. No stones. No mass. Ovaries: Unremarkable as visualized. No mass or complex cyst. Uterus/cervix: Uterus is retroverted. Endometrial stripe is normal in thickness and appearance. Bones/joints: Unremarkable. No acute fracture. No dislocation. Soft tissues: Unremarkable. Vasculature: Unremarkable. No lower abdominal aortic aneurysm. Lymph nodes: Unremarkable. No enlarged lymph nodes. IMPRESSION: 1. Moderate ascites 2. Hyperenhancement of the distal colonic and rectal wall could be from proctocolitis Electronically signed by: Beau Zuniga MD 10/24/22 05:53 AM
[2022-10-24 06:16] LABS: Albumin Globulin Ratio 1.3 (0.9-2); Albumin Level 3.3 gm/dl (3.4-5.0); BUN Creatinine Ratio 38.6 (10-20); Bilirubin,Total 0.5 mg/dl (0.2-1.0); Calcium 8.9 mg/dl (8.6-10.3); Creatinine Clr Calc Pharmacy 40.6 ml/min; Est GFR (African American) 40.2 ml/min; Est GFR (Non-African American) 34.6 ml/min; Globulin 2.5 gm/dl (2.5-4.0); Magnesium 1.8 mg/dl (1.7-2.4); Potassium 5.3 mmol/L (3.5-5.1); Total Protein 5.8 gm/dl (6.0-8.3)
[2022-10-24 06:35] LABS: Ferritin 229.5 ng/ml (8-388)
[2022-10-24 06:41] LABS: Folate (Folic Acid),Ser orPlas 7.96 ng/ml (>5.38)
[2022-10-24] MEDS: CEFEPIME 2,000 MG in SYRINGE 0 ML IV SCH ×2 (08:06→19:31)
[2022-10-24] MEDS: ENOXAPARIN 100 MG/1ML SYR SQ SCH ×2 (08:06→21:25)
[2022-10-24] MEDS: METOPROLOL SUCC 50MG EXT REL TAB PO SCH (08:08)
[2022-10-24] MEDS: PANTOprazole 40 MG TAB PO SCH (08:09)
[2022-10-24] MEDS: METOCLOPRAMIDE HCL 10 MG TABLET PO SCH ×2 (08:09→21:24)
[2022-10-24] MEDS: GABAPENTIN 250 MG/5 ML 470 ML BTL PO SCH (08:23)
[2022-10-24] MEDS ORDERED: GRANISETRON HCL 1 MG PO PRN (08:35)
[2022-10-24 08:48] LABS: Hematocrit (blood only) 26.3 % (37.0-47.0); Hemoglobin 8.8 g/dl (12.0-16.0); Mean Corpuscular Hemoglobin 25.6 pg (25.0-34.0); Mean Corpuscular Hgb Conc 33.5 g/dL (32.0-36.0); Mean Corpuscular Volume 76.5 fL (80.0-100.0); Mean Platelet Volume 9.3 fL (9.4-12.4); Platelet Count 360 K/uL (130-400); RDW Coefficient of Variation 18.6 % (11.5-14.5); RDW Standard Deviation 51.2 fL (36.4-46.3); Red Blood Count 3.44 M/uL (4.20-5.40); White Blood Count 12.15 K/ul (4.8-10.8)
[2022-10-24 09:07] LABS: Acanthocytes 2+; Basophils # (auto) 0.01 K/uL (0-0.2); Basophils % (auto) 0.1 %; Eosinophils # (auto) 0.03 K/uL (0-0.50); Eosinophils % (auto) 0.2 %; Immature Granulocytes # (auto) 0.09 K/uL (0.01-0.20); Immature Granulocytes % (auto) 0.7 %; Lymphocytes # (auto) 1.17 K/uL (1.2-3.4); Lymphocytes % (auto) 9.6 %; Monocytes % (auto) 5.8 %; Neutrophils # (auto) 10.15 K/uL (1.40-6.50); Neutrophils % (auto) 83.6 %; Polychromasia 1+
[2022-10-24] MEDS: GABAPENTIN 150 MG/3 ML UDP PO SCH ×2 (09:22→21:26)
[2022-10-24] MEDS: ALBUMIN 25% 25 GM/100 ML VIAL IV SCH ×2 (09:39→21:26)
[2022-10-24] MEDS ORDERED: HYDROmorphone INJ 1 MG/ML SYRINGE IV STA (09:52)
[2022-10-24] MEDS ORDERED: HYDROmorphone HCL 2 MG TAB PO PRN (10:36)
[2022-10-24] MEDS: FUROSEMIDE 40 MG/4 ML VIAL IV SCH ×2 (11:58→23:32)
[2022-10-24] MEDS: ACETAMINOPHEN 500 MG TAB PO SCH ×2 (13:20→21:24)
[2022-10-24] MEDS: HYDROmorphone INJ 2 MG/ML SYR/VIAL IV PRN ×2 (14:46→23:26)
[2022-10-24] MEDS: ONDANSETRON INJ 2 MG/ML 2 ML VIAL IV PRN (16:14)
--- NOTE | 2022-10-24 17:30 | Hospitalist Progress Note ---
Date of Service October 24, 2022 Assessment & Plan (1) CHI (closed head injury): Plan: Ct is a 77 yo F with a known endometrial cancer who was admitted on 10/22/22 after falling out of her daughters car on the way home from rehab. (1) CHI (closed head injury): - Secondary to mechanical fall getting out of car - CT scan of the head was negative for any acute findings (2) Contusion of face: - Secondary to mechanical fall - CT of the head and face with no evidence of acute fracture (3) Contusion of knee: - Secondary to mechanical fall - No definitive fracture but there is some lucency. - PT/OT to see how patient tolerates function. If function is limited, may warrant consultation with orthopedics (4) Acute hyponatremia: - Sodium at 125 on admission --> up to 126 today - This level may be a result of dilution as patient appears to have significant volume overload - Diuresis has been initiated - Patient given albumin by admitting team - Follow serial labs (5) Endometrial mass: - Patient with previous history of cervical cancer as well as colon cancer. - Patient received considerable radiation for her cervical cancer in the past.At this time patient and daughter indicate that completed treatment resulted in remission of all cancer of both the colon as well as the cervix - Patient most recently identified with endometrial mass.Patient was transferred to [facility] in [place] where biopsy was obtained. Pathology results are not immediately available, but patient and daughter indicate that it was positive for malignancy. Staining is not available so differentiation is not known at this time - Patient continues to have active bleeding from biopsy which was completed 10/05/2022 - Discussed case with Dr. Jaclyn Rueda from radiation oncology (see consult note); no immediate role for radiation therapy to stop bleeding until previous radiation records can be obtained - Also discussed with Dr. Fish from oncology (see consult note); once records are reviewed, there may be options regarding chemotherapeutic or immunological treatment but cannot determine that until records are reviewed with current pathology. We will request records and have them scanned into [employer] and forwarded to Dr. Fish and Mohit Long discussion with patient and daughter regarding probable third primary malignancy. Patient does want to undergo treatment but understands that current state may result in palliative care and/or hospice. She understands that most likely any treatment will not be curative. She is very engaged in conversation and reports that she does not want to have any heroic resuscitation and would defer from any cardiopulmonary resuscitation including chest compressions, endotracheal intubation, mechanical ventilation or feeding tubes should she have a significant decline. She would want to continue with treatment for any illnesses associated with her malignancy as well as treatment for malignancy if it is available. If it is determined that significant treatment is futile, patient does indicate that she would prefer to be at home on hospice when it is time for her to pass. Daughter is very supportive with her mother's decision. -- Update on 10/24/22 -- case discussed with Dr. Matta from palliative care team (formal consult has been placed but will not get done until 10/26/22). Recommended re-evaluating two possible routes (MOBILE HEALTH VEHICLE OPERATOR vs. medical optimization) once pain was controlled --> this was done and patient confirmed that she wants to treat pain while waiting to hear about possibility for cancer directed options, even if these will not be curative. No plans to transition to MOBILE HEALTH VEHICLE OPERATOR only today or to go home with home hospice just yet. Pain management regimen adjusted according to Dr. Matta's recommendations: 1. Scheduled Tylenol 1000mg q8 hours. 2. Dilaudid 2mg PO q3 hours prn for moderate pain. Concurrent order for Dilaudid 4mg po q3 horus for severe pain. 3. Additional dose of IV Dilaudid 1mg prn for breakthrough pain. As for transition to IV only/drip/fentanyl patch --> this should not be made until patient is requiring 5-6 PO doses of Dilaudid per day. Case management team is aware of daughter request for [place] emergency request to bring patient's son home from the [employer] --> recommend this be pursued once definitive care plans are established (ie eventual transition to home hospice vs. cancer directed therapy. At this time, due to uterine bleeding, severe anasarca, electrolyte imbalance, patient's profound weakness, will continue to remain inpatient pending complete work-up and determination of treatment plan early next week. (6) HTN (hypertension): Plan: Treated with Toprol XL 50 mg p.o. daily at home May be exacerbated secondary to pain from fall We will continue home medications (7) DVT (deep venous thrombosis): Plan: Recent diagnosis and most likely secondary to known malignancy Patient was discharged on enoxaparin 100 mg subcutaneously twice daily Will review for appropriateness of DOAC Ambulate as tolerated Admission and Anticipated Discharge Date Admission Date: October 22, 2022 Subjective Mrs. Hines was initially evaluated in the AM when daughter was present at bedside. Patient was audibly moaning when daughter was present in room (however nursing staff said this is a pattern -- when daughter is there, patient audibly moans and cries, yet when daughter is gone, patient appears comfortable, stops crying and moaning). Daughter makes requests to move to comfort care and home hospice. She also requests I work with [employer] to write an emergency communication order so her brother (the patient's son) can be flown home from his [employer] ship due to an imminent of a family member (his mother). Daughter makes requests for Iv pain medication or a fentanyl patch rather an PO meds. Nursing staff said patient refused AM dose of Dilaudid (for fear of not being alert when daughter arrived). Upon exam after oral dilaudid dose as well as an extra IV dilaudid dose was administer --> and also after daughter had gone home for the day --> patient appeared comfortable and conversant. I had discussed two different paths with her: 1. MOBILE HEALTH VEHICLE OPERATOR. 2. controlling pain while also exploring cancer directed therapy (ie which would require her to remain admitted likely at least through the weekend until Dr. Sanders had a chance to communicate with [facility] oncology team). Patient said the second option is what makes sense for her. Review of Systems Review of Systems: All systems reviewed & are unremarkable except as noted in HPI & below Physical Exam Constitutional: WD/WN, vitals as above cooperative Eyes: PERRL, conjunctivae normal, anicteric sclerae ENMT: + dried blood on nose and forehead Neck: trachea midline Respiratory: normal respiratory effort, lungs clear to auscultation Cardiovascular: Rate/Rhythm: regular rhythm Extremities: + edema Gastrointestinal (Abdomen): normal bowel sounds, soft, nontender, no hepatosplenomegaly Musculoskeletal: Head/Neck/Chest: normocephalic and head atraumatic Skin: no rashes, warm and dry Neurologic: moves all extremities Psychiatric: A+Ox3, euthymic affect Results & Data Results & Data Vital Signs (Past 12 Hours) Vital Signs Temp Pulse Pulse Resp BP Pulse Ox O2 Del Method 10/24/22 14:46 36.4 C L 101 H 18 129/80 94 Room Air 10/24/22 06:01 97 H 10/24/22 07:29 36.5 C 98 H 20 121/77 93 Room Air PG Care Time/CCT Total # of Minutes Spent Total Time Spent with Patient: Total time spent is greater than 50% in coordination of care (as documented) at patient's floor/unit and/or counseling patient: C[place] [address] SUB INP/OBS CARE 2/35MIN Patient Type Established Diagnoses CHI (closed head injury) S09.90XA
[2022-10-24] MEDS: PROMETHAZINE HCL 6.25 MG in SODIUM CHLORIDE 0.9% 50 ML IV PRN (19:14)
[2022-10-25] MEDS: ACETAMINOPHEN 500 MG TAB PO SCH (05:47)
[2022-10-25] MEDS: PROMETHAZINE HCL 6.25 MG in SODIUM CHLORIDE 0.9% 50 ML IV PRN ×2 (06:09→17:49)
[2022-10-25 06:59] LABS: Basophils # (auto) 0.01 K/uL (0-0.2); Basophils % (auto) 0.1 %; Eosinophils # (auto) 0.01 K/uL (0-0.50); Eosinophils % (auto) 0.1 %; Hematocrit (blood only) 29.6 % (37.0-47.0); Hemoglobin 9.3 g/dl (12.0-16.0); Immature Granulocytes # (auto) 0.07 K/uL (0.01-0.20); Immature Granulocytes % (auto) 0.5 %; Lymphocytes # (auto) 1.64 K/uL (1.2-3.4); Lymphocytes % (auto) 10.6 %; Mean Corpuscular Hemoglobin 24.9 pg (25.0-34.0); Mean Corpuscular Hgb Conc 31.4 g/dL (32.0-36.0); Mean Corpuscular Volume 79.1 fL (80.0-100.0); Mean Platelet Volume 9.1 fL (9.4-12.4); Monocytes # (auto) 0.88 K/uL (0.11-0.59); Monocytes % (auto) 5.7 %; Neutrophils # (auto) 12.84 K/uL (1.40-6.50); Platelet Count 470 K/uL (130-400); RDW Coefficient of Variation 18.5 % (11.5-14.5); RDW Standard Deviation 52.8 fL (36.4-46.3); Red Blood Count 3.74 M/uL (4.20-5.40); White Blood Count 15.45 K/ul (4.8-10.8)
[2022-10-25 07:14] LABS: Albumin Globulin Ratio 1.5 (0.9-2); Albumin Level 3.8 gm/dl (3.4-5.0); BUN Creatinine Ratio 37.4 (10-20); Bilirubin,Total 0.6 mg/dl (0.2-1.0); Calcium 9.1 mg/dl (8.6-10.3); Creatinine Clr Calc Pharmacy 33.9 ml/min; Est GFR (African American) 32.2 ml/min; Est GFR (Non-African American) 27.8 ml/min; Globulin 2.5 gm/dl (2.5-4.0); Magnesium 1.8 mg/dl (1.7-2.4); Potassium 5.1 mmol/L (3.5-5.1); Total Protein 6.3 gm/dl (6.0-8.3)
--- NOTE | 2022-10-25 07:29 | Hospitalist Progress Note ---
Date of Service October 25, 2022 Assessment & Plan (1) Goals of care, counseling/discussion: Plan: goals of care counseling discussed today patient will transition to comfort care measures. Continuous infusion of Dilaudid with as needed adjustment for pain control centering from recurrence of abdominal mass with previous treatment for endometrial carcinoma and radiation therapy. Mass was biopsied recently but pain is escalated and on tolerable state family is at bedside all the previous treatments -discontinue (2) CHI (closed head injury): Plan: admitted on 10/22/22 after falling out of her daughters car on the way home from rehab. CHI (closed head injury), Contusion of face:Contusion of knee: - Secondary to mechanical fall getting out of car - CT scan of the head was negative for any acute findings hyponatremia: Endometrial mass: - Patient with previous history of cervical cancer as well as colon cancer. - Patient received considerable radiation for her cervical cancer in the past.At this time patient and daughter indicate that completed treatment resulted in remission of all cancer of both the colon as well as the cervix - Patient most recently identified with endometrial mass.Patient was transferred to [facility] in [place] where biopsy was obtained. Pathology results are not immediately available, but patient and daughter indicate that it was positive for malignancy. Staining is not available so differentiation is not known at this time - Patient continues to have active bleeding from biopsy which was completed 10/05/2022 - Discussed case with Dr. Jaclyn Rueda from radiation oncology (see consult note); no immediate role for radiation therapy to stop bleeding until previous radiation records can be obtained - Also discussed with Dr. Fish from oncology (see consult note); once records are reviewed, there may be options regarding chemotherapeutic or immunological treatment but cannot determine that until records are reviewed with current pathology. We will request records and have them scanned into [employer] and forwarded to Dr. Cisneros -- ONn 10/24/22 -- case discussed with Dr. Matta from palliative care team (formal consult has been placed but will not get done until 10/26/22) Case management team is aware of daughter request for [place] emergency request to bring patient's son home from the [place] --> recommend this be pursued once definitive care plans are established (ie eventual transition to home hospice vs. cancer directed therapy. HTN (hypertension): Plan: DVT (deep venous thrombosis): Plan: Admission and Anticipated Discharge Date Admission Date: October 22, 2022 Subjective was called to bedside urgently this am pt was asking to transition to comfort care, daughter was called in earlier, pt states she cannot bear her pain and understands that she will but wants to be kept more comfortable at this time discussed pain options, she has poor experience with control of pain with prn q 3 hours, will institute dilaudid gtt, pt and daughter are in agreement Physical Exam Physical Exam: facial ecchymosis tachypnea tender painful abdomen Results & Data Results & Data Vital Signs (Past 12 Hours) Vital Signs Temp Pulse Pulse Resp BP Pulse Ox O2 Del Method 10/25/22 03:33 98.2 F 104 H 17 103/71 92 Room Air 10/25/22 01:44 114 H 10/24/22 23:35 97.9 F 111 H 15 121/74 90 Room Air 10/24/22 19:41 97.9 F 109 H 20 140/84 93 Room Air PG Care Time/CCT Total # of Minutes Spent Total Time Spent with Patient: Total time spent is greater than 50% in coordination of care (as documented) at patient's floor/unit and/or counseling patient: Coding Level of Care Code 21696 SUB INP/OBS CARE 2/35MIN Diagnoses Goals of care, counseling/discussion Z71.89 CHI (closed head injury) S09.90XA
[2022-10-25] MEDS: HYDROmorphone INJ 2 MG/ML SYR/VIAL IV PRN (07:35)
[2022-10-25] MEDS: ONDANSETRON INJ 2 MG/ML 2 ML VIAL IV PRN (07:39)
[2022-10-25] MEDS ORDERED: HYDROmorphone/NSS 100 MG/100 ML BAG IV SCH (08:00)
[2022-10-25] MEDS ORDERED: ONDANSETRON INJ 2 MG/ML 2 ML VIAL IV PRN (08:00)
[2022-10-25] MEDS ORDERED: GLYCOPYRROLATE 0.2 MG/ML VIAL IV PRN (08:00)
[2022-10-25] MEDS: CEFEPIME 2,000 MG in SYRINGE 0 ML IV SCH (08:01)
[2022-10-25 09:28] LABS: KPC Carbapenemase NOT DETECTED (NotDetected); NDM Carbapenemase NOT DETECTED (NotDetected)
[2022-10-25] MEDS ORDERED: SODIUM CHLORIDE 0.9% 1000ML 1,000 ML IV SCH ×2 (11:30→12:30)
[2022-10-25] MEDS ORDERED: SODIUM CHLORIDE 0.9% 250 ML IV PRN (12:22)
[2022-10-25] MEDS: HYDROmorphone BOLUS from BAG IV PRN (21:36)
[2022-10-25] MEDS: LORazepam 2 MG/1 ML VIAL IV PRN (21:42)
[2022-10-26] MEDS: HYDROmorphone BOLUS from BAG IV PRN ×2 (00:36→03:51)
[2022-10-26] MEDS: PROMETHAZINE HCL 12.5 MG in SODIUM CHLORIDE 0.9% 50 ML IV PRN ×2 (03:57→10:11)
[2022-10-26] MEDS: LORazepam 2 MG/1 ML VIAL IV PRN ×2 (07:16→11:17)
--- NOTE | 2022-10-26 09:10 | Palliative Care Consultation ---
Date of Consultation October 26, 2022 Assessment & Plan (1) Cancer related pain: This case was discussed several times over Tuesday 10/[address] Thomas due to urgent need. Recc for Dilaudid PO dosing of 2 and 4mg + Dilaudid IV back up was recommended along with guidelines for when an Dilaudid STITCHER OPERATOR may be needed. D iscussions were held with pt and dtr who for now wanted to investigate cancer treatment options discussed with Dr Sanders. Dtr did not feel further pall med assistance was needed at this junction. (2) Weakness generalized: (3) Palliative care by specialist: Daughter asked for help figuring out how to get a active service family member home given acuity of situation. Family directed to MARIUM Newell, the emergency communication center of the [employer] [place] who asisst in these sitations: https://www.[employer].org/get-help/-families/emergency-communication.html Family needs to provide primary team or care mgt with: faculty member information: -Full legal name -Rank/rating -Branch of service ([employer], [place], [employer], [employer], [employer]) -Social Security number or Date of - unit address -Information about the deployed unit and home base unit (for deployed service members only) Provider davie Nweell the Information about the emergency: Name and contact for the immediate family member experiencing the emergency (could be spouse, parent, child In addition, there is a milly called [employer]: www.[employer] which is a nonprofit that offers flights to connect people in palliative or critical care with their loved ones. [employer] is a registered non-profit in [place] and the [place] that offers flights worldwide. Families go to: https://[employer]/dprldej-vrd-zagzwzfx/ and submit request for flight. Its free to the family member but its not for groups. (4) Endometrial cancer: (5) Cervical cancer: (6) Colon cancer: (7) Partial small bowel obstruction: Plan * Reccs as above * Family guidance and requested assistance as above * Dtr feels they do not need further pall med assistance for now. Pt wants to see what cancer tx she can try. * Dr Thomas and nursing aware * TS 65 min/chart review, discussions and reccs * Patient not seen. no charge submitted History of Present Illness Reason for Consultation: GOC, cancer pain Attending Physician: Gopi Cavanaugh MD History of Present Illness 77yo female with newly dx metachronous primary endometrial and colon carcinoma. Abdominal imaging from September suggests regional adenopathy, peritoneal deposits, and prominent ascites with the potential for malignant involvement, this is Stage IVb cancer. She has a steadily declining PS. She has a hx of prior cervical ca Following a recent admission she was sent to to acute rehab and dc. On day of dc, dtr picked her up and pt fell when she tried to get out of dtr's car when they reached her home. She has anasarca. No role for RT at this time per rad onc consult note/cancer hx review: 2010. Diagnosis of cervical cancer. Treated with pelvic radiation therapy and interstitial or intracavitary brachytherapy. Outside records unavailable. Completed at [facility]. 2013. Diagnosis of colon cancer. Treated with surgery followed by adjuvant chemotherapy. 10/2022. Diagnosis of endometrial cancer. Patient states she has had vaginal bleeding since her biopsy procedure. Limited records available. 09/22/2022. CT of abdomen/pelvis. 1. There is marked thickening of the endometrial cavity with spiculation concerning for metastatic endometrial carcinoma. Prominent lymph nodes are seen in the mesentery and retroperitoneum and there are ill-defined mesenteric mass is concerning for peritoneal deposits. Prominent ascites is seen. 2. Partial small bowel obstruction with numerous distended loops of small bowel which appear to transition sagittally to underdistended bowel distal to the pelvic mass. 3. Additional findings as above. 10/22/2022. Patient admitted to hospital due to recent fall. 10/22/2022. CT cervical spine. 1. There is no evidence of cervical spine fracture or subluxation. 2. Osteopenia with developmental and degenerative change as above. 10/22/2022. CT head. IMPRESSION: 1. No acute intracranial findings. 2. No acute calvarial fracture. Allergies Allergy/AdvReac Type Severity Reaction Status Date / Time No Known Drug Allergies Allergy Unknown . Verified 09/30/22 17:38 Home Medications Medication Instructions Recorded Confirmed Type acetaminophen 500 mg tablet 500 - 1,000 mg PO Q6H PRN Pain 09/30/22 10/22/22 H istory (Tylenol Extra Strength) metoprolol succinate 50 mg 50 mg PO DAILY 09/30/22 10/22/22 History tablet,extended release 24 hr pantoprazole 40 mg tablet,delayed 40 mg PO QAM 09/30/22 10/22/22 History release enoxaparin 100 mg/mL subcutaneous 100 mg subcut BID 10/22/22 10/22/22 History syringe granisetron HCl 1 mg tablet 1 mg PO Q12H PRN n/v 10/22/22 10/22/22 History hydromorphone 2 mg tablet 2 mg PO Q3H PRN Pain 10/22/22 10/22/22 History (Dilaudid) metoclopramide HCl 10 mg tablet 10 mg PO BID 10/22/22 10/22/22 History (Reglan) simethicone 1 tab PO Q6H PRN Other 10/22/22 10/22/22 History Patient History Medical History (Updated 10/26/22 @ 09:01 by Stephania Matta, MELBA) Cancer related pain Cervical cancer Colon cancer Endometrial cancer Palliative care by specialist Weakness generalized Social History Smoking Status: Never smoker Second Hand Exposure: No; Do You Dip or Chew Tobacco: No; Tobacco Cessation Education Requested by Patient: No Hx Alcohol Use: No Hx Substance Use: No Preferred Language: [place] Communication Ability: Effective Car Unloader Helper Required: No Beliefs That Will Affect Care: Spiritual Current Living Situation: Alone Other Information That Helps Us Care for You: No Feels Safe at Home: Yes Safety Concerns: Feels Safe At This Time Assistive Devices: Cane, Walker and Wheelchair Results & Data Vital Signs (Past 12 Hours) Vital Signs Pulse Resp BP Pulse Ox O2 Del Method 10/26/22 07:19 119 H 18 100/70 92 Room Air Laboratory Results data reviewed Diagnostic Findings data reviewed PG Care Time/CCT Total # of Minutes Spent Total Time Spent: 65 Total Time Spent with Patient: Total time spent is greater than 50% in coordination of care (as documented) at patient's floor/unit and/or counseling patient: Coding Level of Care Code New Pt None Patient Type New History Comprehensive Medical Decision Making High Complexity Diagnoses Cancer related pain G89.3 Weakness generalized R53.1 Palliative care by specialist Z51.5 Endometrial cancer C54.1 Cervical cancer C53.9 Colon cancer C18.9 Partial small bowel obstruction K56.600
[2022-10-26] MEDS ORDERED: PROMETHAZINE HCL 12.5 MG in SODIUM CHLORIDE 0.9% 50 ML IV PRN (10:56)
[2022-10-26] MEDS ORDERED: SCOPOLAMINE 1 MG TDSY TD SCH (11:00)
[2022-10-26] MEDS: ONDANSETRON INJ 2 MG/ML 2 ML VIAL IV SCH ×2 (11:21→14:46)
[2022-10-26] MEDS: ATROPINE SULFATE 1% OP SOLN 5 ML BTL SL PRN ×2 (14:02→14:47)
--- NOTE | 2022-10-26 15:27 | Discharge Summary ---
Date of Service October 26, 2022 Admission HPI Per Admitting Provider The patient is a 77-year-old female with a past medical history including anasarca, endometrial mass, hypertension, DVT right lower extremity and partial small bowel obstruction. She was most recently mated to Aisha Hammonds from 09/30-10/02/2022 for partial small bowel obstruction and DVT of right lower extremity. She was then sent to rehab,, had completed her stay today, and was attempting to get out of her daughter's car and into her daughter's house, when she fell as noted above. Principal Diagnosis pt while on comfort care at 1503 hours on 10/26/22 cause of was secondary to complications of previously diagnosed cervical l cancer Discharge Data Allergies Allergy/AdvReac Type Severity Reaction Status Date / Time No Known Drug Allergies Allergy Unknown . Verified 09/30/22 17:38 Consultations 10/22/22 19:54 ED Decision to Admit Stat 10/23/22 12:15 Consult Radiation Oncology Routine 10/23/22 12:34 Consult Oncology Routine 10/24/22 09:53 Consult Palliative Care Routine 10/25/22 08:00 Consult Palliative Care Routine Ordered Studies 10/22/22 15:08 CT cervical spine wo con Stat CT facial bones wo con Stat CT head/brain wo con Stat 10/23/22 14:23 MRI Pelvis [MR pelvis wo/w con] Routine Hospital Course (1) : PT at 1503 10/26/22 from complications of cervical cancer (2) Goals of care, counseling/discussion: goals of care counseling discussed 10/25 and reconfirmed 10/26/22 patient while on comfort care measures for pain control centering from recurrence of abdominal mass with previous treatment for endometrial carcinoma and radiation therapy. Mass was biopsied recently but pain is escalated familywas at bedside all the previous treatments -discontinued (3) CHI (closed head injury): admitted on 10/22/22 after falling out of her daughters car on the way home from rehab. CHI (closed head injury), Contusion of face:Contusion of knee: - Secondary to mechanical fall getting out of car - CT scan of the head was negative for any acute findings hyponatremia: Endometrial mass: - Patient with previous history of cervical cancer as well as colon cancer. - Patient received considerable radiation for her cervical cancer in the past.At this time patient and daughter indicate that completed treatment resulted in remission of all cancer of both the colon as well as the cervix - Patient most recently identified with endometrial mass.Patient was transferred to [facility] in [place] where biopsy was obtained. Pathology results are not immediately available, but patient and daughter indicate that it was positive for malignancy. Staining is not availabl e so differentiation is not known at this time - Patient continues to have active bleeding from biopsy which was completed 10/05/2022 - Discussed case with Dr. Jaclyn Rueda from radiation oncology (see consult note); no immediate role for radiation therapy to stop bleeding until previous radiation records can be obtained - Also discussed with Dr. Fish from oncology (see consult note); once records are reviewed, there may be options regarding chemotherapeutic or immunological treatment but cannot determine that until records are reviewed with current pathology. We will request records and have them scanned into [employer] and forwarded to Dr. Fish and Mohit -- ONn 10/24/22 -- case discussed with Dr. Matta from palliative care team (formal consult has been placed but will not get done until 10/26/22) Case management team is aware of daughter request for [place] emergency request to bring patient's son home from the [place] --> recommend this be pursued once definitive care plans are established (ie eventual transition to home hospice vs. cancer directed therapy. HTN (hypertension): Plan: DVT (deep venous thrombosis): Plan: Total Time Total Time Spent Total Time Spent (In Minutes): it required greater than 30 minutes to prepare this patient for discharge Discharge Plan Discharge Items Patient Disposition: Reason For Visit: S/P FALL,UTI,HYPONATREMIA,FLUID OVERLOAD Follow-up/Referrals: John Covington [Primary Care Provider] - Medications and DC Order Prescriptions: No Action hydromorphone [Dilaudid] 2 mg Tablet 2 mg PO Q3H PRN (Reason: Pain) metoclopramide HCl [Reglan] 10 mg Tablet 10 mg PO BID Rx Instructions: before meals and at bedtime enoxaparin 100 mg/mL syringe 100 mg subcut BID Rx Instructions: due for dose tonight granisetron HCl [Kytril] 1 mg Tablet 1 mg PO Q12H PRN (Reason: n/v) simethicone 1 tab PO Q6H PRN (Reason: Other) metoprolol succinate 50 mg tablet extended release 24 hr 50 mg PO DAILY pantoprazole 40 mg tablet,delayed release (DR/EC) 40 mg PO QAM acetaminophen [Tylenol Extra Strength] 500 mg Tablet 500 - 1,000 mg PO Q6H PRN (Reason: Pain) Rx Instructions: doseage depends on last time having percocet Admission Data Admit Date/Time: 10/22/22 20:36 Attending Provider: Gopi Cavanaugh Admit Provider: Nomi Dean Primary Care Provider: John Covington Other Providers: Gopi Cavanaugh ; Nomi Dean ; Jaclyn Rueda ; Melvin Sanders ; Stephania Matta ; Tatiana Hernandez Coding Level of Care Code 07546 INP/OBS DISCH >30 MIN Diagnoses R99 Goals of care, counseling/discussion Z71.89 CHI (closed head injury) S09.90XA
[2022-10-26] MEDS ORDERED: CHECK SCOPOLAMINE PATCH PLACEMENT SCH (16:00)
== END 2022-10-26 17:10 | disposition expired | DRG 605 ==
LOC: ED 14:25 → SUATTDRO 20:36 → 2S 20:36 → 3E 10-25 10:24